=== PATIENT | male | born 1935 | race African-American/Black ===

== ENCOUNTER 2017-03-08 07:01 | Emergency (ER) | payer MEDICARE ==
[2017-03-08 07:33] LABS: #Eosinphils 0.3 thou/uL (0.0-0.7); #Monocytes 0.7 thou/uL (0.11-0.59); %Basophils 0.8 % (0.0-1.0); %Eosinophils 5.3 % (0.0-10.0); %Lymphocytes 32.4 % (21.0-51.0); Hematocrit 35.2 % (42.0-52.0); Mean Platelet Volume 7.6 fL (7.4-10.4); Red Blood Cell (RBC) Count 4.02 mill/uL (4.70-6.10); White Blood Cell (WBC) Count 6.1 thou/uL (4.8-10.8)
[2017-03-08 07:51] LABS: PTT 33.2 SEC (22.9-36.1); Prothrombin Time 15.3 SEC (12.0-14.7)
[2017-03-08 07:51] LABS: ALT (SGPT) 59 U/L (8-55); AST (SGOT) 38 U/L (5-34); Alkaline Phosphatase 61 U/L (40-150); Anion Gap 11 mmol/L (10-20); BUN (Urea Nitrogen) 24 mg/dL (8.4-25.7); Bilirubin, Total 0.8 mg/dL (0.2-1.2); Calc. Creatinine Clearance 0 mL/min (70-130); Calcium 9.5 mg/dL (7.8-10.44); Carbon Dioxide 24 mmol/L (23-31); Chloride 105 mmol/L (98-107); Estimated GFR-MDRD 53; Globulin 3.5 g/dL (2.4-3.5); Protein, Total 7.6 g/dL (5.8-8.1)
[2017-03-08 09:18] LABS: Bilirubin Unable to Interpret (Negative); Glucose, Urine (Dipstick) Unable to Interpret mg/dL (Negative); Ketone, Urine Unable to Interpret mg/dL (Negative); Nitrite Unable to Interpret (Negative); Urobilinogen UNABLE TO INTERPRET mg/dL (0.2-1.0)
[2017-03-08 09:19] LABS: Blood, Urine Unable to Interpret (Negative)
[2017-03-08 09:23] LABS: Protein, Urine (Dipstick) Unable to Interpret mg/dL (Neg-Trace)
[2017-03-08 09:25] LABS: Bacteria/HPF None Seen HPF (None Seen); Hyaline Casts/LPF 0-3 HYALINE CAST LPF (0-3 Hyaline); RBC/HPF GREATER THAN 50-TNTC HPF (0-3)
== END 2017-03-08 10:01 | disposition home or self-care (01) ==
LOC: ERS 07:01
DX: R31.9 Hematuria, unspecified (principal); R33.9 Retention of urine, unspecified; I25.10 Atherosclerotic heart disease of native coronary artery without angina pectoris; K21.9 Gastro-esophageal reflux disease without esophagitis; I10 Essential (primary) hypertension; M10.9 Gout, unspecified; Z79.899 Other long term (current) drug therapy; Z79.01 Long term (current) use of anticoagulants
CPT/HCPCS: 36415; 51702; 80053; 81003; 81015; 85025; 85610; 85730

== ENCOUNTER 2017-04-11 08:05 | Outpatient (CLI) | payer MEDICARE ==
--- NOTE | 2017-04-11 10:08 | ULT ---
RENAL ULTRASOUND: Indication: Gross hematuria. Comparison: None. FINDINGS: No hydronephrosis or focal renal lesion is evident. Right kidney measures 12.8 x 6.0 x 4.9 cm. Left kidney measures 11.2 x 5.9 x 4.8 cm. The pre void bladder volume is 351.2 cc. Post void bladder volume is 79.4 cc. IMPRESSION: No focal renal lesion or hydronephrosis. POS: [facility]
== END 2017-04-11 08:06 | disposition home or self-care (01) ==
LOC: ULT 08:05
PROVIDERS: ATTEND Urology
DX: R31.0 Gross hematuria (principal)
CPT/HCPCS: 76770

== ENCOUNTER 2017-07-04 10:37 | Emergency (ER) | payer MEDICARE ==
--- NOTE | 2017-07-04 11:08 | RAD ---
LEFT HIP 2 VIEWS: HISTORY: An 82-year-old male with a history of left hip pain walking with a cane. FINDINGS: There are some degenerative changes of the left hip joint. Greater trochanteric and lesser trochante chrissie enthesophytic change as well as some generalized enthesophytic changes of the pelvis. Extensive postsurgical changes in the soft tissue pelvis with prominent vascular calcifications. No acute frac ture or dislocation. IMPRESSION: No acute fracture or dislocation. Prominent degenerative changes. POS: [facility]
== END 2017-07-04 12:27 | disposition home or self-care (01) ==
LOC: ERS 10:37
DX: S70.02XA Contusion of left hip, initial encounter (principal); I69.351 Hemiplegia and hemiparesis following cerebral infarction affecting right dominant side; I25.10 Atherosclerotic heart disease of native coronary artery without angina pectoris; K21.9 Gastro-esophageal reflux disease without esophagitis; I10 Essential (primary) hypertension; M10.9 Gout, unspecified; Z79.01 Long term (current) use of anticoagulants; Z79.899 Other long term (current) drug therapy; X58.XXXA Exposure to other specified factors, initial encounter

== ENCOUNTER 2017-07-30 11:24 | Outpatient (CLI) | payer MEDICARE | END 2017-07-30 11:25 | disposition home or self-care (01) | LOC: BICRAD 11:24 | PROVIDERS: ATTEND Nurse Practitioner Family | DX: R03.1 Nonspecific low blood-pressure reading (principal); I10 Essential (primary) hypertension; I25.10 Atherosclerotic heart disease of native coronary artery without angina pectoris; I51.7 Cardiomegaly; R53.82 Chronic fatigue, unspecified | CPT/HCPCS: 71046 ==

== ENCOUNTER 2017-07-31 19:15 | Inpatient (IN) | payer MEDICARE ==
[2017-07-31 20:32] LABS: Hemoglobin 6.1 g/dL (14.0-18.0); Mean Corpuscular HGB CONC 33.6 g/dL (32.0-36.0); Mean Corpuscular Hemoglobin 26.7 pg (27.0-31.0); Mean Corpuscular Volume 79.5 fl (80.0-94.0); Mean Platelet Volume 7.5 fL (7.4-10.4); Platelet Count 224 thou/uL (130-400); RBC Distribution Width 15.4 % (11.5-14.5); Red Blood Cell (RBC) Count 2.28 mill/uL (4.70-6.10)
[2017-07-31 20:40] LABS: INR-International Normal Ratio 1.5; Prothrombin Time 18.9 SEC (12.0-14.7)
[2017-07-31 20:45] LABS: PTT 34.2 SEC (22.9-36.1)
[2017-07-31 20:48] LABS: ALT (SGPT) 15 U/L (8-55); AST (SGOT) 16 U/L (5-34); Albumin 3.5 g/dL (3.4-4.8); Alkaline Phosphatase 39 U/L (40-150); Anion Gap 11 mmol/L (10-20); BUN (Urea Nitrogen) 19 mg/dL (8.4-25.7); Bilirubin, Total 0.6 mg/dL (0.2-1.2); Calc. Creatinine Clearance 0 mL/min (70-130); Calcium 8.6 mg/dL (7.8-10.44); Carbon Dioxide 21 mmol/L (23-31); Chloride 111 mmol/L (98-107); Estimated GFR-MDRD 54; Globulin 2.7 g/dL (2.4-3.5); Glucose 113 mg/dL (83-110); Potassium 4.3 mmol/L (3.5-5.1); Protein, Total 6.2 g/dL (5.8-8.1); Sodium 139 mmol/L (136-145)
[2017-07-31 21:02] LABS: Anisocytosis SLIGHT = 6-15 cells (100X) (0-5/hpf); Band 1 % (5-11); Hypochromia SLIGHT = 6-15 cells (100X) (0-5/hpf); Lymphocytes 15 % (21-51); MDiff Complete? YES; Microcytosis SLIGHT = 6-15 cells (100X) (0-5/hpf); Monocytes 4 % (0-10); Neutrophil 80 % (42-75); PLT Morphology Comment Appears Adequate; Schistocytes SLIGHT = 2-5 cells (100X) (0-1/hpf)
[2017-07-31] MEDS ORDERED: Pantoprazole 40 MG VIAL ONE (22:19)
[2017-07-31] MEDS ORDERED: Pantoprazole 80 MG, Admixture Fee 1 EACH in Sodium Chloride 0.9% 100 ML IVP SCH (22:30)
[2017-08-01] MEDS ORDERED: Sodium Chloride 0.9% 1,000 ML IV SCH (02:00)
[2017-08-01 02:09] VITALS: BMI 28.0
[2017-08-01] MEDS ORDERED: Diabetic Tussin 200 MG/10 ML UDCUP PO PRN (06:44)
[2017-08-01] MEDS ORDERED: Milk Of Magnesia 30 ML UDCUP PO PRN (06:44)
[2017-08-01] MEDS ORDERED: Mag-Al 1200 mg/1200 mg/30 ML UDCUP PO PRN (06:44)
[2017-08-01] MEDS ORDERED: Senokot 8.6 MG TAB PO PRN (06:44)
[2017-08-01] MEDS ORDERED: Loperamide HCl 2 MG CAP PO PRN (06:44)
[2017-08-01] MEDS ORDERED: Ondansetron HCl/PF 4 MG/2 ML Vial IVP PRN (06:44)
[2017-08-01] MEDS ORDERED: Sodium Chloride 0.65% Nasal 44 ML BOT EA NARE PRN (06:44)
[2017-08-01] MEDS ORDERED: Zolpidem Tartrate 5 MG TAB PO PRN (06:44)
[2017-08-01] MEDS ORDERED: Acetaminophen 325 MG TAB PO PRN (06:44)
[2017-08-01] MEDS ORDERED: Eucerin (Mineral Oil/Petrolatum,White) 30 gm Jar TOP PRN (06:44)
[2017-08-01] MEDS ORDERED: Loratadine 10 MG TAB PO PRN (06:44)
[2017-08-01] MEDS ORDERED: hydrALAZINE 20 MG/ML VIAL SLOW IVP PRN (06:44)
[2017-08-01] MEDS ORDERED: Artificial Tears 18 DROP/0.9 ML EA EYE PRN (06:44)
[2017-08-01] MEDS ORDERED: Chloraseptic Spray 180 ml Bottle PO PRN (06:44)
[2017-08-01] MEDS: Sodium Chloride 0.9% 1,000 ML IV SCH ×2 (08:39→23:41)
[2017-08-01] MEDS: Finasteride 5 MG TAB PO SCH (08:43)
[2017-08-01] MEDS: Tamsulosin HCl 0.4 MG CAP PO SCH ×2 (08:44→20:13)
[2017-08-01] MEDS: Ferrous Sulfate 325 MG TAB PO SCH (08:44)
[2017-08-01] MEDS: Carvedilol 3.125 MG TAB PO SCH ×2 (08:44→20:12)
[2017-08-01] MEDS: Calcium Carbonate 600 MG TAB PO SCH ×2 (08:45→20:13)
[2017-08-01] MEDS ORDERED: Ferrous Sulfate 325 MG TAB PO SCH (09:00)
[2017-08-01] MEDS ORDERED: Tamsulosin HCl 0.4 MG CAP PO SCH (09:00)
[2017-08-01] MEDS ORDERED: Non-Formulary Item 1 EACH (Cholecalciferol (Vitamin D3) [Vitamin D3] 1 TAB) PO SCH (09:00)
[2017-08-01] MEDS ORDERED: Calcium Carbonate 600 MG TAB PO SCH (09:00)
[2017-08-01] MEDS ORDERED: Finasteride 5 MG TAB PO SCH (09:00)
[2017-08-01] MEDS: Pantoprazole 80 MG in Sodium Chloride 0.9% 100 ML IVP SCH ×2 (10:55→20:14)
[2017-08-01 11:38] LABS: #Eosinphils 0.1 thou/uL (0.0-0.7); #Lymphocytes 0.8 thou/uL (1.20-3.40); #Monocytes 0.6 thou/uL (0.11-0.59); #Neutrophils 7.7 thou/uL (1.40-6.50); %Eosinophils 0.8 % (0.0-10.0); %Lymphocytes 8.5 % (21.0-51.0); %Monocytes 6.5 % (0.0-10.0); %Neutrophils 84.2 % (42.0-75.0); Hemoglobin 8.9 g/dL (14.0-18.0); Mean Corpuscular HGB CONC 33.4 g/dL (32.0-36.0); Mean Corpuscular Hemoglobin 26.6 pg (27.0-31.0); Mean Corpuscular Volume 79.6 fl (80.0-94.0); Mean Platelet Volume 7.7 fL (7.4-10.4); Platelet Count 221 thou/uL (130-400); RBC Distribution Width 14.8 % (11.5-14.5); Red Blood Cell (RBC) Count 3.34 mill/uL (4.70-6.10); White Blood Cell (WBC) Count 9.2 thou/uL (4.8-10.8)
[2017-08-01 11:55] LABS: Bilirubin Negative (Negative); Blood, Urine Negative (Negative); Clarity CLEAR (Clear); Glucose, Urine (Dipstick) Negative (Negative); Leukocyte Negative (Negative); Nitrite Negative (Negative); Protein, Urine (Dipstick) Negative (Neg-Trace); Specific Gravity, Urine 1.009 (1.002-1.036)
[2017-08-01 12:00] LABS: Bacteria/HPF None Seen HPF (None Seen); Hyaline Casts/LPF 0-3 HYALINE CAST LPF (0-3 Hyaline); RBC/HPF 0-3 HPF (0-3); Squamous Epithelial 0-3 HPF (0-3); WBC/HPF None Seen HPF (0-3)
[2017-08-01] MEDS ORDERED: Acetaminophen 1,000 MG in Premix Bag 1 BAG IVPB SCH (12:00)
--- NOTE | 2017-08-01 12:31 | RAD ---
TWO VIEWS CHEST: Comparison: 05-11-16 History: Cough. FINDINGS: Two views of the chest shows a normal sized cardiomediastinal silhouette. There is a cardiac monitori ng device in the left chest wall. There is no evidence of consolidation, mass, or pleural effusions. Degenerative changes are seen in the spine. IMPRESSION: No evidence of acute cardiopulmonary disease. POS: [facility]
[2017-08-01] MEDS: cefTRIAXone\\ROCEPHIN 1 GM in Sodium Chloride 0.9% 100 ML IVPB SCH (13:31)
--- NOTE | 2017-08-01 13:31 | HP ---
PRIMARY CARE PHYSICIAN: Ok Brady. REASON FOR ADMISSION: Sent from primary care physician's office for low hemoglobin. HISTORY OF PRESENT ILLNESS: An 82-year-old -[place] male who has history of stroke as well a s he is on chronic anticoagulation therapy with Xarelto. For last few days he was experiencing cough productive of scant amount of sputum. This was going on for last 3-4 days. The patient did follow with primary care physician and patient had routine blood test done which showed low hemoglobin and h ematocrit. His hemoglobin on admission was 6.1 and that is why patient was instructed to go to the e mergency room for possible need of blood transfusion. Patient also reported that for last 3-4 days, he is having black tarry stools on and off. The patien t was feeling weak and dizziness. He did not have any chest pain, but he was having cough. He denie s any shortness of breath. He did not have any fever at home, but in the emergency room, he was havi ng low grade fever and subsequently when he was admitted to medical floor, he was having 101 fever. The patient was admitted to medical floor and he received 2 units of blood transfusion. When I saw, at that time, patient was complaining of cough. We did chest x-ray and subsequently patient also had spiked fever and at that time, patient became tachycardic and tachypneic. The patient is n.p.o. sin ce midnight because plan for upper endoscopy. Patient denies any UTI symptoms. He denies any NSAID. He denies any abdominal pain. He denies any flu-like illness. He denies any sore throat, headache, pleurisy. REVIEW OF SYSTEMS: The following complete review of systems was negative, unless otherwise mentioned in the HPI or below: Constitutional: Weight loss or gain, ability to conduct usual activities. Skin: Rash, itching. Eyes: Double vision, pain. ENT/Mouth: Nose bleeding, neck stiffness, pain, tenderness. Cardiovascular: Palpitations, dyspnea on exertion, orthopnea. Respiratory: Shortness of breath, wheezing, cough, hemoptysis, fever or night sweats. Gastrointestinal: Poor appetite, abdominal pain, heartburn, nausea, vomiting, constipation, or diarr hea. Genitourinary: Urgency, frequency, dysuria, nocturia. Musculoskeletal: Pain, swelling. Neurologic/Psychiatric: Anxiety, depression. Allergy/Immunologic: Skin rash, bleeding tendency. Please see my HPI for pertinent positive and negative. All other review of systems reviewed and nega tive except as mentioned in the HPI. ALLERGIES: IBUPROFEN and HYDROCODONE. CURRENT HOME MEDICATIONS: Aspirin 81 mg p.o. daily, Lipitor 20 mg p.o. at bedtime, calcium carbonate 600 mg p.o. b.i.d., Coreg 25 mg p.o. b.i.d., vitamin D3 1000 units p.o. daily, ferrous sulfate 325 m g p.o. daily, Proscar 5 mg p.o. daily, losartan 100 mg p.o. daily, Procardia-XL 60 mg p.o. daily, Pro tonix 40 mg p.o. daily, Xarelto 20 mg p.o. at bedtime, Flomax 0.4 mg p.o. b.i.d. PAST MEDICAL HISTORY: History of right pontine cerebrovascular accident, coronary artery disease, ch ronic anticoagulation, gastroesophageal reflux disease, hypertension, gout, chronic kidney disease st age 5, benign enlargement of prostate. PAST SURGICAL HISTORY: Lymph node removed, nearby prostate in 1998, LINQ conveyor monitor inserted by Dr. Campbell. PAST PSYCHIATRIC HISTORY: Reviewed and negative. SOCIAL HISTORY: The patient is . He drinks alcohol socially. He denies any other illicit dr ug abuse. He denies any smoking. FAMILY HISTORY: No strong family history of premature coronary artery disease, stroke or cancer. EMERGENCY ROOM COURSE: Patient has received 2 units of blood transfusion. After admission, patient is getting Protonix drip. PHYSICAL EXAMINATION: VITAL SIGNS: On arrival, blood pressure 136/65, pulse 77, respiratory rate 18, temperature 98.3, sat uration 97% on room air and weight 99.8 kilograms. GENERAL: Patient is currently alert, awake, no obvious acute distress. HEAD: Normocephalic, atraumatic. EYES: Pupils round, reactive to light. Extraocular muscle intact. ENT: Oropharynx within normal limit. Pale mucous membranes. Pale conjunctivae. NECK: Supple, no JVD, no thyromegaly, no carotid bruit. LUNGS: Few end expiratory wheezing heard, coarse breath sounds noted. No rales. No accessory muscl es of respiration in use. CARDIAC: S1 and S2 appears regular. No murmur elicited, no gallop, no rub. ABDOMEN: Soft, bowel sounds present, nontender, nondistended. No organomegaly, no mass, no suprapub ic tenderness. BACK: Examination unremarkable, no CVA tenderness. EXTREMITIES: Upper extremity passive movement of all joints are normal. Lower extremities, no edema . Good peripheral pulsation. SKIN: No skin rash. HEMATOLOGICAL SYSTEM: No lymphadenopathy. PSYCHIATRIC: Normal affect. NEUROLOGIC: Nonfocal examination at this point, SIGNIFICANT LABORATORY DATA AND IMAGING DATA: 1. CBC: WBC is 6.60, hemoglobin 6.1, platelet 224 after 2 unit blood transfusion, hemoglobin 8.9. INR 1.5. 2. BMP: Sodium 139, potassium 4.3, chloride 111, carbon dioxide 21, BUN 19, creatinine 1.50, glucos e 113, and calcium 8.6. 3. LFT: AST 16, ALT 15, alkaline phosphatase 39, albumin 3.5. Stool for guaiac positive. 4. Chest x-ray done after admission and reviewed by me. ASSESSMENT AND PLAN/IMPRESSION: 1. Acute gastrointestinal bleed. Most likely, patient has upper gastrointestinal bleed. The patien t is on chronic anticoagulation therapy with Xarelto. The patient gave history of black tarry stool intermittently for the last several days. Patient also has symptomatic anemia secondary to gastroint estinal bleed. Patient is already given 2 units of blood transfusion. Currently, patient is on Prot michael drip. Gastroenterology is consulted and plan for an upper endoscopic evaluation. Will monitor hemoglobin and hematocrit. 2. Anemia due to acute blood loss. This patient's baseline hemoglobin is running around 11, but tod ay it was 6.1. He responded to 2 units of blood transfusion. We will monitor hemoglobin and we will repeat labs tomorrow. To find out etiology of anemia, patient is planned for upper endoscopy today. 3. Sepsis. The patient does have cough as well as patient has high-grade fever, tachycardia, tachyp hunter. He meets sepsis criteria. Source of infection is most likely bronchitis. We will start Roceph in 1 gram 24 hours, Levaquin 500 mg IV daily, Mucinex 600 mg t.i.d., and DuoNeb q.6 hourly. We will also obtain blood and urine culture to rule out any other infection. 4. Coronary artery disease with history of stent. At this point, because of bleeding, we have to ho ld aspirin therapy. We will continue with Xarelto 20 mg p.o. at bedtime. We are going to reduce Cor eg to 3.125 mg p.o. b.i.d. for today. If blood pressure permits, then we will increase back to 25 b. i.d. We will hold losartan therapy at this point because of bleeding and risk of hypotension. 5. History of hypertension. Currently blood pressure is marginally normal and because of that, we w ill hold losartan and Procardia-XL today and we will reduce dose of Coreg to 3.125 mg p.o. b.i.d. 6. Benign enlargement of prostate. We will continue Proscar 5 mg p.o. daily and Flomax 0.4 mg p.o. b.i.d. 7. History of cerebrovascular accident. The patient will need PT evaluation after stabilization bef ore discharge. 8. Deep venous thrombosis prophylaxis. Sequential compression device boots only. No Xarelto becaus e of bleeding. 9. Gastrointestinal prophylaxis. Patient is already on Protonix drip. 10. Code status: The patient is FULL CODE. The patient's is surrogate decision maker. Disposition plan based on clinical course. We are expecting patient's stay in hospital more than 2 m idnights. Plan of care discussed with the patient in detail.
[2017-08-01] MEDS: guaiFENesin ER 600 MG TAB PO SCH ×2 (14:33→20:13)
[2017-08-01] MEDS ORDERED: Digoxin 0.5 MG/2 ML AMP SLOW IVP SCH ×2 (15:15→17:00)
[2017-08-01] MEDS ORDERED: Sodium Chloride 0.9% 500 ML IV SCH (15:15)
--- NOTE | 2017-08-01 15:34 | PRG ---
DATE OF SERVICE: 08/01/2017 The patient was seen and examined at bedside today. Again, after noon time, patient was tachycardic. The patient also had a fever of 102.7 and her pulse went up to 150s. EKG was done and EKG is consi stent with atrial flutter with variable block. At this point, patient's blood pressure is 105/70 and patient is feeling weak and tired. I spoke with Dr. Gamez and canceled upper endoscopy procedur e. We decided to transfer him to telemetry floor. Over there, we will give him digoxin 0.25 mg 1 ti me dose as well as Cardizem 10 mg IV one time dose. We will consult Cardiology and will give him angelica us fluid for low blood pressure as well. We will start clear liquid diet. We will cancel upper endo scopy at this point and will monitor on telemetry floor.
[2017-08-01 15:55] LABS: Hemoglobin 9.1 g/dL (14.0-18.0)
[2017-08-01 16:26] LABS: CKMB 0.6 ng/mL (0-6.6); Troponin I 0.021 ng/mL (< 0.028)
[2017-08-01] MEDS: Atorvastatin Calcium 20 MG TAB PO SCH (20:13)
--- NOTE | 2017-08-01 22:21 | CON ---
DATE OF CONSULT: 08/01/17 HISTORY OF PRESENT ILLNESS: The patient is an 82-year-old gentleman who presented with a GI hemorrhage and was noted to have a rapid heart rate. The patient has a previous history of a cerebrovascular accident. He was seen in 2001 with a CVA.. He was found to have a right pontine cerebrovascular accident. The patient was treated with aspirin. He represented in August 2016. He had placement of automatic implantable loop recorder. The patient was apparently found to have atrial arrhythmias. He was started on Eliquis. He took this for several months. He would note some GI hemorrhage and was switched to Xarelto. The patient presented with marked anemia and was noted to have recently dark stool. The patient denies having any chest pain. He denies any palpitations. The patient was scheduled to undergo an endoscopy today and was found to have a very elevated heart rate. PAST MEDICAL HISTORY: 1. Hypertension. 2. Diabetes mellitus. 3. Gout. 4. Chronic renal insufficiency. PAST SURGICAL HISTORY: He has had prostate surgery. He has also had a lymph node biopsy. SOCIAL HISTORY: Nonsmoker. No excessive use of alcohol. MEDICATIONS ON ADMISSION: Losartan 100 daily, Procardia 60 XL daily, Protonix 40 daily, Xarelto 20 at bedtime, Flomax 0.4 b.i.d., Coreg 25 b.i.d., calcium carbonate 600 b.i.d., Lipitor 20 at bedtime, aspirin 81 daily. FAMILY HISTORY: No strong family history of coronary artery disease. REVIEW OF SYSTEMS: Ten point system otherwise unremarkable other than dark stools. Ten point system otherwise unremarkable. PHYSICAL EXAMINATION: GENERAL: This is an elderly gentleman in no acute distress with a blood pressure of 119/68. NECK: Showed no jugular vein distention. LUNGS: Clear to auscultation. HEART: Regular rate and rhythm, normal S1, S2, no murmurs. ABDOMEN: Nondistended. EXTREMITIES: Showed no edema. SKIN: Dry. NEUROLOGIC: Nonfocal. VASCULAR: Radial pulses are 2+. LABORATORY: Sodium 139, potassium 4.3, chloride 111, bicarbonate 21, BUN 19, creatinine is 1.5. His glucose was 113. Troponin 0.021. His white blood cell count was 9.2, hemoglobin 8.9, hematocrit 26.6 and his platelets are 221. EKG revealed atrial flutter with variable AV conduction. IMPRESSION: 1. New onset atrial flutter. 2. Gastrointestinal hemorrhage. 3. Hypertension. 4. History of diabetes mellitus. 5. History of cerebrovascular accident. This gentleman presents with rapid atrial flutter. We will treat the patient with IV digoxin and Cardizem. We will follow this patient with you through his hospitalization. ARNEL
[2017-08-02 06:15] LABS: #Lymphocytes 1.5 thou/uL (1.20-3.40); #Monocytes 1.4 thou/uL (0.11-0.59); #Neutrophils 11.3 thou/uL (1.40-6.50); %Basophils 0.1 % (0.0-1.0); %Eosinophils 0.1 % (0.0-10.0); %Lymphocytes 10.5 % (21.0-51.0); %Monocytes 9.5 % (0.0-10.0); %Neutrophils 79.7 % (42.0-75.0); Hemoglobin 7.3 g/dL (14.0-18.0); Mean Corpuscular HGB CONC 32.7 g/dL (32.0-36.0); Mean Corpuscular Hemoglobin 26.1 pg (27.0-31.0); Mean Corpuscular Volume 79.8 fl (80.0-94.0); Mean Platelet Volume 7.5 fL (7.4-10.4); Platelet Count 191 thou/uL (130-400); RBC Distribution Width 14.6 % (11.5-14.5); Red Blood Cell (RBC) Count 2.81 mill/uL (4.70-6.10); White Blood Cell (WBC) Count 14.2 thou/uL (4.8-10.8)
[2017-08-02 06:17] LABS: ALT (SGPT) 11 U/L (8-55); AST (SGOT) 14 U/L (5-34); Alkaline Phosphatase 34 U/L (40-150); Anion Gap 10 mmol/L (10-20); BUN (Urea Nitrogen) 17 mg/dL (8.4-25.7); Bilirubin, Total 1.5 mg/dL (0.2-1.2); Calc. Creatinine Clearance 51 mL/min (70-130); Calcium 8.2 mg/dL (7.8-10.44); Carbon Dioxide 22 mmol/L (23-31); Chloride 111 mmol/L (98-107); Estimated GFR-MDRD 52; Globulin 2.6 g/dL (2.4-3.5); Glucose 100 mg/dL (83-110); Potassium 3.9 mmol/L (3.5-5.1); Protein, Total 5.6 g/dL (5.8-8.1); Sodium 139 mmol/L (136-145)
[2017-08-02] MEDS: Pantoprazole 80 MG in Sodium Chloride 0.9% 100 ML IVP SCH (06:18)
[2017-08-02] MEDS: guaiFENesin ER 600 MG TAB PO SCH ×3 (08:15→22:27)
[2017-08-02] MEDS: Tamsulosin HCl 0.4 MG CAP PO SCH ×2 (08:16→22:27)
[2017-08-02] MEDS: Carvedilol 3.125 MG TAB PO SCH ×2 (08:16→22:27)
[2017-08-02] MEDS: Calcium Carbonate 600 MG TAB PO SCH ×2 (08:16→22:28)
[2017-08-02] MEDS: Finasteride 5 MG TAB PO SCH (08:16)
[2017-08-02] MEDS: Ferrous Sulfate 325 MG TAB PO SCH (08:17)
--- NOTE | 2017-08-02 10:45 | PDOC.PN ---
- Subjective Encounter Start Date: 08/02/17 Encounter Start Time: 07:30 -: old records requested/rev Patient seen and examined for GI bleed. No new complaints. No overnight events he converted to NSR he feels better - Objective Resuscitation Status: Resuscitation Status FULL:Full Resuscitation MAR Reviewed: Yes Vital Signs & Weight: Vital Signs (12 hours) Temp Pulse Pulse Resp BP BP Pulse Ox 08/02/17 08:38 99.3 F 67 16 123/68 91 L 08/02/17 08:31 98.4 F 65 16 134/62 92 L 08/02/17 07:07 99.3 F 69 16 121/58 L 90 L 08/02/17 04:00 99.9 F H 69 18 124/60 94 L 08/02/17 00:00 99.5 F 65 24 H 129/60 92 L 08/01/17 23:43 98.1 F 97 16 118/56 L 96 Weight Weight 210 lb 1.6 oz I&O: 08/01/17 08/02/17 08/03/17 06:59 06:59 06:59 Intake Total 350 1738 240 Output Total 450 Balance 350 1288 240 Result Diagrams: 08/02/17 05:48 08/02/17 05:48 Additional Labs: Accuchecks 08/01/17 21:37 POC Glucose 169 H EKG Reviewed by me: Yes (nsr) Phys Exam - Physical Examination Constitutional: NAD HEENT: PERRLA, moist MMs, sclera anicteric Neck: no JVD, supple Respiratory: no wheezing, no rales, no rhonchi Cardiovascular: RRR, no significant murmur, no rub Gastrointestinal: soft, non-tender, no distention, positive bowel sounds Musculoskeletal: no edema, pulses present Neurological: non-focal, normal sensation, moves all 4 limbs Lymphatic: no nodes Psychiatric: normal affect, A&O x 3 Skin: no rash, normal turgor Dx/Plan (1) Acute bronchitis Code(s): J20.9 - ACUTE BRONCHITIS, UNSPECIFIED Status: Acute Qualifiers: Bronchitis organism: unspecified organism Qualified Code(s): J20.9 - Acute bronchitis, unspecified (2) Anemia due to acute blood loss Code(s): D62 - ACUTE POSTHEMORRHAGIC ANEMIA Status: Acute (3) Atrial flutter with rapid ventricular response Code(s): I48.92 - UNSPECIFIED ATRIAL FLUTTER Status: Acute (4) GI bleed Code(s): K92.2 - GASTROINTESTINAL HEMORRHAGE, UNSPECIFIED Status: Acute (5) Sepsis Code(s): A41.9 - SEPSIS, UNSPECIFIED ORGANISM Status: Acute (6) BPH (benign prostatic hyperplasia) Code(s): N40.0 - BENIGN PROSTATIC HYPERPLASIA WITHOUT LOWER URINRY TRACT SYMP Status: Chronic (7) CKD (chronic kidney disease) stage 3, GFR 30-59 ml/min Code(s): N18.3 - CHRONIC KIDNEY DISEASE, STAGE 3 (MODERATE) Status: Chronic (8) Chronic anticoagulation Code(s): Z79.01 - PATTERN GATER (CURRENT) USE OF ANTICOAGULANTS Status: Chronic (9) Dyslipidemia Code(s): E78.5 - HYPERLIPIDEMIA, UNSPECIFIED Status: Chronic (10) H/O: CVA (cerebrovascular accident) Code(s): Z86.73 - PRSNL HX OF TIA (TIA), AND CEREB INFRC W/O RESID DEFICITS Status: Chronic (11) HTN (hypertension) Code(s): I10 - ESSENTIAL (PRIMARY) HYPERTENSION Status: Chronic - Plan cont current plan of care, continue antibiotics * will transfuse 1 unit PRBC today * repeat labs tomorrow * today plan for EGD * cardiology recommendation noted * will monitor on tele * medication reviewed as below * symptomatic treatment. Review of Systems - Review of Systems Constitutional: negative: fever, chills, sweats, weakness, malaise, other Eyes: negative: Pain, Vision Change, Conjunctivae Inflammation, Eyelid Inflammation, Redness, Other ENT: negative: Ear Pain, Ear Discharge, Nose Pain, Nose Discharge, Nose Congestion, Mouth Pain, Mouth Swelling, Throat Pain, Throat Swelling, Other Respiratory: negative: Cough, Dry, Shortness of Breath, Hemoptysis, SOB with Excertion, Pleuritic Pain, Sputum, Wheezing Cardiovascular: negative: chest pain, palpitations, orthopnea, paroxysmal nocturnal dyspnea, edema, light headedness, other Gastrointestinal: negative: Nausea, Vomiting, Abdominal Pain, Diarrhea, Constipation, Melena, Hematochezia, Other Genitourinary: negative: Dysuria, Frequency, Incontinence, Hematuria, Retention , Other Musculoskeletal: negative: Neck Pain, Shoulder Pain, Arm Pain, Back Pain, Hand Pain, Leg Pain, Foot Pain, Other Skin: negative: Rash, Lesions, [place], Bruising, Other - Medications/Allergies Allergies/Adverse Reactions: Allergies Allergy/AdvReac Type Severity Reaction Status Date / Time hydrocodone Allergy Verified 08/01/17 01:53 ibuprofen Allergy Verified 08/01/17 01:53 Medications: Current Medications Acetaminophen (Tylenol) 650 mg PO Q4H PRN PRN Reason: Headache/Fever or Pain Al Hydroxide/Mg Hydroxide (Maalox) 30 ml PO Q6H PRN PRN Reason: Heartburn or Indigestion Albuterol/Ipratropium (Duoneb) 3 ml NEB Q6H PRN PRN Reason: SOB &/or Wheezing Artificial Tears (Tears Naturale) 0 drop EA EYE PRN PRN PRN Reason: Dry Eyes Atorvastatin Calcium (Lipitor) 20 mg PO HS [facility] Last Admin: 08/01/17 20:13 Dose: 20 mg Calcium Carbonate (Caltrate) 600 mg PO BID [facility] Last Admin: 08/02/17 08:16 Dose: Not Given Carvedilol (Coreg) 3.125 mg PO BID [facility] Last Admin: 08/02/17 08:16 Dose: 3.125 mg Cholecalciferol (Vitamin D3) 1,000 units PO DAILY [facility] Last Admin: 08/02/17 08:17 Dose: Not Given Ferrous Sulfate (Feosol) 325 mg PO DAILY [facility] Last Admin: 08/02/17 08:17 Dose: Not Given Finasteride (Proscar) 5 mg PO DAILY [facility] Last Admin: 08/02/17 08:16 Dose: 5 mg Guaifenesin (Robitussin Sf) 200 mg PO Q4H PRN PRN Reason: Cough Guaifenesin (Mucinex) 600 mg PO TID [facility] Last Admin: 08/02/17 08:15 Dose: 600 mg Hydralazine HCl (Apresoline) 10 mg SLOW IVP Q4H PRN PRN Reason: Systolic BP > 180 Sodium Chloride (Normal Saline 0.9%) 1,000 mls @ 70 mls/hr IV .[id number] [facility] Last Admin: 08/01/17 23:41 Dose: 1,000 mls Pantoprazole Sodium 80 mg/ (Sodium Chloride) 100 mls @ 10 mls/hr IVP INF [facility] Last Admin: 05/18/18 06:18 Dose: 100 mls Ceftriaxone Sodium 1 gm/ (Sodium Chloride) 100 mls @ 200 mls/hr IVPB 1200 [facility] Last Admin: 08/01/17 13:31 Dose: 100 mls Levofloxacin 500 mg/ Device 100 mls @ 100 mls/hr IVPB 1300 [facility] Last Admin: 08/01/17 14:36 Dose: 100 mls Diltiazem HCl 125 mg/ Sodium (Chloride) 125 mls @ 10 mls/hr IVPB INF [facility]; 10 MG /HR PRN Reason: Protocol Last Admin: 08/02/17 04:14 Dose: 125 mls Loperamide HCl (Imodium) 2 mg PO PRN PRN PRN Reason: Diarrhea/Loose Stools Loratadine (Claritin) 10 mg PO DAILYPRN PRN PRN Reason: Sinus Symptoms Magnesium Hydroxide (Milk Of Magnesium) 30 ml PO DAILYPRN PRN PRN Reason: Constipation Mineral Oil/White Petrolatum (Eucerin Cream) 0 gm TOP BIDPRN PRN PRN Reason: Dry Skin Ondansetron HCl (Zofran Odt) 4 mg PO Q6H PRN PRN Reason: Nausea/Vomiting Ondansetron HCl (Zofran) 4 mg IVP Q6H PRN PRN Reason: Nausea/Vomiting Phenol (Chloraseptic [place] 180 Ml Bot) 0 ml PO PRN PRN PRN Reason: Sore Throat Senna (Senokot) 2 tab PO HSPRN PRN PRN Reason: Constipation Sodium Chloride (Gillespie Nasal [place] 0.65%) 0 ml EA NARE QIDPRN PRN PRN Reason: Nasal Congestion Sodium Chloride (Flush - Normal Saline) 10 ml IVF Q12HR [facility] Last Admin: 08/02/17 08:16 Dose: 10 ml Sodium Chloride (Flush - Normal Saline) 10 ml IVF PRN PRN PRN Reason: Saline Flush Tamsulosin HCl (Flomax) 0.4 mg PO BID [facility] Last Admin: 08/02/17 08:16 Dose: 0.4 mg Zolpidem Tartrate (Ambien) 5 mg PO HSPRN PRN PRN Reason: Insomnia
--- NOTE | 2017-08-02 11:28 | CON ---
DATE OF CONSULTATION: 08/01/2017 REFERRING PHYSICIAN: Dr. Ana Lilia Cottrell. REASON FOR CONSULTATION: Anemia, history of dark stools. HISTORY OF PRESENT ILLNESS: Mr. Valdo Cooper is a pleasant 82-year-old -[place] male who h as been seen by Shu Euceda who is a primary care doctor. The patient was found to have anemia and w as told to come to the ER. The patient appears very comfortable. The patient hospitalized because o f above reasons, but in the meantime, he was found to have SVT with possible rate of 140-150. The pa trish was seen Dr. Campbell in the past. Apparently, he says he has had similar episodes in the past a nd Dr. Campbell took care of her. The patient denies any chest pain, any difficulty breathing, orthopn ea, or PND. The patient has history of CVA in the past and he is on chronic anticoagulant therapy wi Xarelto. The patient tells me he has been having some coughing off and on, scant sputum for sever al days. There is no prior history of fever. The patient was seen in Dr. Euceda's office because of the above reason and had a CBC done. He was having anemia with hemoglobin of 6.1. There is no prio r history of anemia. The patient tells me he has been having dark stools off and on. Although, the admitting history states he has been having bleeding with black stools for the last 3-4 days. He say s he has had it for a lot longer than that. His stools are light brown. It has been going for more t shah a month. The patient has been feeling weak and tired for the last several days. The patient has no prior history of any GI bleeding. No prior history of any ulcer disease. No prior history of di verticulitis. The patient denies any abdominal pain, nausea, vomiting. He has good appetite. There is no dysphagia or odynophagia. He has no relevant history. Denies taking any NSAID medication rec ently. ALLERGIES: IBUPROFEN and HYDROCODONE. MEDICAL ILLNESSES: 1. Positive CVA. 2. Coronary artery disease. 3. Chronic acid reflux. 4. Hypertension. 5. Gout. 6. Chronic kidney disease. 7. Benign enlargement of prostate and has seen Dr. Ivette Muñiz. He has had some procedure done but not sure exactly what. SURGERIES: 1. Prostate biopsy. 2. LINQ media monitor inserted by Dr. Campbell. 3. Lymph node biopsy in past. SOCIAL HISTORY: The patient is . He drinks alcohol socially. Denies any drug use. No histo ry of smoking in the past. FAMILY HISTORY: No family history of stroke, coronary artery disease, or cancer. MEDICATIONS: List reviewed included; aspirin, Lipitor, calcium carbonate, Coreg, vitamin D3, ferrous sulfate, Proscar, losartan, Procardia-XL, Protonix, Xarelto, Flomax. REVIEW OF SYSTEMS: Constitutional: History of low-grade fever, cough with sputum, dizziness, genera lized fatigue, weakness, etc. Respiratory: History of chronic cough with scanty sputum with low gra de fever. No hemoptysis, no dyspnea. Cardiovascular: No chest pain, no palpitation until this afte rnoon. No exertional dyspnea, orthopnea, or PND. Gastrointestinal: As in history of present illnes s. Genitourinary: No dysuria or hematuria. Musculoskeletal: No back pain, arthralgias. Neuropsyc hiatric: No depression or anxiety. Endocrine: Unremarkable. PHYSICAL EXAMINATION: GENERAL: Reveals a very pleasant, elderly, -Trist[place] male, appears very comfortable. He is i n no distress. He is not short of breath. He is awake, alert, and communicative. VITAL SIGNS: His temperature went up to 101 this afternoon, before it was 98. His pulse rate at pre sent time is almost 140-145, blood pressure 147/91. HEENT: Conjunctivae clear. NECK: Supple. No adenitis or thyromegaly noted. CARDIOVASCULAR: First and second heart sounds normal. LUNGS: Clear to auscultation. ABDOMEN: Soft to palpate. Abdomen is nontender. There is no organomegaly or masses. EXTREMITIES: Reveal no edema. LABORATORY DATA: On admission show acute anemia. WBC 56,000, hemoglobin 6.1, hematocrit 18.1, MCV 7 9.5, platelet count 224,000, polymorphs 18, bands 1, lymphocytes 15. Today after transfusion, hemogl obin up to 8.9, hematocrit 26.6, MCV 79.6, platelet count 221,000. Chemistry panel: Sodium 139, pot assium 4.3, chloride 111, bicarbonate 21, BUN 19, creatinine 1.50, glucose 113, calcium 8.6, bilirubi n is 0.6, AST 16, ALT 15, alkaline phosphatase 39, albumin 3.5. CLINICAL IMPRESSION: An 82-year-old -T[place] male with anemia, which has been going on proba sabrina for several days. Although, he gave history of black tarry stool for last 3 days, but he says he has had it for longer than that No abdominal pain. No nausea or vomiting. Anemia is symptomatic. Based on the MCV, I believe anemia most likely acute on chronic. The source of bleeding was unclear at the present time. 2. Hypertension. 3. Supraventricular tachycardia. 4. Positive cerebrovascular accident. 5. Chronic acid reflux. 6. Benign prostate hypertrophy. RECOMMENDATION: The patient will be transferred to telemetry today. I will hold off the EGD and ree valuate him tomorrow. Will plan for EGD tomorrow.
[2017-08-02] MEDS: cefTRIAXone\\ROCEPHIN 1 GM in Sodium Chloride 0.9% 100 ML IVPB SCH (12:00)
[2017-08-02] MEDS ORDERED: PROPOFOL 200 MG/20 ML VIAL ONE (15:09)
[2017-08-02] MEDS ORDERED: Lidocaine 1% PF 5 ML VIAL ONE (15:09)
[2017-08-02] MEDS: Sodium Chloride 0.9% 1,000 ML IV SCH ×2 (16:21→17:09)
[2017-08-02] MEDS: Dronedarone HCl 400 MG TAB PO SCH (17:09)
[2017-08-02] MEDS ORDERED: GoLYTELY 4,000 ml Bottle PO SCH (19:15)
[2017-08-02] MEDS: Atorvastatin Calcium 20 MG TAB PO SCH (22:28)
--- NOTE | 2017-08-03 00:43 | CON ---
ELECTROPHYSIOLOGY CONSULTATION DATE OF CONSULTATION: 08/02/2017 REFERRING PHYSICIAN: Nikita Mesa MD REASON FOR CONSULT: Multiple GI bleeds while on blood thinners and newly found atrial flutter. HISTORY OF PRESENT ILLNESS: Mr. Cooper is a pleasant 82-year-old gentleman who presented to the [facility] with a GI hemorrhage and also rapid heart rates. He was being evaluated at his primary ca re provider and had a routine blood test done that showed critically low hemoglobin at 6.1 and was in structed to go to the emergency room for blood transfusion. He does report that over the past 3-4 da ys, he noted that he has been having black tarry stools intermittently. He has had associated weakne ss and dizziness as well. He takes Xarelto 20 mg daily as long-term anticoagulation. He denies any additional symptoms leading up to his presentation to the ER. He denies any heart racing, palpitatio ns, chest pain, pressure, syncope, or near syncope. He denies any recent stroke or stroke-like sympt oms. He has a history of strokes initially in 2003 and reports having a stroke last year as well. Krysten hernandez received blood transfusion, now hospitalized and has had intermittent fevers. He was found to be i n atrial flutter with RVR and was placed on a diltiazem drip and has since converted on his own to no rmal sinus rhythm. Today, he is n.p.o. and has just undergone EGD to evaluate for upper GI bleed. Krysten hernandez does not feel he has ever had a history of abnormal heart rhythms in the past this May. REVIEW OF SYSTEMS: Twelve-point review of systems was conducted and is negative except that listed i n the HPI except for the following right lower extremity heaviness/weakness residual from his past st rokes. PAST MEDICAL HISTORY: 1. Hypertension. 2. Diabetes. 3. Gout. 4. Chronic renal insufficiency. 5. Stroke initially in 2003. 6. Chronic anticoagulation, on Xarelto. 7. GI bleed on Eliquis and now GI bleed on Xarelto. PAST SURGICAL HISTORY: Prostate surgery and lymph-node biopsy. SOCIAL HISTORY: Negative for tobacco and drug use. No excessive alcohol consumption. FAMILY HISTORY: Strongly positive for coronary artery disease. Negative for sudden cardiac an d arrhythmias. HOME MEDICATIONS: Losartan 100 mg daily, Procardia 60 XL daily, Protonix 40 mg daily, Xarelto 20 mg at bedtime, Flomax 0.4 mg b.i.d., Coreg 25 mg b.i.d., calcium carbonate 600 mg b.i.d., Lipitor 20 mg p.o. at bedtime, and aspirin 81 mg daily. ALLERGIES: HYDROCODONE and IBUPROFEN. PHYSICAL EXAMINATION: VITAL SIGNS: Temperature 99, blood pressure 137/63, respirations 16, oxygen saturation 92% and pulse 63. GENERAL: This is a well-appearing, well-nourished elderly male in no acute distress. He is alert an d oriented. HEENT: Speech is clear. His affect is appropriate. He is normocephalic, atraumatic. NECK: Supple without jugular venous distention. CARDIOVASCULAR: His heart rate is regularly regular, without murmur, rub, or gallop. LUNGS: Clear to auscultation bilaterally without wheezes, crackles, or rhonchi. EXTREMITIES: His extremities are warm and dry to touch without clubbing, cyanosis, or edema. ABDOMEN: Obese but nontender and without palpable masses. NEUROLOGIC: Grossly intact and nonfocal except for the residual weakness in the right lower extremit y. Gait was not assessed. DATABASE: Telemetry and EKGs were reviewed. The patient did experience CTI-dependent typical flutte r with elevated ventricular rates. Now currently maintaining sinus rhythm with controlled rates in t he 60 to 75 beats per minute range. LABORATORY DATA: Recent lab, hemoglobin 7.3, hematocrit 22.4, platelet count is 191,000. Chemistry: Sodium 139, potassium 3.9, BUN is 17, creatinine 1.55, calcium 8.2, magnesium 2.2. INR is 1.5. DEVICE INTERROGATION: The patient has a Reveal LINQ, date of implant is 09/11/2016. Battery status is good. Four tachy episodes, 124 episodes of atrial arrhythmias detected with an overall burden of 0.2%. Episodes began in 11/2016. ASSESSMENT: 1. Subacute GI bleed and anemia with a hemoglobin of 6.1. 2. Newly found atypical flutter with rapid ventricular response, now in sinus rhythm with controlled ventricular rate in the 60s-70s. 3. Remote history of stroke, cryptogenic prompting length placement in 2017. 4. Chronic kidney disease. 5. History of coronary artery disease. 6. History of gastrointestinal bleed on Eliquis, prompting initiation of Xarelto, but now the gastro intestinal bleed on Xarelto. PLAN: 1. Interrogate length which has already been done. 2. Plan for CTI ablation either as an inpatient on Saturday or Saturday as an outpatient. 3. Hold OAC for now. 4. Initiate Multaq 400 mg b.i.d. for antiarrhythmic therapy. Risks, benefits, and alternatives for management of atrial arrhythmias was discussed with Mr. Cooper at length. Risks of ablation include damage to the vein, hematoma, perforation of the heart, damage to the electrical conduction system in the heart and possible need for pacemaker. The patient verbal izes understanding and wished to proceed with the ablation either early next week as an inpatient or as an outpatient after discharge. Thank you for allowing us to participate in the care of the patient.
--- NOTE | 2017-08-03 01:40 | OP ---
DATE OF PROCEDURE: 08/02/2017 OPERATIVE PROCEDURE: Esophagogastroduodenoscopy. PREOPERATIVE DIAGNOSES: An 82-year-old -[place] male with anemia, history of black tarry sto ols over the last several days. The patient underwent EGD. POSTOPERATIVE DIAGNOSES: 1. Normal esophagus. 2. Multiple gastric polyps, nonbleeding. 3. Normal duodenum. The scope at the end of the examination basically unremarkable. PROCEDURE IN DETAIL: The patient was placed on his left lateral position and was given sedation by A nesthesia Department. A Pentax video gastroscope under direct vision was passed down the oropharynx, past the GE junction, into the stomach and subsequently into descending duodenum. The esophageal mu cosa appeared normal. The patient's distal ring is nonobstructing. The mucosa does not show patholo gy. Upon entering the stomach, the scope was retroflexed to visualize the fundus and cardia. No les ions in the fundus or cardia. The gastric body shows multiple small gastric polyps. They are not ble eding. The incisural angularis, gastric antrum, no pathology seen. The scope advanced into the duod enal bulb, descending duodenum, no pathology seen. The stomach was decompressed and the scope remove d. RECOMMENDATIONS: 1. The patient is on a clear liquid diet. 2. Colonoscopy in the next 24-48 hours after stopping Xarelto at least for 48 hours.
[2017-08-03] MEDS: Pantoprazole 80 MG in Sodium Chloride 0.9% 100 ML IVP SCH ×2 (05:20→16:14)
[2017-08-03] MEDS ORDERED: GoLYTELY 4,000 ml Bottle PO SCH (06:00)
[2017-08-03 06:04] LABS: #Lymphocytes 1.3 thou/uL (1.20-3.40); #Monocytes 0.9 thou/uL (0.11-0.59); #Neutrophils 7.1 thou/uL (1.40-6.50); %Eosinophils 0.5 % (0.0-10.0); %Lymphocytes 13.7 % (21.0-51.0); %Monocytes 9.3 % (0.0-10.0); %Neutrophils 76.5 % (42.0-75.0); Hemoglobin 7.8 g/dL (14.0-18.0); Mean Corpuscular HGB CONC 33.1 g/dL (32.0-36.0); Mean Corpuscular Hemoglobin 26.6 pg (27.0-31.0); Mean Corpuscular Volume 80.4 fl (80.0-94.0); Mean Platelet Volume 7.7 fL (7.4-10.4); Platelet Count 182 thou/uL (130-400); RBC Distribution Width 14.7 % (11.5-14.5); Red Blood Cell (RBC) Count 2.93 mill/uL (4.70-6.10); White Blood Cell (WBC) Count 9.3 thou/uL (4.8-10.8)
[2017-08-03] MEDS: Carvedilol 3.125 MG TAB PO SCH ×2 (06:25→21:07)
[2017-08-03 07:10] LABS: Anion Gap 11 mmol/L (10-20); BUN (Urea Nitrogen) 12 mg/dL (8.4-25.7); Calc. Creatinine Clearance 57 mL/min (70-130); Calcium 8.2 mg/dL (7.8-10.44); Carbon Dioxide 21 mmol/L (23-31); Chloride 111 mmol/L (98-107); Estimated GFR-MDRD 59; Glucose 88 mg/dL (83-110); Potassium 3.4 mmol/L (3.5-5.1); Sodium 140 mmol/L (136-145)
[2017-08-03] MEDS: Calcium Carbonate 600 MG TAB PO SCH ×2 (08:00→21:07)
[2017-08-03] MEDS: guaiFENesin ER 600 MG TAB PO SCH ×3 (08:00→21:08)
[2017-08-03] MEDS: Ferrous Sulfate 325 MG TAB PO SCH (08:00)
[2017-08-03] MEDS: Tamsulosin HCl 0.4 MG CAP PO SCH ×2 (08:12→21:07)
[2017-08-03] MEDS: Finasteride 5 MG TAB PO SCH (08:12)
[2017-08-03] MEDS: Dronedarone HCl 400 MG TAB PO SCH ×2 (08:12→16:14)
[2017-08-03] MEDS: Sodium Chloride 0.9% 1,000 ML IV SCH (08:12)
[2017-08-03] MEDS: cefTRIAXone\\ROCEPHIN 1 GM in Sodium Chloride 0.9% 100 ML IVPB SCH (10:56)
[2017-08-03] MEDS ORDERED: Ondansetron HCl/PF 4 MG/2 ML Vial IVP PRN (14:05)
[2017-08-03] MEDS ORDERED: Promethazine HCl 25 MG/ML VIAL SLOW IVP PRN (14:05)
[2017-08-03] MEDS ORDERED: Promethazine HCl 25 MG/ML VIAL IM PRN (14:05)
--- NOTE | 2017-08-03 14:22 | PDOC.PN ---
- Subjective Encounter Start Date: 08/03/17 Encounter Start Time: 09:00 Subjective: is npo for colonoscopy, finished golytely prep overnight -: no shad bleeding or chest pain - Objective Resuscitation Status: Resuscitation Status FULL:Full Resuscitation MAR Reviewed: Yes Vital Signs & Weight: Vital Signs (12 hours) Temp Pulse Resp BP Pulse Ox 08/03/17 07:05 99.1 F 72 17 136/64 98 08/03/17 04:00 99.5 F 72 12 131/81 95 Weight Weight 210 lb 1.6 oz I&O: 08/02/17 08/03/17 08/04/17 06:59 06:59 06:59 Intake Total 1738 5767 Output Total 450 375 Balance 1288 4462 Result Diagrams: 08/03/17 05:25 08/03/17 05:25 Phys Exam - Physical Examination HEENT: PERRLA, moist MMs Neck: no JVD, supple Respiratory: no wheezing, no rales Cardiovascular: RRR, no significant murmur Gastrointestinal: soft, non-tender, positive bowel sounds Musculoskeletal: no edema, pulses present Neurological: non-focal, moves all 4 limbs Psychiatric: normal affect, A&O x 3 Dx/Plan (1) Anemia due to acute blood loss Code(s): D62 - ACUTE POSTHEMORRHAGIC ANEMIA Status: Acute (2) Atrial flutter with rapid ventricular response Code(s): I48.92 - UNSPECIFIED ATRIAL FLUTTER Status: Acute (3) GI bleed Code(s): K92.2 - GASTROINTESTINAL HEMORRHAGE, UNSPECIFIED Status: Acute Qualifiers: GI bleed type/associated pathology: unspecified gastrointestinal hemorrhage type Qualified Code(s): K92.2 - Gastrointestinal hemorrhage, unspecified (4) BPH (benign prostatic hyperplasia) Code(s): N40.0 - BENIGN PROSTATIC HYPERPLASIA WITHOUT LOWER URINRY TRACT SYMP Status: Chronic (5) CKD (chronic kidney disease) stage 3, GFR 30-59 ml/min Code(s): N18.3 - CHRONIC KIDNEY DISEASE, STAGE 3 (MODERATE) Status: Chronic (6) Dyslipidemia Code(s): E78.5 - HYPERLIPIDEMIA, UNSPECIFIED Status: Chronic (7) HTN (hypertension) Code(s): I10 - ESSENTIAL (PRIMARY) HYPERTENSION Status: Chronic Qualifiers: Hypertension type: essential hypertension Qualified Code(s): I10 - Essential (primary) hypertension - Plan is going for colonoscopy today -: a.flutter ablation on saturday -: is on levaquin and ceftriaxone -: coreg, lipitor, multaq, oral iron, finasteride and flomax -: Hb around 7.8g, xarelto held * . Review of Systems - Medications/Allergies Allergies/Adverse Reactions: Allergies Allergy/AdvReac Type Severity Reaction Status Date / Time hydrocodone Allergy Verified 08/01/17 01:53 ibuprofen Allergy Verified 08/01/17 01:53 Medications: Current Medications Acetaminophen (Tylenol) 650 mg PO Q4H PRN PRN Reason: Headache/Fever or Pain Al Hydroxide/Mg Hydroxide (Maalox) 30 ml PO Q6H PRN PRN Reason: Heartburn or Indigestion Albuterol/Ipratropium (Duoneb) 3 ml NEB Q6H PRN PRN Reason: SOB &/or Wheezing Artificial Tears (Tears Naturale) 0 drop EA EYE PRN PRN PRN Reason: Dry Eyes Atorvastatin Calcium (Lipitor) 20 mg PO HS [facility] Last Admin: 08/02/17 22:28 Dose: 20 mg Calcium Carbonate (Caltrate) 600 mg PO BID [facility] Last Admin: 08/03/17 08:00 Dose: Not Given Carvedilol (Coreg) 3.125 mg PO BID [facility] Last Admin: 08/03/17 06:25 Dose: 3.125 mg Cholecalciferol (Vitamin D3) 1,000 units PO DAILY [facility] Last Admin: 08/03/17 08:00 Dose: Not Given Dronedarone (Multaq) 400 mg PO BID[facility] Last Admin: 08/03/17 08:12 Dose: 400 mg Ferrous Sulfate (Feosol) 325 mg PO DAILY [facility] Last Admin: 08/03/17 08:00 Dose: Not Given Finasteride (Proscar) 5 mg PO DAILY [facility] Last Admin: 08/03/17 08:12 Dose: 5 mg Guaifenesin (Robitussin Sf) 200 mg PO Q4H PRN PRN Reason: Cough Guaifenesin (Mucinex) 600 mg PO TID [facility] Last Admin: 08/03/17 08:00 Dose: Not Given Hydralazine HCl (Apresoline) 10 mg SLOW IVP Q4H PRN PRN Reason: Systolic BP > 180 Sodium Chloride (Normal Saline 0.9%) 1,000 mls @ 70 mls/hr IV .[id number] [facility] Last Admin: 08/03/17 08:12 Dose: 1,000 mls Pantoprazole Sodium 80 mg/ (Sodium Chloride) 100 mls @ 10 mls/hr IVP INF [facility] Last Admin: 08/03/17 05:20 Dose: 100 mls Ceftriaxone Sodium 1 gm/ (Sodium Chloride) 100 mls @ 200 mls/hr IVPB 1200 [facility] Last Admin: 08/03/17 10:56 Dose: 100 mls Levofloxacin 500 mg/ Device 100 mls @ 100 mls/hr IVPB 1300 [facility] Last Admin: 08/02/17 13:23 Dose: 100 mls Diltiazem HCl 125 mg/ Sodium (Chloride) 125 mls @ 10 mls/hr IVPB INF [facility]; 10 MG /HR PRN Reason: Protocol Last Admin: 08/03/17 05:20 Dose: 125 mls Loperamide HCl (Imodium) 2 mg PO PRN PRN PRN Reason: Diarrhea/Loose Stools Loratadine (Claritin) 10 mg PO DAILYPRN PRN PRN Reason: Sinus Symptoms Magnesium Hydroxide (Milk Of Magnesium) 30 ml PO DAILYPRN PRN PRN Reason: Constipation Mineral Oil/White Petrolatum (Eucerin Cream) 0 gm TOP BIDPRN PRN PRN Reason: Dry Skin Ondansetron HCl (Zofran Odt) 4 mg PO Q6H PRN PRN Reason: Nausea/Vomiting Ondansetron HCl (Zofran) 4 mg IVP Q6H PRN PRN Reason: Nausea/Vomiting Ondansetron HCl (Pacu-Zofran) 4 mg IVP ONE PRN PRN Reason: Nausea/Vomiting Stop: 08/03/17 17:07 Phenol (Chloraseptic [place] 180 Ml Bot) 0 ml PO PRN PRN PRN Reason: Sore Throat Promethazine HCl (Pacu-Phenergan) 6.25 mg SLOW IVP ONE PRN PRN Reason: Nausea/Vomiting Stop: 08/03/17 17:06 Promethazine HCl (Pacu-Phenergan) 6.25 mg IM ONE PRN PRN Reason: Nausea/Vomiting Stop: 08/03/17 17:06 Senna (Senokot) 2 tab PO HSPRN PRN PRN Reason: Constipation Sodium Chloride ([place] Nasal [place] 0.65%) 0 ml EA NARE QIDPRN PRN PRN Reason: Nasal Congestion Sodium Chloride (Flush - Normal Saline) 10 ml IVF Q12HR [facility] Last Admin: 08/03/17 08:00 Dose: Not Given Sodium Chloride (Flush - Normal Saline) 10 ml IVF PRN PRN PRN Reason: Saline Flush Tamsulosin HCl (Flomax) 0.4 mg PO BID [facility] Last Admin: 08/03/17 08:12 Dose: 0.4 mg Zolpidem Tartrate (Ambien) 5 mg PO HSPRN PRN PRN Reason: Insomnia
[2017-08-03] MEDS ORDERED: Lidocaine 1% PF 5 ML VIAL ONE (15:21)
[2017-08-03] MEDS ORDERED: PROPOFOL 200 MG/20 ML VIAL ONE (15:21)
--- NOTE | 2017-08-03 15:44 | PDOC.CTH ---
<Linda Acevedo - Last Filed: 08/03/17 15:41> Cardiology Progress Note - Subjective The pt seen and examined. No overnight events. No cardiac complaints. - Objective Vital Signs Temp Pulse Resp BP Pulse Ox 08/03/17 14:30 68 18 122/60 98 08/03/17 07:05 99.1 F 72 17 136/64 98 08/03/17 04:00 99.5 F 72 12 131/81 95 Weight 210 lb 1.6 oz 08/02/17 08/03/17 08/04/17 06:59 06:59 06:59 Intake Total 1738 4837 Output Total 450 375 Balance 1288 4462 - Physical Examination General/Neuro: alert & oriented x3 Neck: no JVD present Lungs: CTA Heart: RRR Abdomen: soft Extremities: other: (No edema) - Telemetry Telemetry Rhythm: SR 90s - Labs Result Diagrams: 08/03/17 05:25 08/03/17 05:25 Troponin/CKMB CK-MB (CK-2) 0.6 ng/mL (0-6.6) 08/01/17 15:46 Troponin I 0.021 ng/mL (< 0.028) 08/01/17 15:46 - Assessment/Plan 1. Aflutter with RVR - Remains in SR since 08/01/17 around 2300; on Multaq and diltiazem drip; Stop Diltiazem drip now. Holding OAC due to GI bleeding. cont. to monitor on tele and LINQ 2. Anemia due to GI bleed - Hgb is stable at this time; Clonoscopy was done today and result is pending 3. CAD - stable on BBlocker and Statin; not on ASA due to GI bleed 4. HTN - stable 5. CKD stage 3 - stable 6. Hyperlipidemia - on Statin MAR reviewed * Plan for CTI ablation by EP for recurrent Afib/aflutter Review of Systems - Review of Systems Constitutional: reports: no symptoms reported EENTM: reports: no symptoms reported Respiratory: reports: no symptoms reported Cardiac (ROS): reports: no symptoms reported ABD/GI: reports: no symptoms reported : reports: no symptoms reported Musculoskeletal: reports: no symptoms reported <[place] - Last Filed: 08/03/17 22:58> Cardiology Progress Note - Objective Vital Signs Temp Pulse Resp BP Pulse Ox 08/03/17 16:15 98.4 F 64 17 145/68 H 95 08/03/17 14:30 68 18 122/60 98 Weight 210 lb 1.6 oz 08/02/17 08/03/17 08/04/17 06:59 06:59 06:59 Intake Total 1738 4837 1260 Output Total 450 375 720 Balance 1288 4462 540 - Labs Result Diagrams: 08/03/17 05:25 08/03/17 05:25 Troponin/CKMB CK-MB (CK-2) 0.6 ng/mL (0-6.6) 08/01/17 15:46 Troponin I 0.021 ng/mL (< 0.028) 08/01/17 15:46 - Assessment/Plan Pt. was seen and eval. by me. I agree with the A/P by the [employer] C[employer]ER SERVICE ASSOCIATE. We have discussed the pt. and the plan
--- NOTE | 2017-08-03 16:13 | OP ---
DATE OF PROCEDURE: 08/03/2017 SURGEON: Jakub Beavers M.D. [employer]OR [employer] SURGEON: None. PROCEDURE: Colonoscopy with biopsies. INDICATIONS: 1. Anemia, gastrointestinal blood loss. 2. Melena. 3. Heme positive stool. 4. Negative EGD yesterday. MEDICATIONS: See anesthesia record. FINDINGS: After discussion of the risks, benefits and alternatives of the procedure, informed consen t was obtained and witnessed. Pre-endoscopic cardiopulmonary examination was satisfactory. Timeout was performed before sedation was achieved. Sedation was achieved with anesthesia assistance in the endoscopy unit. The patient was placed in the left lateral decubitus position. Digital rectal exam was performed which was unremarkable. A Pentax adult colonoscope was inserted into the anus and pass ed forward to the cecum in the usual fashion. The cecal base was identified by the appendiceal orifi ce as well as the ileocecal valve. The terminal ileum was not intubated. The colonoscope was then s lowly withdrawn in a gradual and circumferential manner with careful examination of the entire coloni c mucosa. The quality of the prep was good. In the very proximal ascending colon directly across fr om the ileocecal valve, there is a mass measuring approximately 4 cm in diameter, but with a broad ba se. The mass was quite friable with several areas of slow oozing of blood. There is a mucous cap on the mass. It has an appearance consistent with an advanced polyp or early malignancy. Because of i ts quite broad base in a relatively thin walled area of the colon, I elected not to try to remove thi s endoscopically. It is not endoscopically resectable. I did obtain biopsies from the mass for hist ology. I did not henry the area with tattoo ink due to its position directly across from the ileoceca l valve. The remainder of the colonic mucosa appeared normal. There is some diverticulosis in the s igmoid colon. The patient has very large internal hemorrhoids seen on retroflexion and forward views . The colonoscope was completely withdrawn and the patient allowed to recover. The patient tolerate d the procedure well. There were no immediate post-procedure complications. IMPRESSION: 1. 4 cm mass with broad base, mucous cap, and slow oozing of blood. This is located in the ascendin g colon directly across from the ileocecal valve. Not endoscopically resectable. Biopsied. 2. Sigmoid diverticulosis. 3. Large internal hemorrhoids. RECOMMENDATIONS: 1. Continue to hold anticoagulation. 2. Follow up pathology. 3. Clear liquid diet. 4. Surgical consultation.
[2017-08-03] MEDS: Atorvastatin Calcium 20 MG TAB PO SCH (21:07)
[2017-08-04] MEDS: Sodium Chloride 0.9% 1,000 ML IV SCH (02:15)
[2017-08-04 08:00] LABS: #Eosinphils 0.1 thou/uL (0.0-0.7); #Lymphocytes 1.1 thou/uL (1.20-3.40); #Monocytes 0.7 thou/uL (0.11-0.59); #Neutrophils 5.3 thou/uL (1.40-6.50); %Basophils 0.3 % (0.0-1.0); %Lymphocytes 14.5 % (21.0-51.0); %Monocytes 9.8 % (0.0-10.0); %Neutrophils 73.3 % (42.0-75.0); Mean Corpuscular HGB CONC 33.2 g/dL (32.0-36.0); Mean Corpuscular Volume 81.4 fl (80.0-94.0); Mean Platelet Volume 7.8 fL (7.4-10.4); Platelet Count 187 thou/uL (130-400); RBC Distribution Width 14.8 % (11.5-14.5); Red Blood Cell (RBC) Count 2.95 mill/uL (4.70-6.10); White Blood Cell (WBC) Count 7.3 thou/uL (4.8-10.8)
[2017-08-04 08:20] LABS: Anion Gap 8 mmol/L (10-20); BUN (Urea Nitrogen) 6 mg/dL (8.4-25.7); Calc. Creatinine Clearance 74 mL/min (70-130); Carbon Dioxide 22 mmol/L (23-31); Chloride 112 mmol/L (98-107); Estimated GFR-MDRD 80; Glucose 92 mg/dL (83-110); Potassium 3.3 mmol/L (3.5-5.1); Sodium 139 mmol/L (136-145)
[2017-08-04] MEDS: Calcium Carbonate 600 MG TAB PO SCH ×2 (08:42→20:36)
[2017-08-04] MEDS: Finasteride 5 MG TAB PO SCH (08:42)
[2017-08-04] MEDS: Dronedarone HCl 400 MG TAB PO SCH ×2 (08:43→18:11)
[2017-08-04] MEDS: guaiFENesin ER 600 MG TAB PO SCH ×3 (08:43→20:36)
[2017-08-04] MEDS: Carvedilol 3.125 MG TAB PO SCH ×2 (08:43→20:36)
[2017-08-04] MEDS: Ferrous Sulfate 325 MG TAB PO SCH (08:43)
[2017-08-04] MEDS: Tamsulosin HCl 0.4 MG CAP PO SCH ×2 (08:43→20:36)
--- NOTE | 2017-08-04 11:11 | PDOC.PN ---
- Subjective Encounter Start Date: 08/04/17 Encounter Start Time: 09:50 Subjective: no sob, feels better -: no shad bleeding now -: tolerating oral diet - Objective Resuscitation Status: Resuscitation Status FULL:Full Resuscitation MAR Reviewed: Yes Vital Signs & Weight: Vital Signs (12 hours) Temp Pulse Resp BP Pulse Ox 08/04/17 08:37 99.3 F 85 19 142/67 H 98 08/04/17 05:50 97 08/04/17 04:00 98.6 F 84 14 158/72 H Weight Weight 212 lb 3.2 oz I&O: 08/03/17 08/04/17 08/05/17 06:59 06:59 06:59 Intake Total 4837 2813 Output Total 375 1320 Balance 4462 1493 Result Diagrams: 08/04/17 07:43 08/04/17 07:43 Phys Exam - Physical Examination HEENT: PERRLA, moist MMs Neck: no JVD, supple Respiratory: no rales, no rhonchi Cardiovascular: no significant murmur, irregular Gastrointestinal: soft, non-tender, no distention, positive bowel sounds Musculoskeletal: pulses present, edema present Neurological: non-focal, moves all 4 limbs Psychiatric: normal affect, A&O x 3 Dx/Plan (1) Anemia due to acute blood loss Code(s): D62 - ACUTE POSTHEMORRHAGIC ANEMIA Status: Acute (2) Atrial flutter with rapid ventricular response Code(s): I48.92 - UNSPECIFIED ATRIAL FLUTTER Status: Acute (3) GI bleed Code(s): K92.2 - GASTROINTESTINAL HEMORRHAGE, UNSPECIFIED Status: Acute Qualifiers: GI bleed type/associated pathology: unspecified gastrointestinal hemorrhage type Qualified Code(s): K92.2 - Gastrointestinal hemorrhage, unspecified (4) BPH (benign prostatic hyperplasia) Code(s): N40.0 - BENIGN PROSTATIC HYPERPLASIA WITHOUT LOWER URINRY TRACT SYMP Status: Chronic Qualifiers: Lower urinary tract symptom presence: symptoms absent Qualified Code(s): N40.0 - Benign prostatic hyperplasia without lower urinary tract symptoms (5) CKD (chronic kidney disease) stage 3, GFR 30-59 ml/min Code(s): N18.3 - CHRONIC KIDNEY DISEASE, STAGE 3 (MODERATE) Status: Chronic (6) Dyslipidemia Code(s): E78.5 - HYPERLIPIDEMIA, UNSPECIFIED Status: Chronic (7) HTN (hypertension) Code(s): I10 - ESSENTIAL (PRIMARY) HYPERTENSION Status: Chronic Qualifiers: Hypertension type: essential hypertension Qualified Code(s): I10 - Essential (primary) hypertension (8) Colonic mass Code(s): K63.9 - DISEASE OF INTESTINE, UNSPECIFIED Status: Acute Comment: 4cm mass in asc colon - Plan h/h is stable -: dc iv fluids, is tolerating oral diet -: await biopsy results/surgical consultation -: needs ablation for a.flutter ?saturday or wait until his GI issue is resolved -: is off anticoagulation, on multaq, coreg, protonix, iron, flomax, finasteri * . is on levaquin, off ceftiaxone, mcconnell cultures are -ve, had fever on arrival with suspected sepsis. Review of Systems - Medications/Allergies Allergies/Adverse Reactions: Allergies Allergy/AdvReac Type Severity Reaction Status Date / Time hydrocodone Allergy Verified 08/01/17 01:53 ibuprofen Allergy Verified 08/01/17 01:53 Medications: Current Medications Acetaminophen (Tylenol) 650 mg PO Q4H PRN PRN Reason: Headache/Fever or Pain Al Hydroxide/Mg Hydroxide (Maalox) 30 ml PO Q6H PRN PRN Reason: Heartburn or Indigestion Albuterol/Ipratropium (Duoneb) 3 ml NEB Q6H PRN PRN Reason: SOB &/or Wheezing Artificial Tears (Tears Naturale) 0 drop EA EYE PRN PRN PRN Reason: Dry Eyes Atorvastatin Calcium (Lipitor) 20 mg PO [facility] Last Admin: 08/03/17 21:07 Dose: 20 mg Calcium Carbonate (Caltrate) 600 mg PO BID [facility] Last Admin: 08/04/17 08:42 Dose: 600 mg Carvedilol (Coreg) 3.125 mg PO BID [facility] Last Admin: 08/04/17 08:43 Dose: 3.125 mg Cholecalciferol (Vitamin D3) 1,000 units PO DAILY [facility] Last Admin: 08/04/17 08:43 Dose: 1,000 units Dronedarone (Multaq) 400 mg PO BID[facility] Last Admin: 08/04/17 08:43 Dose: 400 mg Ferrous Sulfate (Feosol) 325 mg PO DAILY [facility] Last Admin: 08/04/17 08:43 Dose: 325 mg Finasteride (Proscar) 5 mg PO DAILY [facility] Last Admin: 08/04/17 08:42 Dose: 5 mg Guaifenesin (Robitussin Sf) 200 mg PO Q4H PRN PRN Reason: Cough Guaifenesin (Mucinex) 600 mg PO TID [facility] Last Admin: 08/04/17 08:43 Dose: 600 mg Hydralazine HCl (Apresoline) 10 mg SLOW IVP Q4H PRN PRN Reason: Systolic BP > 180 Levofloxacin (Levaquin) 500 mg PO 1400 ULISES Loperamide HCl (Imodium) 2 mg PO PRN PRN PRN Reason: Diarrhea/Loose Stools Loratadine (Claritin) 10 mg PO DAILYPRN PRN PRN Reason: Sinus Symptoms Magnesium Hydroxide (Milk Of Magnesium) 30 ml PO DAILYPRN PRN PRN Reason: Constipation Mineral Oil/White Petrolatum (Eucerin Cream) 0 gm TOP BIDPRN PRN PRN Reason: Dry Skin Ondansetron HCl (Zofran Odt) 4 mg PO Q6H PRN PRN Reason: Nausea/Vomiting Ondansetron HCl (Zofran) 4 mg IVP Q6H PRN PRN Reason: Nausea/Vomiting Pantoprazole Sodium (Protonix) 40 mg PO DAILY [facility] Last Admin: 08/04/17 08:43 Dose: 40 mg Phenol (Chloraseptic [place] 180 Ml Bot) 0 ml PO PRN PRN PRN Reason: Sore Throat Potassium Chloride (K-Dur) 40 meq PO ONE [facility] Senna (Senokot) 2 tab PO HSPRN PRN PRN Reason: Constipation Sodium Chloride ([place] Nasal [place] 0.65%) 0 ml EA NARE QIDPRN PRN PRN Reason: Nasal Congestion Sodium Chloride (Flush - Normal Saline) 10 ml IVF Q12HR [facility] Last Admin: 08/04/17 08:43 Dose: Not Given Sodium Chloride (Flush - Normal Saline) 10 ml IVF PRN PRN PRN Reason: Saline Flush Tamsulosin HCl (Flomax) 0.4 mg PO BID [facility] Last Admin: 08/04/17 08:43 Dose: 0.4 mg Zolpidem Tartrate (Ambien) 5 mg PO HSPRN PRN PRN Reason: Insomnia
[2017-08-04] MEDS ORDERED: Potassium Chloride 20 MEQ TAB PO SCH (11:15)
--- NOTE | 2017-08-04 12:41 | PDOC.CTH ---
Cardiology Progress Note - Objective Vital Signs Temp Pulse Resp BP Pulse Ox 08/04/17 12:24 97.9 F 88 18 155/69 H 98 08/04/17 08:37 99.3 F 85 19 142/67 H 98 08/04/17 05:50 97 08/04/17 04:00 98.6 F 84 14 158/72 H Weight 212 lb 3.2 oz 08/03/17 08/04/17 08/05/17 06:59 06:59 06:59 Intake Total 4837 2813 Output Total 375 1320 Balance 4462 1493 - Physical Examination General/Neuro: alert & oriented x3 Neck: no JVD present Lungs: CTA Heart: RRR - Labs Result Diagrams: 08/04/17 07:43 08/04/17 07:43 Troponin/CKMB CK-MB (CK-2) 0.6 ng/mL (0-6.6) 08/01/17 15:46 Troponin I 0.021 ng/mL (< 0.028) 08/01/17 15:46 - Assessment/Plan 1. Aflutter with RVR - Remains in SR since 08/01/17 around 2300; on Multaq and diltiazem drip; Stop Diltiazem drip now. Holding OAC due to GI bleeding. cont. to monitor on tele and LINQ 2. Anemia due to GI bleed - Hgb is stable at this time; Colonoscopy was done yesterday. Colon mass found and is felt to be the source of bleeding. Plan for surgery tomorrow with Dr. Espinoza. Plan for EP ablation a few days to 1-2 weeks later. 3. CAD - stable on BBlocker and Statin; not on ASA due to GI bleed 4. HTN - stable 5. CKD stage 3 - stable 6. Hyperlipidemia - on Statin MAR reviewed * Plan for CTI ablation by EP for recurrent Afib/aflutter after colon mass resection.
--- NOTE | 2017-08-04 13:08 | CON ---
DATE OF CONSULTATION: 08/04/2017 CHIEF COMPLAINT: Cecal mass. HISTORY OF PRESENT ILLNESS: This is an 82-year-old male, who presents in atrial flutter with a lower GI bleed. He was on Xarelto at home for chronic atrial fibrillation/atrial flutter. Colonoscopy ye sterday by Dr. Jakub Beavers reveals a large polyp versus mass in the cecum just across from the ileocec al valve with stigmata of recent bleeding. His bleeding has pretty much stopped and he is not unstab le in terms of a GI bleed. I have been consulted for resection of this area. He is going to need lo ng-term anticoagulation after he has ablation of his atrial flutter. His flutter seems to be rate co ntrolled now. PAST MEDICAL HISTORY: Includes previous CVA, prostate cancer, coronary artery disease, chronic antic oagulation, GERD, hypertension, and gout. PAST SURGICAL HISTORY: Prostatectomy. SOCIAL HISTORY: , drinks occasionally. No smoking, alcohol or drugs. ALLERGIES: IBUPROFEN and HYDROCODONE. REVIEW OF SYSTEMS: Ten-system review of systems is otherwise negative unless described above. FAMILY HISTORY: Noncontributory to GI malignancy or anesthetic-related complication. PHYSICAL EXAMINATION: VITAL SIGNS: Blood pressure 155/69, pulse 88, respirations 18, temperature 97.9. HEENT: Sclerae are anicteric. Oropharynx is clear. NECK: No lymphadenopathy. CHEST: Clear. HEART: Regular rate. ABDOMEN: Soft, nontender, and nondistended. A well-healed low midline incision without hernia. EXTREMITIES: No ischemia or edema to extremities. LABORATORY AND X-RAY FINDINGS: Hemoglobin is 8, white cell count is 7.3, platelet count is 187. Sod ium 139, potassium 3.3, creatinine 1.08. ASSESSMENT: 1. Cecal mass. 2. Coronary artery disease. 3. Atrial flutter, needs ablation and chronic anticoagulation. PLAN: My plan would be laparoscopic right colectomy tomorrow. He has already had the prep. He can stay on clear liquids. We will add a couple of antibiotics by mouth today, that way within the first few postoperative days, he could be ablated and have anticoagulation started.
[2017-08-04] MEDS: Erythromycin Base 250 MG TAB PO SCH ×3 (14:14→18:11)
[2017-08-04] MEDS: metroNIDAZOLE 500 MG TAB PO SCH ×3 (14:15→20:36)
--- NOTE | 2017-08-04 14:32 | PRG ---
DATE OF SERVICE: 08/04/2017. SUBJECTIVE: Mr. Cooper is feeling well, no abdominal pain, no overt bleeding. Hemoglobin is stable today. He saw Dr. Espinoza who is planning right hemicolectomy tomorrow. PHYSICAL EXAMINATION: VITAL SIGNS: Temperature 97.9, pulse 88, blood pressure 155/69, 98% oxygen saturation on room air. GENERAL: No acute distress. HEART: Regular rate and rhythm. LUNGS: Clear to auscultation bilaterally. ABDOMEN: Soft, nontender to palpation. EXTREMITIES: No peripheral edema. LABORATORY STUDIES: Hemoglobin stable at 8.0, WBC 7.3, platelets 187. Sodium 139, potassium 3.3, BU N 6, creatinine down to 1.08. ASSESSMENT AND PLAN: Small mass in the ascending colon across from the ileocecal valve. Biopsies ar e still pending. This likely represents advanced polyp versus early malignancy. It was not endoscop ically resectable. I appreciate Dr. Gurrola's assistance. Right hemicolectomy is planned for tomorro w. No evidence of overt bleeding since colonoscopy yesterday. Please call back anytime with questions or concerns.
[2017-08-04] MEDS ORDERED: metroNIDAZOLE 500 MG TAB PO SCH (18:00)
[2017-08-04] MEDS: Atorvastatin Calcium 20 MG TAB PO SCH (20:36)
[2017-08-05 05:39] LABS: #Eosinphils 0.2 thou/uL (0.0-0.7); #Lymphocytes 0.9 thou/uL (1.20-3.40); #Monocytes 0.7 thou/uL (0.11-0.59); %Basophils 0.3 % (0.0-1.0); %Monocytes 12.6 % (0.0-10.0); Hemoglobin 8.2 g/dL (14.0-18.0); Mean Corpuscular HGB CONC 33.4 g/dL (32.0-36.0); Mean Platelet Volume 7.8 fL (7.4-10.4); Platelet Count 203 thou/uL (130-400); RBC Distribution Width 14.9 % (11.5-14.5); Red Blood Cell (RBC) Count 3.05 mill/uL (4.70-6.10); White Blood Cell (WBC) Count 5.9 thou/uL (4.8-10.8)
[2017-08-05 06:00] LABS: Anion Gap 8 mmol/L (10-20); BUN (Urea Nitrogen) 5 mg/dL (8.4-25.7); Calc. Creatinine Clearance 74 mL/min (70-130); Calcium 8.2 mg/dL (7.8-10.44); Carbon Dioxide 23 mmol/L (23-31); Chloride 111 mmol/L (98-107); Estimated GFR-MDRD 79; Glucose 94 mg/dL (83-110); Potassium 3.6 mmol/L (3.5-5.1); Sodium 138 mmol/L (136-145)
[2017-08-05] MEDS: Dronedarone HCl 400 MG TAB PO SCH (08:03)
[2017-08-05] MEDS: Carvedilol 3.125 MG TAB PO SCH ×2 (08:04→21:11)
[2017-08-05] MEDS: Calcium Carbonate 600 MG TAB PO SCH (08:05)
[2017-08-05] MEDS: Ferrous Sulfate 325 MG TAB PO SCH (08:05)
[2017-08-05] MEDS: guaiFENesin ER 600 MG TAB PO SCH (08:05)
[2017-08-05] MEDS: Tamsulosin HCl 0.4 MG CAP PO SCH ×2 (08:06→21:11)
[2017-08-05] MEDS: Finasteride 5 MG TAB PO SCH (08:06)
[2017-08-05] MEDS ORDERED: Dexamethasone 4 mg/ml Vial ONE (10:26)
[2017-08-05] MEDS ORDERED: Midazolam HCl 2 mg/2 ml Vial ONE (10:26)
[2017-08-05] MEDS ORDERED: Fentanyl 100 MCG/2 ML VIAL ONE ×2 (10:26→13:44)
[2017-08-05] MEDS ORDERED: Fentanyl 250 MCG/5 ML VIAL ONE (10:55)
[2017-08-05] MEDS ORDERED: PROPOFOL 200 MG/20 ML VIAL ONE (11:04)
[2017-08-05] MEDS ORDERED: Lidocaine 1% PF 5 ML VIAL ONE (11:04)
[2017-08-05] MEDS ORDERED: Glycopyrrolate 0.2 MG/ML 5 ML SYRINGE ONE (11:04)
[2017-08-05] MEDS ORDERED: PHENYLEPHRINE-NS 100 MCG/ML 10 ML SYRINGE ONE (11:04)
[2017-08-05] MEDS ORDERED: Bupivacaine HCl 0.5%/Epinephrine 1:200,000/PF 30 ml Vial ONE (12:32)
[2017-08-05] MEDS ORDERED: Promethazine HCl 25 MG/ML VIAL IM PRN ×2 (13:25→13:46)
[2017-08-05] MEDS ORDERED: Promethazine HCl 25 MG/ML VIAL SLOW IVP PRN (13:25)
[2017-08-05] MEDS ORDERED: Ondansetron HCl/PF 4 MG/2 ML Vial IVP PRN ×2 (13:25→13:46)
[2017-08-05] MEDS ORDERED: Fentanyl 100 MCG/2 ML VIAL SLOW IVP PRN ×2 (13:46)
--- NOTE | 2017-08-05 14:12 | PDOC.PN ---
- Subjective Encounter Start Date: 08/05/17 Encounter Start Time: 08:15 -: old records requested/rev Patient seen and examined for anemia. No new complaints. No overnight events - Objective Resuscitation Status: Resuscitation Status FULL:Full Resuscitation MAR Reviewed: Yes Vital Signs & Weight: Vital Signs (12 hours) Temp Pulse Resp BP Pulse Ox 08/05/17 07:22 98.5 F 68 18 163/78 H 99 08/05/17 04:00 98.8 F 68 18 154/70 H 95 Weight Weight 212 lb 3.2 oz I&O: 08/04/17 08/05/17 08/06/17 06:59 06:59 06:59 Intake Total 2813 1360 Output Total 1320 300 Balance 1493 1060 Result Diagrams: 08/05/17 05:10 08/05/17 05:10 Additional Labs: Accuchecks 08/05/17 08/05/17 13:41 06:14 POC Glucose 121 H 92 EKG Reviewed by me: Yes Phys Exam - Physical Examination Constitutional: NAD HEENT: PERRLA, moist MMs, sclera anicteric Neck: no JVD, supple Respiratory: no wheezing, no rales, no rhonchi Cardiovascular: RRR, no significant murmur, no rub Gastrointestinal: soft, non-tender, no distention, positive bowel sounds Musculoskeletal: no edema, pulses present Neurological: non-focal, normal sensation, moves all 4 limbs Psychiatric: normal affect, A&O x 3 Skin: no rash, normal turgor Dx/Plan (1) Acute bronchitis Code(s): J20.9 - ACUTE BRONCHITIS, UNSPECIFIED Status: Resolved Qualifiers: Bronchitis organism: unspecified organism Qualified Code(s): J20.9 - Acute bronchitis, unspecified (2) Anemia due to acute blood loss Code(s): D62 - ACUTE POSTHEMORRHAGIC ANEMIA Status: Acute (3) Atrial flutter with rapid ventricular response Code(s): I48.92 - UNSPECIFIED ATRIAL FLUTTER Status: Acute (4) GI bleed Code(s): K92.2 - GASTROINTESTINAL HEMORRHAGE, UNSPECIFIED Status: Acute Qualifiers: GI bleed type/associated pathology: unspecified gastrointestinal hemorrhage type Qualified Code(s): K92.2 - Gastrointestinal hemorrhage, unspecified (5) Sepsis Code(s): A41.9 - SEPSIS, UNSPECIFIED ORGANISM Status: Resolved (6) BPH (benign prostatic hyperplasia) Code(s): N40.0 - BENIGN PROSTATIC HYPERPLASIA WITHOUT LOWER URINRY TRACT SYMP Status: Chronic Qualifiers: Lower urinary tract symptom presence: symptoms absent Qualified Code(s): N40.0 - Benign prostatic hyperplasia without lower urinary tract symptoms (7) CKD (chronic kidney disease) stage 3, GFR 30-59 ml/min Code(s): N18.3 - CHRONIC KIDNEY DISEASE, STAGE 3 (MODERATE) Status: Chronic (8) Chronic anticoagulation Code(s): Z79.01 - FIXED INCOME ANALYST (CURRENT) USE OF ANTICOAGULANTS Status: Chronic (9) Dyslipidemia Code(s): E78.5 - HYPERLIPIDEMIA, UNSPECIFIED Status: Chronic (10) H/O: CVA (cerebrovascular accident) Code(s): Z86.73 - PRSNL HX OF TIA (TIA), AND CEREB INFRC W/O RESID DEFICITS Status: Chronic (11) HTN (hypertension) Code(s): I10 - ESSENTIAL (PRIMARY) HYPERTENSION Status: Chronic Qualifiers: Hypertension type: essential hypertension Qualified Code(s): I10 - Essential (primary) hypertension (12) Acute kidney failure Status: Resolved (13) Colonic mass Code(s): K63.9 - DISEASE OF INTESTINE, UNSPECIFIED Status: Acute Comment: 4cm mass in asc colon - Plan cont current plan of care, continue antibiotics, respiratory therapy * pt is planned for laparoscopic right hemicolectomy for cecal mass * after recovery from surgery, he will need ablation for atrial flutter * medication reviewed as below * symptomatic treatment. Review of Systems - Review of Systems Eyes: negative: Pain, Vision Change, Conjunctivae Inflammation, Eyelid Inflammation, Redness, Other ENT: negative: Ear Pain, Ear Discharge, Nose Pain, Nose Discharge, Nose Congestion, Mouth Pain, Mouth Swelling, Throat Pain, Throat Swelling, Other Respiratory: negative: Cough, Dry, Shortness of Breath, Hemoptysis, SOB with Excertion, Pleuritic Pain, Sputum, Wheezing Cardiovascular: negative: chest pain, palpitations, orthopnea, paroxysmal nocturnal dyspnea, edema, light headedness, other Gastrointestinal: negative: Nausea, Vomiting, Abdominal Pain, Diarrhea, Constipation, Melena, Hematochezia, Other Genitourinary: negative: Dysuria, Frequency, Incontinence, Hematuria, Retention , Other Musculoskeletal: negative: Neck Pain, Shoulder Pain, Arm Pain, Back Pain, Hand Pain, Leg Pain, Foot Pain, Other Skin: negative: Rash, Lesions, [place], Bruising, Other - Medications/Allergies Allergies/Adverse Reactions: Allergies Allergy/AdvReac Type Severity Reaction Status Date / Time hydrocodone Allergy Verified 08/01/17 01:53 ibuprofen Allergy Verified 08/01/17 01:53 Medications: Current Medications Albuterol/Ipratropium (Duoneb) 3 ml NEB Q4H PRN PRN Reason: Wheezing Artificial Tears (Tears Naturale) 0 drop EA EYE PRN PRN PRN Reason: Dry Eyes Atorvastatin Calcium (Lipitor) 20 mg PO HS [facility] Last Admin: 08/04/17 20:36 Dose: 20 mg Carvedilol (Coreg) 3.125 mg PO BID [facility] Last Admin: 08/05/17 08:04 Dose: 3.125 mg Enoxaparin Sodium (Lovenox) 40 mg SC 2100 [facility] Fentanyl (Sublimaze) 25 mcg SLOW IVP Q2H PRN PRN Reason: Moderate Pain (4-6) Fentanyl (Sublimaze) 50 mcg SLOW IVP Q2H PRN PRN Reason: Severe Pain (7-10) Finasteride (Proscar) 5 mg PO DAILY [facility] Last Admin: 08/05/17 08:06 Dose: 5 mg Hydralazine HCl (Apresoline) 10 mg SLOW IVP Q4H PRN PRN Reason: SBP > 170 or DBP > 100 Acetaminophen 1,000 mg/ Device 100 mls @ 400 mls/hr IVPB Q6HR [facility] Stop: 08/06/17 12:14 Cefoxitin Sodium 2 gm/ Sodium (Chloride) 100 mls @ 100 mls/hr IVPB Q8HR [facility] Stop: 08/05/17 22:59 Sodium Chloride (Normal Saline 0.9%) 1,000 mls @ 70 mls/hr IV .[id number] [facility] Ondansetron HCl (Zofran Odt) 4 mg PO Q6H PRN PRN Reason: Nausea/Vomiting Ondansetron HCl (Pacu-Zofran) 4 mg IVP ONE PRN PRN Reason: Nausea/Vomiting Stop: 08/05/17 16:25 Ondansetron HCl (Zofran) 4 mg IVP Q6H PRN PRN Reason: Nausea/Vomiting Pantoprazole Sodium (Protonix) 40 mg PO DAILY [facility] Last Admin: 08/05/17 08:05 Dose: 40 mg Promethazine HCl (Pacu-Phenergan) 6.25 mg SLOW IVP ONE PRN PRN Reason: Nausea/Vomiting Stop: 08/05/17 16:25 Promethazine HCl (Pacu-Phenergan) 6.25 mg IM ONE PRN PRN Reason: Nausea/Vomiting Stop: 08/05/17 16:25 Promethazine HCl (Phenergan) 12.5 mg IM Q4H PRN PRN Reason: Nausea/Vomiting Sodium Chloride ([place] Nasal [place] 0.65%) 0 ml EA NARE QIDPRN PRN PRN Reason: Nasal Congestion Sodium Chloride (Flush - Normal Saline) 10 ml IVF Q12HR [facility] Last Admin: 08/05/17 08:06 Dose: 10 ml Sodium Chloride (Flush - Normal Saline) 10 ml IVF PRN PRN PRN Reason: Saline Flush Tamsulosin HCl (Flomax) 0.4 mg PO BID [facility] Last Admin: 08/05/17 08:06 Dose: 0.4 mg Zolpidem Tartrate (Ambien) 5 mg PO HSPRN PRN PRN Reason: Insomnia
[2017-08-05] MEDS: cefOXitin 2 GM in Sodium Chloride 0.9% 100 ML IVPB SCH ×2 (14:44→21:14)
[2017-08-05] MEDS: Sodium Chloride 0.9% 1,000 ML IV SCH (14:44)
[2017-08-05] MEDS: Acetaminophen 1,000 MG in Premix Bag 1 BAG IVPB SCH (17:08)
--- NOTE | 2017-08-05 18:36 | EKG ---
Test Reason : STAT Blood Pressure : / mmHG Vent. Rate : 127 BPM Atrial Rate : 286 BPM P-R Int : 000 ms QRS Dur : 104 ms QT Int : 296 ms P-R-T Axes : 000 038 268 degrees QTc Int : 430 ms Poor data quality, interpretation may be adversely affected Atrial flutter with variable A-V block Minimal voltage criteria for LVH, may be normal variant Nonspecific ST and T wave abnormality Abnormal ECG When compared with ECG of 11-MAY-2016 12:38, Atrial flutter has replaced Sinus rhythm Vent. rate has increased BY [address] now depressed in Lateral leads Nonspecific T wave abnormality now evident in Lateral leads Confirmed by DONALD MCCORMACK (2) on 08/05/2017 6:36:31 PM Referred By: Ronit Confirmed By:DONALD MCCORMACK
--- NOTE | 2017-08-05 19:14 | PRG ---
DATE OF SERVICE: 08/05/2017 SUBJECTIVE: Mr. Cooper seems to be doing well. He is awaiting a colon surgery. OBJECTIVE DATA: VITAL SIGNS: Blood pressure is 163/78, heart rate 68, respirations 18, temperature 98.5 degrees Fahr enheit. GENERAL: Alert and oriented man, in no apparent distress. NECK: Supple. Jugular veins not distended. CHEST: Coarse without crackles. CARDIOVASCULAR: Heart sounds are regular to rate and rhythm. No murmur or gallop. ABDOMEN: Benign. Bowel sounds positive. EXTREMITIES: Lower extremities without edema, clubbing or cyanosis. DATABASE: White count 5.9, hemoglobin 8.2, platelet count is 203. Sodium is 138, potassium is 3.6, BUN is 5, and creatinine is 1.09. ASSESSMENT AND PLAN: Mr. Cooper is a pleasant 82-year-old man with history of newly found atrial flu tter who spontaneously well cardioverted. He was also found to be anemic with gastrointestinal bleed even with a history of stroke is noted. Anticoagulation on hold. He was started on dronedarone lam t was eventually discontinued. Currently maintaining sinus rhythm, nevertheless. Colonoscopy found a colon mass and resection is planned today. At this point, I agree with the current management. Co ntinue conservative treatment of atrial flutter if recurs. Consideration for resuming Multaq versus amiodarone could be made. He will be on anticoagulation once okay from Surgery/GI standpoint. Likel y outpatient ablation procedure in the future.
[2017-08-05] MEDS: Enoxaparin Sodium 40 MG/0.4 ML SYRINGE SC SCH (21:11)
[2017-08-05] MEDS: Atorvastatin Calcium 20 MG TAB PO SCH (21:11)
[2017-08-06] MEDS: Acetaminophen 1,000 MG in Premix Bag 1 BAG IVPB SCH ×3 (00:14→11:35)
[2017-08-06] MEDS: hydrALAZINE 20 MG/ML VIAL SLOW IVP PRN ×2 (00:14→18:26)
[2017-08-06 05:21] LABS: #Lymphocytes 0.6 thou/uL (1.20-3.40); #Monocytes 0.4 thou/uL (0.11-0.59); #Neutrophils 7.9 thou/uL (1.40-6.50); %Eosinophils 0.1 % (0.0-10.0); %Lymphocytes 6.3 % (21.0-51.0); %Monocytes 4.5 % (0.0-10.0); Hemoglobin 8.4 g/dL (14.0-18.0); Mean Corpuscular HGB CONC 32.6 g/dL (32.0-36.0); Mean Corpuscular Hemoglobin 26.2 pg (27.0-31.0); Mean Corpuscular Volume 80.2 fl (80.0-94.0); Mean Platelet Volume 7.9 fL (7.4-10.4); Platelet Count 209 thou/uL (130-400); White Blood Cell (WBC) Count 8.9 thou/uL (4.8-10.8)
[2017-08-06] MEDS: Sodium Chloride 0.9% 1,000 ML IV SCH (05:26)
[2017-08-06 05:33] LABS: Anion Gap 8 mmol/L (10-20); BUN (Urea Nitrogen) 9 mg/dL (8.4-25.7); Calc. Creatinine Clearance 85 mL/min (70-130); Calcium 7.6 mg/dL (7.8-10.44); Carbon Dioxide 22 mmol/L (23-31); Chloride 111 mmol/L (98-107); Estimated GFR-MDRD Greater than 90; Glucose 126 mg/dL (83-110); Potassium 3.4 mmol/L (3.5-5.1); Sodium 138 mmol/L (136-145)
[2017-08-06] MEDS: Carvedilol 3.125 MG TAB PO SCH ×2 (09:14→21:11)
[2017-08-06] MEDS: Finasteride 5 MG TAB PO SCH (09:14)
[2017-08-06] MEDS: Tamsulosin HCl 0.4 MG CAP PO SCH ×2 (09:15→21:11)
--- NOTE | 2017-08-06 10:35 | PDOC.PN ---
- Subjective Encounter Start Date: 08/06/17 Encounter Start Time: 07:30 Patient seen and examined for colon mass. No new complaints. No overnight events - Objective Resuscitation Status: Resuscitation Status FULL:Full Resuscitation MAR Reviewed: Yes Vital Signs & Weight: Vital Signs (12 hours) Temp Pulse Resp BP Pulse Ox 08/06/17 04:00 98.7 F 79 18 166/75 H 96 08/06/17 01:20 169/79 H 08/06/17 00:14 70 08/06/17 00:09 96 08/05/17 23:22 70 16 172/90 H 96 Weight Weight 212 lb 3.2 oz I&O: 08/05/17 08/06/17 08/07/17 06:59 06:59 06:59 Intake Total 1360 1580 Output Total 300 3150 Balance 1060 -1570 Result Diagrams: 08/06/17 04:41 08/06/17 04:41 Additional Labs: Accuchecks 08/05/17 13:41 POC Glucose 121 H EKG Reviewed by me: Yes (nsr) Phys Exam - Physical Examination Constitutional: NAD HEENT: PERRLA, moist MMs, sclera anicteric Neck: no JVD, supple Respiratory: no wheezing, no rales, no rhonchi Cardiovascular: RRR, no significant murmur, no rub Gastrointestinal: soft, non-tender, no distention, positive bowel sounds surgical site clean Musculoskeletal: no edema, pulses present Neurological: non-focal, normal sensation, moves all 4 limbs Lymphatic: no nodes Psychiatric: normal affect, A&O x 3 Skin: no rash, normal turgor Dx/Plan (1) Acute bronchitis Code(s): J20.9 - ACUTE BRONCHITIS, UNSPECIFIED Status: Resolved Qualifiers: Bronchitis organism: unspecified organism Qualified Code(s): J20.9 - Acute bronchitis, unspecified (2) Anemia due to acute blood loss Code(s): D62 - ACUTE POSTHEMORRHAGIC ANEMIA Status: Acute (3) Atrial flutter with rapid ventricular response Code(s): I48.92 - UNSPECIFIED ATRIAL FLUTTER Status: Resolved Comment: now NSR (4) GI bleed Code(s): K92.2 - GASTROINTESTINAL HEMORRHAGE, UNSPECIFIED Status: Resolved Qualifiers: GI bleed type/associated pathology: unspecified gastrointestinal hemorrhage type Qualified Code(s): K92.2 - Gastrointestinal hemorrhage, unspecified (5) Sepsis Code(s): A41.9 - SEPSIS, UNSPECIFIED ORGANISM Status: Resolved (6) BPH (benign prostatic hyperplasia) Code(s): N40.0 - BENIGN PROSTATIC HYPERPLASIA WITHOUT LOWER URINRY TRACT SYMP Status: Chronic Qualifiers: Lower urinary tract symptom presence: symptoms absent Qualified Code(s): N40.0 - Benign prostatic hyperplasia without lower urinary tract symptoms (7) CKD (chronic kidney disease) stage 3, GFR 30-59 ml/min Code(s): N18.3 - CHRONIC KIDNEY DISEASE, STAGE 3 (MODERATE) Status: Chronic (8) Chronic anticoagulation Code(s): Z79.01 - INTERMEDIATE (CURRENT) USE OF ANTICOAGULANTS Status: Chronic (9) Dyslipidemia Code(s): E78.5 - HYPERLIPIDEMIA, UNSPECIFIED Status: Chronic (10) H/O: CVA (cerebrovascular accident) Code(s): Z86.73 - PRSNL HX OF TIA (TIA), AND CEREB INFRC W/O RESID DEFICITS Status: Chronic (11) HTN (hypertension) Code(s): I10 - ESSENTIAL (PRIMARY) HYPERTENSION Status: Chronic Qualifiers: Hypertension type: essential hypertension Qualified Code(s): I10 - Essential (primary) hypertension - Plan cont current plan of care, plan discussed w/ family * now on clear liquid diet * advancing diet will defer to surgeon * I called his and updated plan and test results * as per EP, outpt ablation for atrial flutter. * medication reviewed as below * symptomatic treatment * ambulate as tolerated Review of Systems - Review of Systems Eyes: negative: Pain, Vision Change, Conjunctivae Inflammation, Eyelid Inflammation, Redness, Other ENT: negative: Ear Pain, Ear Discharge, Nose Pain, Nose Discharge, Nose Congestion, Mouth Pain, Mouth Swelling, Throat Pain, Throat Swelling, Other Respiratory: negative: Cough, Dry, Shortness of Breath, Hemoptysis, SOB with Excertion, Pleuritic Pain, Sputum, Wheezing Cardiovascular: negative: chest pain, palpitations, orthopnea, paroxysmal nocturnal dyspnea, edema, light headedness, other Gastrointestinal: negative: Nausea, Vomiting, Abdominal Pain, Diarrhea, Constipation, Melena, Hematochezia, Other Genitourinary: negative: Dysuria, Frequency, Incontinence, Hematuria, Retention , Other Musculoskeletal: negative: Neck Pain, Shoulder Pain, Arm Pain, Back Pain, Hand Pain, Leg Pain, Foot Pain, Other Skin: negative: Rash, Lesions, [place], Bruising, Other - Medications/Allergies Allergies/Adverse Reactions: Allergies Allergy/AdvReac Type Severity Reaction Status Date / Time hydrocodone Allergy Verified 08/01/17 01:53 ibuprofen Allergy Verified 08/01/17 01:53 Medications: Current Medications Albuterol/Ipratropium (Duoneb) 3 ml NEB Q4H PRN PRN Reason: Wheezing Artificial Tears (Tears Naturale) 0 drop EA EYE PRN PRN PRN Reason: Dry Eyes Atorvastatin Calcium (Lipitor) 20 mg PO HS [facility] Last Admin: 08/05/17 21:11 Dose: 20 mg Carvedilol (Coreg) 3.125 mg PO BID [facility] Last Admin: 08/06/17 09:14 Dose: 3.125 mg Enoxaparin Sodium (Lovenox) 40 mg SC 2100 [facility] Last Admin: 08/05/17 21:11 Dose: 40 mg Fentanyl (Sublimaze) 25 mcg SLOW IVP Q2H PRN PRN Reason: Moderate Pain (4-6) Last Admin: 08/05/17 18:13 Dose: 25 mcg Fentanyl (Sublimaze) 50 mcg SLOW IVP Q2H PRN PRN Reason: Severe Pain (7-10) Last Admin: 08/06/17 09:16 Dose: 50 mcg Finasteride (Proscar) 5 mg PO DAILY [facility] Last Admin: 08/06/17 09:14 Dose: 5 mg Hydralazine HCl (Apresoline) 10 mg SLOW IVP Q4H PRN PRN Reason: SBP > 170 or DBP > 100 Last Admin: 08/06/17 00:14 Dose: 10 mg Acetaminophen 1,000 mg/ Device 100 mls @ 400 mls/hr IVPB Q6HR [facility] Stop: 08/06/17 12:14 Last Admin: 08/06/17 05:23 Dose: 100 mls Sodium Chloride (Normal Saline 0.9%) 1,000 mls @ 70 mls/hr IV .[id number] [facility] Last Admin: 08/06/17 05:26 Dose: 1,000 mls Ondansetron HCl (Zofran Odt) 4 mg PO Q6H PRN PRN Reason: Nausea/Vomiting Ondansetron HCl (Zofran) 4 mg IVP Q6H PRN PRN Reason: Nausea/Vomiting Pantoprazole Sodium (Protonix) 40 mg PO DAILY [facility] Last Admin: 08/06/17 09:14 Dose: 40 mg Promethazine HCl (Phenergan) 12.5 mg IM Q4H PRN PRN Reason: Nausea/Vomiting Sodium Chloride ([place] Nasal [place] 0.65%) 0 ml EA NARE QIDPRN PRN PRN Reason: Nasal Congestion Sodium Chloride (Flush - Normal Saline) 10 ml IVF Q12HR [facility] Last Admin: 08/06/17 09:16 Dose: Not Given Sodium Chloride (Flush - Normal Saline) 10 ml IVF PRN PRN PRN Reason: Saline Flush Tamsulosin HCl (Flomax) 0.4 mg PO BID [facility] Last Admin: 08/06/17 09:15 Dose: 0.4 mg Zolpidem Tartrate (Ambien) 5 mg PO HSPRN PRN PRN Reason: Insomnia
--- NOTE | 2017-08-06 11:04 | PDOC.GSPN ---
Surgery Progress Note: Subj - Subjective Patient reports: tolerating liquids well Surgery Progress Note: Obj - Vital signs Vital signs: Vital Signs - Most Recent Temp Pulse Resp BP Pulse Ox 98.9 F 63 17 160/66 H 96 08/06/17 08:00 08/06/17 08:00 08/06/17 08:00 08/06/17 08:00 08/06/17 08:00 - Physical Exam General: no distress Respiratory: clear to auscultation Abdomen: soft, non tender, nondistended Wound: healing well Surgery Progress Note: Results - Labs Result Diagrams: 08/06/17 04:41 08/06/17 04:41 Lab results: Laboratory Results - last 24 hr 08/06/17 08/06/17 04:41 04:41 WBC 8.9 RBC 3.20 L Hgb 8.4 L Hct 25.7 L MCV 80.2 MCH 26.2 L MCHC 32.6 RDW 15.0 H Plt Count 209 MPV 7.9 Neutrophils % 89.0 H Lymphocytes % 6.3 L Monocytes % 4.5 Eosinophils % 0.1 Basophils % 0.0 Neutrophils # 7.9 H Lymphocytes # 0.6 L Monocytes # 0.4 Eosinophils # 0.0 Basophils # 0.0 Sodium 138 Potassium 3.4 L Chloride 111 H Carbon Dioxide 22 L Anion Gap 8 L BUN 9 Creatinine 0.94 Estimated GFR (MDRD) Greater than 90 Glucose 126 H Calcium 7.6 L Surgery Progress Note: A/P - Problem (1) Colonic mass Current Visit: Yes Code(s): K63.9 - DISEASE OF INTESTINE, UNSPECIFIED Status : Acute Assessment and Plan: POD 1 right colectomy. full liquids for dinner if doing well. Encouraged ambulation
--- NOTE | 2017-08-06 14:26 | OP ---
DATE OF PROCEDURE: 08/05/2017 PREOPERATIVE DIAGNOSIS: Right colon mass. POSTOPERATIVE DIAGNOSIS: Right colon mass. PROCEDURE: Laparoscopic hand-assist right colectomy. SURGEON: Dannie Espinoza M.D. ANESTHESIA: General. ESTIMATED BLOOD LOSS: Minimal. COMPLICATIONS: None. SPECIMEN: Right colon. TECHNIQUE: The patient was taken to the operating room and placed supine on the table. After genera l anesthetic was obtained, Cross was placed, and the abdomen was prepped and draped in a sterile fash ion. Left subcostal 5-mm Optiview trocar was placed in the usual fashion. High-flow pneumoperitoneu m was obtained. Left lateral 5-mm port and a left lower quadrant 5-mm port were placed under direct visualization. Hand-assist port was placed just above the umbilicus. The right colon was mobilized along the white line of T[place]t. The ureter was found and excluded from the dissection. The peritoneu m was incised medially. The hepatic flexure of colon was taken down using cautery and LigaSure. Car e was taken to avoid damage to the duodenum. The hand-assist port top was removed and the right colo n and distal small intestine was able to be brought up through this wound. DMITRY-75 stapler was fired across the terminal ileum. The ileocolic vessels were taken low using Scarlett clamp and silk ties. Th e vessels at the hepatic flexure taken using Scarlett clamps and silk ties. The greater omentum was dis sected off of the antimesenteric surface of the colon of the proximal transverse. Here, a DMITRY-75 sta pler was fired across the proximal transverse colon. The specimen is sent to path for final diagnosi s. The small bowel was able to be brought up against the transverse colon in an isoperistaltic antim esenteric fashion. Enterotomies made on the end of the small bowel and on the more distal transverse colon and a DMITRY-75 stapler was used to form the anastomosis. The common enterotomy was closed in 2 layers using 2-0 Vicryl suture. A crotch stitch was placed, and the mesenteric defect was closed. T he specimen was placed back into the abdominal cavity. The fascia at the hand-assist ports using PDS from the top and the bottom and tied in the middle. Subcutaneous tissues were irrigated copiously u sing sterile solution. All incisions are closed using 3-0 Vicryl, 4-0 Monocryl, and Dermabond. The patient was en route to recovery in stable condition. All instrument counts, needle counts, lap coun ts were correct.
--- NOTE | 2017-08-06 17:54 | PDOC.CTH ---
Cardiology Progress Note - Subjective He is doing well. Tolerating PO intake. - Objective Vital Signs Temp Pulse Resp BP Pulse Ox 08/06/17 15:10 73 174/77 H 08/06/17 13:55 97.3 F L 63 18 185/85 H 08/06/17 12:00 98.2 F 65 16 159/68 H 97 08/06/17 08:00 98.9 F 63 17 160/66 H 96 Weight 212 lb 3.2 oz 08/05/17 08/06/17 08/07/17 06:59 06:59 06:59 Intake Total 1360 1580 240 Output Total 300 3150 300 Balance 1060 -1570 -60 - Physical Examination General/Neuro: alert & oriented x3, NAD Neck: no JVD present Lungs: unlabored respirations Heart: other: (Irregular) Abdomen: NT/ND Extremities: other: (no edema) - Labs Result Diagrams: 08/06/17 04:41 08/06/17 04:41 Troponin/CKMB CK-MB (CK-2) 0.6 ng/mL (0-6.6) 08/01/17 15:46 Troponin I 0.021 ng/mL (< 0.028) 08/01/17 15:46 - Assessment/Plan 1. Aflutter with RVR, sinus on last evaluation,. 2. Anemia due to GI bleed. 3. CAD 4. HTN 5. CKD stage 3 6. Hyperlipidemia PLAN: - Continue current meds for now. - Continue to hold Aspirin and Eliquis until safe from surgical standpoint. - Replace Veronica
[2017-08-06] MEDS ORDERED: Potassium Chloride 20 MEQ TAB PO SCH (18:00)
[2017-08-06] MEDS: Enoxaparin Sodium 40 MG/0.4 ML SYRINGE SC SCH (21:10)
[2017-08-06] MEDS: Atorvastatin Calcium 20 MG TAB PO SCH (21:11)
[2017-08-06] MEDS: Ondansetron ODT 4 MG TAB PO PRN (23:22)
[2017-08-07] MEDS: traMADol HCl 50 MG TAB PO PRN (01:55)
[2017-08-07 08:13] LABS: #Lymphocytes 1.3 thou/uL (1.20-3.40); #Monocytes 1.1 thou/uL (0.11-0.59); #Neutrophils 10.8 thou/uL (1.40-6.50); %Basophils 0.1 % (0.0-1.0); %Eosinophils 0.1 % (0.0-10.0); %Lymphocytes 9.7 % (21.0-51.0); %Monocytes 8.5 % (0.0-10.0); %Neutrophils 81.6 % (42.0-75.0); Hemoglobin 11.2 g/dL (14.0-18.0); Mean Corpuscular HGB CONC 34.1 g/dL (32.0-36.0); Mean Corpuscular Hemoglobin 27.6 pg (27.0-31.0); Mean Platelet Volume 8.5 fL (7.4-10.4); Platelet Count 293 thou/uL (130-400); RBC Distribution Width 15.4 % (11.5-14.5); Red Blood Cell (RBC) Count 4.08 mill/uL (4.70-6.10); White Blood Cell (WBC) Count 13.2 thou/uL (4.8-10.8)
[2017-08-07 08:52] LABS: Anion Gap 14 mmol/L (10-20); BUN (Urea Nitrogen) 18 mg/dL (8.4-25.7); Calc. Creatinine Clearance 51 mL/min (70-130); Calcium 8.7 mg/dL (7.8-10.44); Carbon Dioxide 22 mmol/L (23-31); Chloride 104 mmol/L (98-107); Estimated GFR-MDRD 51; Glucose 139 mg/dL (83-110); Magnesium 2.3 mg/dL (1.6-2.6); Phosphorus 3.7 mg/dL (2.3-4.7); Potassium 4.1 mmol/L (3.5-5.1); Sodium 136 mmol/L (136-145)
--- NOTE | 2017-08-07 10:05 | PDOC.PN ---
- Subjective Encounter Start Date: 08/07/17 Encounter Start Time: 08:20 pt is having nausea and vomiting, he was having dizziness this morning, Patient seen and examined for colon mass. No new complaints. No overnight events - Objective Resuscitation Status: Resuscitation Status FULL:Full Resuscitation MAR Reviewed: Yes Vital Signs & Weight: Vital Signs (12 hours) Temp Pulse Resp BP Pulse Ox 08/07/17 07:20 97.4 F L 82 16 147/76 H 98 08/07/17 03:55 97.9 F 78 18 157/78 H 97 08/07/17 00:00 98.7 F 78 16 148/76 H 97 Weight Weight 212 lb 3.2 oz I&O: 08/06/17 08/07/17 08/08/17 06:59 06:59 06:59 Intake Total 1580 600 Output Total 3150 1800 Balance -1570 -1200 Result Diagrams: 08/07/17 07:45 08/07/17 07:45 Phys Exam - Physical Examination Constitutional: NAD HEENT: PERRLA, moist MMs, sclera anicteric Neck: no JVD, supple Respiratory: no wheezing, no rales, no rhonchi Cardiovascular: RRR, no significant murmur, no rub Gastrointestinal: soft, non-tender, no distention, positive bowel sounds surgical site clean Musculoskeletal: no edema, pulses present Neurological: non-focal, normal sensation, moves all 4 limbs Lymphatic: no nodes Psychiatric: normal affect, A&O x 3 Skin: no rash, normal turgor Dx/Plan (1) GI bleed Code(s): K92.2 - GASTROINTESTINAL HEMORRHAGE, UNSPECIFIED Status: Resolved Qualifiers: GI bleed type/associated pathology: unspecified gastrointestinal hemorrhage type Qualified Code(s): K92.2 - Gastrointestinal hemorrhage, unspecified (2) Anemia due to acute blood loss Code(s): D62 - ACUTE POSTHEMORRHAGIC ANEMIA Status: Acute (3) Colonic mass Code(s): K63.9 - DISEASE OF INTESTINE, UNSPECIFIED Status: Acute (4) S/P right colectomy Code(s): Z90.49 - ACQUIRED ABSENCE OF OTHER SPECIFIED PARTS OF DIGESTIVE TRACT Status: Acute (5) Acute kidney failure Status: Resolved (6) Atrial flutter with rapid ventricular response Code(s): I48.92 - UNSPECIFIED ATRIAL FLUTTER Status: Resolved Comment: now NSR (7) Sepsis Code(s): A41.9 - SEPSIS, UNSPECIFIED ORGANISM Status: Resolved (8) BPH (benign prostatic hyperplasia) Code(s): N40.0 - BENIGN PROSTATIC HYPERPLASIA WITHOUT LOWER URINRY TRACT SYMP Status: Chronic Qualifiers: Lower urinary tract symptom presence: symptoms absent Qualified Code(s): N40.0 - Benign prostatic hyperplasia without lower urinary tract symptoms (9) CKD (chronic kidney disease) stage 3, GFR 30-59 ml/min Code(s): N18.3 - CHRONIC KIDNEY DISEASE, STAGE 3 (MODERATE) Status: Chronic (10) Chronic anticoagulation Code(s): Z79.01 - [facility] (CURRENT) USE OF ANTICOAGULANTS Status: Chronic (11) Dyslipidemia Code(s): E78.5 - HYPERLIPIDEMIA, UNSPECIFIED Status: Chronic (12) H/O: CVA (cerebrovascular accident) Code(s): Z86.73 - PRSNL HX OF TIA (TIA), AND CEREB INFRC W/O RESID DEFICITS Status: Chronic (13) HTN (hypertension) Code(s): I10 - ESSENTIAL (PRIMARY) HYPERTENSION Status: Chronic Qualifiers: Hypertension type: essential hypertension Qualified Code(s): I10 - Essential (primary) hypertension (14) Hypokalemia Code(s): E87.6 - HYPOKALEMIA Status: Acute (15) Acute bronchitis Code(s): J20.9 - ACUTE BRONCHITIS, UNSPECIFIED Status: Resolved Qualifiers: Bronchitis organism: unspecified organism Qualified Code(s): J20.9 - Acute bronchitis, unspecified - Plan cont current plan of care * will keep NPO * start IVF * medication reviewed as below * symptomatic treatment * will monitor on surgical floor * will start anticoagulant when surgeon OK. Review of Systems - Review of Systems Constitutional: negative: fever, chills, sweats, weakness, malaise, other ENT: negative: Ear Pain, Ear Discharge, Nose Pain, Nose Discharge, Nose Congestion, Mouth Pain, Mouth Swelling, Throat Pain, Throat Swelling, Other Respiratory: negative: Cough, Dry, Shortness of Breath, Hemoptysis, SOB with Excertion, Pleuritic Pain, Sputum, Wheezing Cardiovascular: light headedness. negative: chest pain, palpitations, orthopnea , paroxysmal nocturnal dyspnea, edema, other Gastrointestinal: Nausea, Vomiting. negative: Abdominal Pain, Diarrhea, Constipation, Melena, Hematochezia, Other Genitourinary: negative: Dysuria, Frequency, Incontinence, Hematuria, Retention , Other Musculoskeletal: negative: Neck Pain, Shoulder Pain, Arm Pain, Back Pain, Hand Pain, Leg Pain, Foot Pain, Other Skin: negative: Rash, Lesions, [place], Bruising, Other - Medications/Allergies Allergies/Adverse Reactions: Allergies Allergy/AdvReac Type Severity Reaction Status Date / Time hydrocodone Allergy Verified 08/01/17 01:53 ibuprofen Allergy Verified 08/01/17 01:53 Medications: Current Medications Albuterol/Ipratropium (Duoneb) 3 ml NEB Q4H PRN PRN Reason: Wheezing Artificial Tears (Tears Naturale) 0 drop EA EYE PRN PRN PRN Reason: Dry Eyes Atorvastatin Calcium (Lipitor) 20 mg PO HS [facility] Last Admin: 08/06/17 21:11 Dose: 20 mg Carvedilol (Coreg) 3.125 mg PO BID [facility] Last Admin: 08/06/17 21:11 Dose: 3.125 mg Enoxaparin Sodium (Lovenox) 40 mg SC 2100 [facility] Last Admin: 08/06/17 21:10 Dose: 40 mg Fentanyl (Sublimaze) 25 mcg SLOW IVP Q2H PRN PRN Reason: Moderate Pain (4-6) Last Admin: 08/05/17 18:13 Dose: 25 mcg Fentanyl (Sublimaze) 50 mcg SLOW IVP Q2H PRN PRN Reason: Severe Pain (7-10) Last Admin: 08/06/17 09:16 Dose: 50 mcg Finasteride (Proscar) 5 mg PO DAILY [facility] Last Admin: 08/06/17 09:14 Dose: 5 mg Hydralazine HCl (Apresoline) 10 mg SLOW IVP Q4H PRN PRN Reason: SBP > 170 or DBP > 100 Last Admin: 08/06/17 18:26 Dose: 10 mg Sodium Chloride (Normal Saline 0.9%) 1,000 mls @ 100 mls/hr IV .Q10H [facility] Ondansetron HCl (Zofran Odt) 4 mg PO Q6H PRN PRN Reason: Nausea/Vomiting Last Admin: 08/06/17 23:22 Dose: 4 mg Ondansetron HCl (Zofran) 4 mg IVP Q6H PRN PRN Reason: Nausea/Vomiting Pantoprazole Sodium (Protonix) 40 mg PO DAILY [facility] Last Admin: 08/06/17 09:14 Dose: 40 mg Promethazine HCl (Phenergan) 12.5 mg IM Q4H PRN PRN Reason: Nausea/Vomiting Last Admin: 08/07/17 03:38 Dose: 12.5 mg Sodium Chloride ([place] Nasal [place] 0.65%) 0 ml EA NARE QIDPRN PRN PRN Reason: Nasal Congestion Sodium Chloride (Flush - Normal Saline) 10 ml IVF Q12HR [facility] Last Admin: 08/06/17 21:11 Dose: 10 ml Sodium Chloride (Flush - Normal Saline) 10 ml IVF PRN PRN PRN Reason: Saline Flush Tamsulosin HCl (Flomax) 0.4 mg PO BID [facility] Last Admin: 08/06/17 21:11 Dose: 0.4 mg Tramadol HCl (Ultram) 100 mg PO Q6H PRN PRN Reason: Moderate Pain (4-6) Last Admin: 08/07/17 01:55 Dose: 100 mg Zolpidem Tartrate (Ambien) 5 mg PO HSPRN PRN PRN Reason: Insomnia
[2017-08-07] MEDS: Sodium Chloride 0.9% 1,000 ML IV SCH ×2 (10:53→20:44)
[2017-08-07] MEDS: Finasteride 5 MG TAB PO SCH (11:25)
[2017-08-07] MEDS: Carvedilol 3.125 MG TAB PO SCH ×2 (11:25→20:37)
[2017-08-07] MEDS: Tamsulosin HCl 0.4 MG CAP PO SCH ×2 (11:25→20:37)
[2017-08-07] MEDS ORDERED: Pantoprazole 40 MG VIAL IVP SCH (11:30)
--- NOTE | 2017-08-07 13:52 | PDOC.GSPN ---
Surgery Progress Note: Subj - Subjective Patient reports: nausea (and vomited this am. Feels better now) Surgery Progress Note: Obj - Vital signs Vital signs: Vital Signs - Most Recent Temp Pulse Resp BP Pulse Ox 98 F 91 18 154/72 H 97 08/07/17 11:10 08/07/17 11:10 08/07/17 11:10 08/07/17 11:10 08/07/17 11:10 - Physical Exam General: no distress Respiratory: clear to auscultation Abdomen: soft, positive bowel sounds, distended Surgery Progress Note: Results - Labs Result Diagrams: 08/07/17 07:45 08/07/17 07:45 Lab results: Laboratory Results - last 24 hr 08/07/17 08/07/17 07:45 07:45 WBC 13.2 H RBC 4.08 L Hgb 11.2 L Hct 33.0 L MCV 81.0 MCH 27.6 MCHC 34.1 RDW 15.4 H Plt Count 293 MPV 8.5 Neutrophils % 81.6 H Lymphocytes % 9.7 L Monocytes % 8.5 Eosinophils % 0.1 Basophils % 0.1 Neutrophils # 10.8 H Lymphocytes # 1.3 Monocytes # 1.1 H Eosinophils # 0.0 Basophils # 0.0 Sodium 136 Potassium 4.1 Chloride 104 Carbon Dioxide 22 L Anion Gap 14 BUN 18 Creatinine 1.58 H Estimated GFR (MDRD) 51 Glucose 139 H Calcium 8.7 Phosphorus 3.7 Magnesium 2.3 Surgery Progress Note: A/P - Problem (1) Colonic mass Current Visit: Yes Code(s): K63.9 - DISEASE OF INTESTINE, UNSPECIFIED Status : Acute - Plan Plan: POD 2 with mild nausea and vomitting this am. Now feels better. Back on clears.
--- NOTE | 2017-08-07 17:27 | PDOC.CTH ---
Cardiology Progress Note - Subjective He has had some nausea and vomiting and he has been switched back to a liquid diet. - Objective Vital Signs Temp Pulse Resp BP Pulse Ox 08/07/17 15:28 97.9 F 72 16 174/80 H 97 08/07/17 11:10 98 F 91 18 154/72 H 97 08/07/17 07:20 97.4 F L 82 16 147/76 H 98 Weight 212 lb 3.2 oz 08/06/17 08/07/17 08/08/17 06:59 06:59 06:59 Intake Total 1580 600 Output Total 3150 1800 Balance -1570 -1200 - Physical Examination General/Neuro: alert & oriented x3, NAD Neck: no JVD present Lungs: unlabored respirations Heart: other: (Irregular) Abdomen: NT/ND Extremities: + edema B (trace) - Labs Result Diagrams: 08/07/17 07:45 08/07/17 07:45 Troponin/CKMB CK-MB (CK-2) 0.6 ng/mL (0-6.6) 08/01/17 15:46 Troponin I 0.021 ng/mL (< 0.028) 08/01/17 15:46 - Assessment/Plan 1. Aflutter with RVR, sinus now. May be having a small paroxysm but HR in the 80 's. 2. Anemia due to GI bleed. 3. CAD 4. HTN 5. CKD stage 3 6. Hyperlipidemia. 7. Colon mass s/p resection. 8. S/P Hemicolectomy. PLAN: - Continue current meds for now. - Continue to hold Aspirin and Eliquis until abdominal status improves.
[2017-08-07] MEDS: Enoxaparin Sodium 40 MG/0.4 ML SYRINGE SC SCH (20:36)
[2017-08-07] MEDS: Atorvastatin Calcium 20 MG TAB PO SCH (20:37)
[2017-08-08] MEDS: Sodium Chloride 0.9% 1,000 ML IV SCH ×3 (06:35→18:00)
[2017-08-08 07:31] LABS: #Lymphocytes 1.1 thou/uL (1.20-3.40); #Monocytes 1.2 thou/uL (0.11-0.59); #Neutrophils 6.6 thou/uL (1.40-6.50); %Basophils 0.1 % (0.0-1.0); %Eosinophils 0.4 % (0.0-10.0); %Lymphocytes 11.9 % (21.0-51.0); %Monocytes 13.4 % (0.0-10.0); %Neutrophils 74.2 % (42.0-75.0); Hemoglobin 9.9 g/dL (14.0-18.0); Mean Corpuscular HGB CONC 32.5 g/dL (32.0-36.0); Mean Corpuscular Hemoglobin 25.8 pg (27.0-31.0); Mean Corpuscular Volume 79.4 fl (80.0-94.0); Mean Platelet Volume 7.8 fL (7.4-10.4); Platelet Count 265 thou/uL (130-400); RBC Distribution Width 15.6 % (11.5-14.5); Red Blood Cell (RBC) Count 3.83 mill/uL (4.70-6.10); White Blood Cell (WBC) Count 8.9 thou/uL (4.8-10.8)
[2017-08-08 07:53] LABS: Anion Gap 11 mmol/L (10-20); BUN (Urea Nitrogen) 23 mg/dL (8.4-25.7); Calc. Creatinine Clearance 42 mL/min (70-130); Calcium 7.7 mg/dL (7.8-10.44); Carbon Dioxide 23 mmol/L (23-31); Chloride 104 mmol/L (98-107); Estimated GFR-MDRD 42; Glucose 110 mg/dL (83-110); Sodium 134 mmol/L (136-145)
[2017-08-08] MEDS: Tamsulosin HCl 0.4 MG CAP PO SCH ×2 (09:46→20:38)
[2017-08-08] MEDS: Carvedilol 3.125 MG TAB PO SCH ×2 (09:46→20:38)
[2017-08-08] MEDS: Pantoprazole 40 MG VIAL IVP SCH (09:46)
[2017-08-08] MEDS: Finasteride 5 MG TAB PO SCH (09:46)
--- NOTE | 2017-08-08 10:15 | PDOC.PN ---
- Subjective Encounter Start Date: 08/08/17 Encounter Start Time: 08:30 Patient seen and examined for colon mass, today he has mild nausea, he is on liquid diet, creatinine is elevated. No new complaints. No overnight events - Objective Resuscitation Status: Resuscitation Status FULL:Full Resuscitation MAR Reviewed: Yes Vital Signs & Weight: Vital Signs (12 hours) Temp Pulse Resp BP Pulse Ox 08/08/17 08:00 98.0 F 91 15 158/70 H 94 L 08/08/17 04:00 98.2 F 92 17 132/69 95 08/07/17 23:54 97.7 F 84 18 163/70 H 95 Weight Weight 212 lb 3.2 oz I&O: 08/07/17 08/08/17 08/09/17 06:59 06:59 06:59 Intake Total 600 3800 Output Total 1800 1450 Balance -1200 2350 Result Diagrams: 08/08/17 07:21 08/08/17 07:21 Phys Exam - Physical Examination Constitutional: NAD HEENT: PERRLA, moist MMs, sclera anicteric Neck: no JVD, supple Respiratory: no wheezing, no rales, no rhonchi Cardiovascular: RRR, no significant murmur, no rub Gastrointestinal: soft, non-tender, no distention, positive bowel sounds surgical site clean Musculoskeletal: no edema, pulses present Neurological: non-focal, normal sensation, moves all 4 limbs Lymphatic: no nodes Psychiatric: normal affect, A&O x 3 Skin: no rash, normal turgor Dx/Plan (1) GI bleed Code(s): K92.2 - GASTROINTESTINAL HEMORRHAGE, UNSPECIFIED Status: Resolved Qualifiers: GI bleed type/associated pathology: unspecified gastrointestinal hemorrhage type Qualified Code(s): K92.2 - Gastrointestinal hemorrhage, unspecified (2) Anemia due to acute blood loss Code(s): D62 - ACUTE POSTHEMORRHAGIC ANEMIA Status: Acute (3) Colonic mass Code(s): K63.9 - DISEASE OF INTESTINE, UNSPECIFIED Status: Acute (4) S/P right colectomy Code(s): Z90.49 - ACQUIRED ABSENCE OF OTHER SPECIFIED PARTS OF DIGESTIVE TRACT Status: Acute (5) Acute kidney failure Status: Acute (6) Atrial flutter with rapid ventricular response Code(s): I48.92 - UNSPECIFIED ATRIAL FLUTTER Status: Resolved Comment: now NSR (7) Sepsis Code(s): A41.9 - SEPSIS, UNSPECIFIED ORGANISM Status: Resolved (8) BPH (benign prostatic hyperplasia) Code(s): N40.0 - BENIGN PROSTATIC HYPERPLASIA WITHOUT LOWER URINRY TRACT SYMP Status: Chronic Qualifiers: Lower urinary tract symptom presence: symptoms absent Qualified Code(s): N40.0 - Benign prostatic hyperplasia without lower urinary tract symptoms (9) CKD (chronic kidney disease) stage 3, GFR 30-59 ml/min Code(s): N18.3 - CHRONIC KIDNEY DISEASE, STAGE 3 (MODERATE) Status: Chronic (10) Chronic anticoagulation Code(s): 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 Status: Chronic (11) Dyslipidemia Code(s): E78.5 - HYPERLIPIDEMIA, UNSPECIFIED Status: Chronic (12) H/O: CVA (cerebrovascular accident) Code(s): Z86.73 - PRSNL HX OF TIA (TIA), AND CEREB INFRC W/O RESID DEFICITS Status: Chronic (13) HTN (hypertension) Code(s): I10 - ESSENTIAL (PRIMARY) HYPERTENSION Status: Chronic Qualifiers: Hypertension type: essential hypertension Qualified Code(s): I10 - Essential (primary) hypertension (14) Hypokalemia Code(s): E87.6 - HYPOKALEMIA Status: Resolved (15) Acute bronchitis Code(s): J20.9 - ACUTE BRONCHITIS, UNSPECIFIED Status: Resolved Qualifiers: Bronchitis organism: unspecified organism Qualified Code(s): J20.9 - Acute bronchitis, unspecified - Plan cont current plan of care * on clear liquid diet * will defer diet advancement to surgeon * will need ablation for atrial flutter after discharge * resume elliquis once stable post op * increase IVF NS at 125 ml per hour * repeat labs tomorrow * medication reviewed as below * symptomatic treatment. * discussed with surgeon Review of Systems - Review of Systems Eyes: negative: Pain, Vision Change, Conjunctivae Inflammation, Eyelid Inflammation, Redness, Other ENT: negative: Ear Pain, Ear Discharge, Nose Pain, Nose Discharge, Nose Congestion, Mouth Pain, Mouth Swelling, Throat Pain, Throat Swelling, Other Respiratory: negative: Cough, Dry, Shortness of Breath, Hemoptysis, SOB with Excertion, Pleuritic Pain, Sputum, Wheezing Cardiovascular: negative: chest pain, palpitations, orthopnea, paroxysmal nocturnal dyspnea, edema, light headedness, other Gastrointestinal: Nausea, Vomiting. negative: Abdominal Pain, Diarrhea, Constipation, Melena, Hematochezia, Other Genitourinary: negative: Dysuria, Frequency, Incontinence, Hematuria, Retention , Other Musculoskeletal: negative: Neck Pain, Shoulder Pain, Arm Pain, Back Pain, Hand Pain, Leg Pain, Foot Pain, Other Skin: negative: Rash, Lesions, [place], Bruising, Other - Medications/Allergies Allergies/Adverse Reactions: Allergies Allergy/AdvReac Type Severity Reaction Status Date / Time hydrocodone Allergy Verified 08/01/17 01:53 ibuprofen Allergy Verified 08/01/17 01:53 Medications: Current Medications Albuterol/Ipratropium (Duoneb) 3 ml NEB Q4H PRN PRN Reason: Wheezing Artificial Tears (Tears Naturale) 0 drop EA EYE PRN PRN PRN Reason: Dry Eyes Atorvastatin Calcium (Lipitor) 20 mg PO HS [facility] Last Admin: 08/07/17 20:37 Dose: 20 mg Carvedilol (Coreg) 3.125 mg PO BID [facility] Last Admin: 08/08/17 09:46 Dose: 3.125 mg Enoxaparin Sodium (Lovenox) 40 mg SC 2100 [facility] Last Admin: 08/07/17 20:36 Dose: 40 mg Fentanyl (Sublimaze) 25 mcg SLOW IVP Q2H PRN PRN Reason: Moderate Pain (4-6) Last Admin: 08/05/17 18:13 Dose: 25 mcg Fentanyl (Sublimaze) 50 mcg SLOW IVP Q2H PRN PRN Reason: Severe Pain (7-10) Last Admin: 08/06/17 09:16 Dose: 50 mcg Finasteride (Proscar) 5 mg PO DAILY [facility] Last Admin: 08/08/17 09:46 Dose: 5 mg Hydralazine HCl (Apresoline) 10 mg SLOW IVP Q4H PRN PRN Reason: SBP > 170 or DBP > 100 Last Admin: 08/06/17 18:26 Dose: 10 mg Sodium Chloride (Normal Saline 0.9%) 1,000 mls @ 100 mls/hr IV .Q10H [facility] Last Admin: 08/08/17 06:35 Dose: 1,000 mls Ondansetron HCl (Zofran Odt) 4 mg PO Q6H PRN PRN Reason: Nausea/Vomiting Last Admin: 08/06/17 23:22 Dose: 4 mg Ondansetron HCl (Zofran) 4 mg IVP Q6H PRN PRN Reason: Nausea/Vomiting Pantoprazole Sodium (Protonix) 40 mg IVP DAILY [facility] Last Admin: 08/08/17 09:46 Dose: 40 mg Promethazine HCl (Phenergan) 12.5 mg IM Q4H PRN PRN Reason: Nausea/Vomiting Last Admin: 08/07/17 03:38 Dose: 12.5 mg Sodium Chloride ([place] Nasal [place] 0.65%) 0 ml EA NARE QIDPRN PRN PRN Reason: Nasal Congestion Sodium Chloride (Flush - Normal Saline) 10 ml IVF Q12HR [facility] Last Admin: 08/07/17 23:55 Dose: Not Given Sodium Chloride (Flush - Normal Saline) 10 ml IVF PRN PRN PRN Reason: Saline Flush Tamsulosin HCl (Flomax) 0.4 mg PO BID [facility] Last Admin: 08/08/17 09:46 Dose: 0.4 mg Tramadol HCl (Ultram) 100 mg PO Q6H PRN PRN Reason: Moderate Pain (4-6) Last Admin: 08/07/17 01:55 Dose: 100 mg Zolpidem Tartrate (Ambien) 5 mg PO HSPRN PRN PRN Reason: Insomnia
[2017-08-08] MEDS: hydrALAZINE 20 MG/ML VIAL SLOW IVP PRN (12:05)
--- NOTE | 2017-08-08 12:41 | PDOC.GSPN ---
Surgery Progress Note: Subj - Subjective Narrative: Patient feeling bloated with occasional nausea. Vomitted a small amount earlier today. Having bowel movements Surgery Progress Note: Obj - Vital signs Vital signs: Vital Signs - Most Recent Temp Pulse Resp BP Pulse Ox 98.2 F 66 18 172/75 H 98 08/08/17 11:50 08/08/17 11:50 08/08/17 11:50 08/08/17 11:50 08/08/17 11:50 - Physical Exam General: no distress Cardiovascular: regular rate and rhythm Respiratory: clear to auscultation Abdomen: soft, distended (Decreased bowel sounds) Surgery Progress Note: Results - Labs Result Diagrams: 08/08/17 07:21 08/08/17 07:21 Lab results: Laboratory Results - last 24 hr 08/08/17 08/08/17 07:21 07:21 WBC 8.9 RBC 3.83 L Hgb 9.9 L Hct 30.4 L MCV 79.4 L MCH 25.8 L MCHC 32.5 RDW 15.6 H Plt Count 265 MPV 7.8 Neutrophils % 74.2 Lymphocytes % 11.9 L Monocytes % 13.4 H Eosinophils % 0.4 Basophils % 0.1 Neutrophils # 6.6 H Lymphocytes # 1.1 L Monocytes # 1.2 H Eosinophils # 0.0 Basophils # 0.0 Sodium 134 L Potassium 4.0 Chloride 104 Carbon Dioxide 23 Anion Gap 11 BUN 23 Creatinine 1.89 H Estimated GFR (MDRD) 42 Glucose 110 Calcium 7.7 L Surgery Progress Note: A/P - Problem (1) Colonic mass Current Visit: Yes Code(s): K63.9 - DISEASE OF INTESTINE, UNSPECIFIED Status : Acute Assessment and Plan: POD 3 right colectomy, resolving expected ileus. Clears until less distended
--- NOTE | 2017-08-08 15:11 | PDOC.CTH ---
Cardiology Progress Note - Subjective No chest pain. He continues to not tolerate PO route but is having BM's. - Objective Vital Signs Temp Pulse Resp BP Pulse Ox 08/08/17 11:50 98.2 F 66 18 172/75 H 98 08/08/17 08:00 98.2 F 66 18 158/70 H 94 L 08/08/17 04:00 98.2 F 92 17 132/69 95 Weight 212 lb 3.2 oz 08/07/17 08/08/17 08/09/17 06:59 06:59 06:59 Intake Total 600 3800 Output Total 1800 1450 Balance -1200 2350 - Physical Examination General/Neuro: alert & oriented x3, NAD Neck: no JVD present Lungs: CTA, unlabored respirations Heart: RRR Abdomen: NT/ND Extremities: other: (no edema) - Telemetry Telemetry Rhythm: - Labs Result Diagrams: 08/08/17 07:21 08/08/17 07:21 Troponin/CKMB CK-MB (CK-2) 0.6 ng/mL (0-6.6) 08/01/17 15:46 Troponin I 0.021 ng/mL (< 0.028) 08/01/17 15:46 - Assessment/Plan 1. Aflutter with RVR, sinus now. May be having a small paroxysm but HR in the 80 's. 2. Anemia due to GI bleed. 3. CAD 4. HTN 5. CKD stage 3 6. Hyperlipidemia. 7. Colon mass s/p resection. 8. S/P Right Hemicolectomy. PLAN: - Continue current meds for now. - Continue to hold Aspirin and Eliquis until abdominal status improves.
[2017-08-08] MEDS: Atorvastatin Calcium 20 MG TAB PO SCH (20:38)
[2017-08-08] MEDS: Enoxaparin Sodium 40 MG/0.4 ML SYRINGE SC SCH (20:38)
[2017-08-09] MEDS: Sodium Chloride 0.9% 1,000 ML IV SCH ×3 (00:43→16:46)
[2017-08-09 05:35] LABS: Anion Gap 7 mmol/L (10-20); BUN (Urea Nitrogen) 16 mg/dL (8.4-25.7); Calc. Creatinine Clearance 58 mL/min (70-130); Calcium 7.8 mg/dL (7.8-10.44); Carbon Dioxide 23 mmol/L (23-31); Chloride 107 mmol/L (98-107); Estimated GFR-MDRD 60; Glucose 92 mg/dL (83-110); Potassium 3.7 mmol/L (3.5-5.1); Sodium 133 mmol/L (136-145)
[2017-08-09 06:16] LABS: Band 1 % (5-11); Hemoglobin 8.8 g/dL (14.0-18.0); Lymphocytes 26 % (21-51); MDiff Complete? YES; Mean Corpuscular HGB CONC 33.2 g/dL (32.0-36.0); Mean Corpuscular Hemoglobin 26.2 pg (27.0-31.0); Mean Platelet Volume 7.8 fL (7.4-10.4); Monocytes 6 % (0-10); Neutrophil 67 % (42-75); Platelet Count 256 thou/uL (130-400); RBC Distribution Width 15.7 % (11.5-14.5); Red Blood Cell (RBC) Count 3.35 mill/uL (4.70-6.10); White Blood Cell (WBC) Count 6.9 thou/uL (4.8-10.8)
[2017-08-09] MEDS: Ondansetron ODT 4 MG TAB PO PRN (07:52)
[2017-08-09] MEDS: Pantoprazole 40 MG VIAL IVP SCH (07:53)
[2017-08-09] MEDS: Carvedilol 3.125 MG TAB PO SCH (07:53)
[2017-08-09] MEDS: Tamsulosin HCl 0.4 MG CAP PO SCH ×2 (07:53→21:20)
[2017-08-09] MEDS: Finasteride 5 MG TAB PO SCH (07:57)
--- NOTE | 2017-08-09 09:45 | PDOC.GSPN ---
Surgery Progress Note: Subj - Subjective Narrative: Still having occasional nausea. No more vomitting and he has had a few bowel movements Surgery Progress Note: Obj - Vital signs Vital signs: Vital Signs - Most Recent Temp Pulse Resp BP Pulse Ox 98.2 F 78 18 175/69 H 96 08/09/17 08:00 08/09/17 08:00 08/09/17 08:00 08/09/17 08:00 08/09/17 08:00 - Physical Exam General: no distress Cardiovascular: regular rate and rhythm Respiratory: clear to auscultation Abdomen: soft, non tender, positive bowel sounds, distended Surgery Progress Note: Results - Labs Result Diagrams: 08/09/17 04:38 08/09/17 04:38 Lab results: Laboratory Results - last 24 hr 08/09/17 08/09/17 04:38 04:38 WBC 6.9 RBC 3.35 L Hgb 8.8 L Hct 26.5 L MCV 79.0 L MCH 26.2 L MCHC 33.2 RDW 15.7 H Plt Count 256 MPV 7.8 Neutrophils % (Manual) 67 Band Neuts % (Manual) 1 L Lymphocytes % (Manual) 26 Monocytes % (Manual) 6 Sodium 133 L Potassium 3.7 Chloride 107 Carbon Dioxide 23 Anion Gap 7 L BUN 16 Creatinine 1.38 H Estimated GFR (MDRD) 60 Glucose 92 Calcium 7.8 Surgery Progress Note: A/P - Problem (1) Colonic mass Current Visit: Yes Code(s): K63.9 - DISEASE OF INTESTINE, UNSPECIFIED Status : Acute Assessment and Plan: Expected postop ileus slow to resolve. Continue clears until bloating improves
--- NOTE | 2017-08-09 12:23 | PDOC.PN ---
- Subjective Encounter Start Date: 08/09/17 Encounter Start Time: 08:40 Pt seen for followup re: colon cancer. Denies chest pain, shortness of breath, fevers or chills. - Objective Resuscitation Status: Resuscitation Status FULL:Full Resuscitation Vital Signs & Weight: Vital Signs (12 hours) Temp Pulse Resp BP Pulse Ox 08/09/17 12:00 97.2 F L 89 18 180/79 H 97 08/09/17 08:01 98.2 F 78 18 96 08/09/17 08:00 98.2 F 78 18 175/69 H 96 08/09/17 05:20 166/82 H 08/09/17 04:07 98.2 F 75 16 171/77 H 97 08/09/17 03:55 98.2 F 75 16 166/82 H 97 08/09/17 00:42 98.4 F 80 16 168/72 H 97 Weight Weight 212 lb 3.2 oz I&O: 08/08/17 08/09/17 08/10/17 06:59 06:59 06:59 Intake Total 3800 4420 Output Total 1450 1505 Balance 2350 2915 Result Diagrams: 08/09/17 04:38 08/09/17 04:38 Additional Labs: Labs reviewed by me Phys Exam - Physical Examination Constitutional: NAD HEENT: moist MMs Neck: supple Respiratory: clear to auscultation bilateral Cardiovascular: RRR Gastrointestinal: soft Neurological: moves all 4 limbs Psychiatric: normal affect Dx/Plan (1) Colon cancer Code(s): C18.9 - MALIGNANT NEOPLASM OF COLON, UNSPECIFIED Status: Acute Comment: s/p hemicolectomy (2) Atrial flutter Code(s): I48.92 - UNSPECIFIED ATRIAL FLUTTER Status: Acute Comment: appears to be in sinus rhythm now (3) BPH (benign prostatic hyperplasia) Code(s): N40.0 - BENIGN PROSTATIC HYPERPLASIA WITHOUT LOWER URINRY TRACT SYMP Status: Chronic Qualifiers: Lower urinary tract symptom presence: symptoms absent Qualified Code(s): N40.0 - Benign prostatic hyperplasia without lower urinary tract symptoms Comment: stable (4) CKD (chronic kidney disease) stage 3, GFR 30-59 ml/min Code(s): N18.3 - CHRONIC KIDNEY DISEASE, STAGE 3 (MODERATE) Status: Chronic Comment: stable (5) Dyslipidemia Code(s): E78.5 - HYPERLIPIDEMIA, UNSPECIFIED Status: Chronic (6) HTN (hypertension) Code(s): I10 - ESSENTIAL (PRIMARY) HYPERTENSION Status: Chronic Qualifiers: Hypertension type: essential hypertension Qualified Code(s): I10 - Essential (primary) hypertension Comment: BP high. Increase Coreg dose, monitor vital signs, titrate antihypertensives as needed - Plan * . Review of Systems - Review of Systems Constitutional: negative: fever, chills, sweats, weakness, malaise Cardiovascular: negative: chest pain, palpitations, orthopnea, paroxysmal nocturnal dyspnea, edema, light headedness - Medications/Allergies Allergies/Adverse Reactions: Allergies Allergy/AdvReac Type Severity Reaction Status Date / Time hydrocodone Allergy Verified 08/01/17 01:53 ibuprofen Allergy Verified 08/01/17 01:53 Medications: Current Medications Albuterol/Ipratropium (Duoneb) 3 ml NEB Q4H PRN PRN Reason: Wheezing Artificial Tears (Tears Naturale) 0 drop EA EYE PRN PRN PRN Reason: Dry Eyes Atorvastatin Calcium (Lipitor) 20 mg PO HS [facility] Last Admin: 08/08/17 20:38 Dose: 20 mg Carvedilol (Coreg) 3.125 mg PO BID [facility] Last Admin: 08/09/17 07:53 Dose: 3.125 mg Enoxaparin Sodium (Lovenox) 40 mg SC 2100 [facility] Last Admin: 08/08/17 20:38 Dose: 40 mg Fentanyl (Sublimaze) 25 mcg SLOW IVP Q2H PRN PRN Reason: Moderate Pain (4-6) Last Admin: 08/05/17 18:13 Dose: 25 mcg Fentanyl (Sublimaze) 50 mcg SLOW IVP Q2H PRN PRN Reason: Severe Pain (7-10) Last Admin: 08/06/17 09:16 Dose: 50 mcg Finasteride (Proscar) 5 mg PO DAILY [facility] Last Admin: 08/09/17 07:57 Dose: 5 mg Hydralazine HCl (Apresoline) 10 mg SLOW IVP Q4H PRN PRN Reason: SBP > 170 or DBP > 100 Last Admin: 08/08/17 12:05 Dose: 10 mg Sodium Chloride (Normal Saline 0.9%) 1,000 mls @ 125 mls/hr IV .Q8H [facility] Last Admin: 08/09/17 08:01 Dose: 1,000 mls Ondansetron HCl (Zofran Odt) 4 mg PO Q6H PRN PRN Reason: Nausea/Vomiting Last Admin: 08/09/17 07:52 Dose: 4 mg Ondansetron HCl (Zofran) 4 mg IVP Q6H PRN PRN Reason: Nausea/Vomiting Pantoprazole Sodium (Protonix) 40 mg IVP DAILY [facility] Last Admin: 08/09/17 07:53 Dose: 40 mg Promethazine HCl (Phenergan) 12.5 mg IM Q4H PRN PRN Reason: Nausea/Vomiting Last Admin: 08/07/17 03:38 Dose: 12.5 mg Sodium Chloride ([place] Nasal [place] 0.65%) 0 ml EA NARE QIDPRN PRN PRN Reason: Nasal Congestion Sodium Chloride (Flush - Normal Saline) 10 ml IVF Q12HR [facility] Last Admin: 08/09/17 07:54 Dose: 10 ml Sodium Chloride (Flush - Normal Saline) 10 ml IVF PRN PRN PRN Reason: Saline Flush Tamsulosin HCl (Flomax) 0.4 mg PO BID [facility] Last Admin: 08/09/17 07:53 Dose: 0.4 mg Tramadol HCl (Ultram) 100 mg PO Q6H PRN PRN Reason: Moderate Pain (4-6) Last Admin: 08/07/17 01:55 Dose: 100 mg Zolpidem Tartrate (Ambien) 5 mg PO HSPRN PRN PRN Reason: Insomnia
[2017-08-09] MEDS: hydrALAZINE 20 MG/ML VIAL SLOW IVP PRN (12:28)
--- NOTE | 2017-08-09 14:08 | PDOC.CTH ---
Cardiology Progress Note - Subjective No new issues. - Objective Vital Signs Temp Pulse Resp BP BP Pulse Ox 08/09/17 12:28 89 180/79 H 08/09/17 12:00 97.2 F L 89 18 180/79 H 97 08/09/17 08:01 98.2 F 78 18 96 08/09/17 08:00 98.2 F 78 18 175/69 H 96 08/09/17 05:20 166/82 H 08/09/17 04:07 98.2 F 75 16 171/77 H 97 08/09/17 03:55 98.2 F 75 16 166/82 H 97 Weight 212 lb 3.2 oz 08/08/17 08/09/17 08/10/17 06:59 06:59 06:59 Intake Total 3800 4420 Output Total 1450 1505 Balance 2350 2915 - Physical Examination General/Neuro: alert & oriented x3, NAD Neck: no JVD present Lungs: CTA, unlabored respirations Heart: other: (Irreg) Abdomen: other: (+BS) Extremities: other: (no edema) - Labs Result Diagrams: 08/09/17 04:38 08/09/17 04:38 Troponin/CKMB CK-MB (CK-2) 0.6 ng/mL (0-6.6) 08/01/17 15:46 Troponin I 0.021 ng/mL (< 0.028) 08/01/17 15:46 - Assessment/Plan 1. Aflutter with RVR, sinus now. May be having a small paroxysm but HR in the 80 's. 2. Anemia due to GI bleed. 3. CAD 4. HTN 5. CKD stage 3 6. Hyperlipidemia. 7. Colon mass s/p resection. 8. S/P Right Hemicolectomy. 3 9. Post op Ileus, slow to resolve. PLAN: - Continue current meds for now. - Continue to hold Aspirin and Eliquis until abdominal status improves. 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
[2017-08-09] MEDS: Carvedilol 6.25 MG TAB PO SCH (16:45)
[2017-08-09] MEDS ORDERED: Carvedilol 25 MG TAB PO SCH (17:00)
[2017-08-09] MEDS: Enoxaparin Sodium 40 MG/0.4 ML SYRINGE SC SCH (21:20)
[2017-08-09] MEDS: Atorvastatin Calcium 20 MG TAB PO SCH (21:20)
[2017-08-09] MEDS: traMADol HCl 50 MG TAB PO PRN (21:25)
[2017-08-10] MEDS: Sodium Chloride 0.9% 1,000 ML IV SCH ×3 (02:02→18:38)
[2017-08-10] MEDS: Carvedilol 6.25 MG TAB PO SCH ×2 (09:24→18:03)
[2017-08-10] MEDS: Pantoprazole 40 MG VIAL IVP SCH (09:24)
[2017-08-10] MEDS: Finasteride 5 MG TAB PO SCH (09:25)
[2017-08-10] MEDS: Tamsulosin HCl 0.4 MG CAP PO SCH ×2 (09:25→20:48)
--- NOTE | 2017-08-10 13:38 | RAD ---
ABDOMEN 2 VIEWS: HISTORY: Distention. COMPARISON: None. FINDINGS: Two views of the abdomen demonstrate multiple differential air fluid levels. Air-filled loops of sma ll bowel are identified. Paucity of gas in the colon. Obstructive process is suspected. No pneumop eritoneum. IMPRESSION: Small bowel obstruction. POS: [facility]
--- NOTE | 2017-08-10 19:05 | PDOC.GSPN ---
Surgery Progress Note: Subj - Subjective Narrative: Still very bloated. No nausea but cramps. 2 small BMs yesterday, not passing gas today. Abd very distended and tympanitic. Hyperactive bowel sounds. A/P) Distended, but good bowel sounds. KUB ordered which showed possible SBO. Pt NPO and CT ordered. Await CT results. Surgery Progress Note: Obj - Vital signs Vital signs: Vital Signs - Most Recent Temp Pulse Resp BP Pulse Ox 97.4 F L 70 16 123/70 100 08/10/17 15:54 08/10/17 15:54 08/10/17 15:54 08/10/17 18:03 08/10/17 15:54 Surgery Progress Note: Results - Labs Result Diagrams: 08/09/17 04:38 08/09/17 04:38
[2017-08-10] MEDS: Atorvastatin Calcium 20 MG TAB PO SCH (20:48)
[2017-08-10] MEDS: Enoxaparin Sodium 40 MG/0.4 ML SYRINGE SC SCH (20:48)
--- NOTE | 2017-08-10 21:13 | CT ---
ABDOMEN AND PELVIS CT WITHOUT CONTRAST: CLINICAL HISTORY: Abdominal pain. Clinical concern for bowel obstruction/ileus. FINDINGS: There is bibasilar pleural-based density, indicating a small volume of pleural fluid partially visual ized with adjacent consolidation. There are distended loops of air and fluid filled small bowel, whi ch lead to a site of enterocolonic anastomosis at the right mid abdomen. 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 This could relate to a recent procedure, in the correct clinical context. Correlate clinic ally in this regard. There is no hydronephrosis of the kidneys. No focal hepatic or splenic lesion. No peripancreatic in flammation or evidence of discrete adrenal lesion. There is abdominal suture material at the midline of the ventral abdominal wall. There is scattered colonic diverticulosis. Diffuse osseous degenerative change present. IMPRESSION: The bowel is incompletely assessed by noncontrast technique. Abnormal distention of fluid and air-los led bowel. This does approximate a site of intracolonic anastomosis at the right mid abdomen. There fore, this may relate to mechanical obstruction from anastomotic edema, or stricture (depending on ballard rgical timeframe). Correlate clinically. Additional details are as described above. POS: [facility]
--- NOTE | 2017-08-11 02:01 | PDOC.PN ---
- Subjective Encounter Start Date: 08/10/17 Encounter Start Time: 16:00 Subjective: f/u for abdominal distention and post-operative ileus managed -: conservatively with dietary modifications, ambulation and stool softeners -: Feels ok overall but abd feels full. No N/V. Clear liquids currently - Objective Resuscitation Status: Resuscitation Status FULL:Full Resuscitation MAR Reviewed: Yes Vital Signs & Weight: Vital Signs (12 hours) Temp Pulse Resp BP BP Pulse Ox 08/11/17 00:00 98.4 F 81 16 150/69 H 100 08/10/17 20:00 98.3 F 71 16 08/10/17 19:57 98.3 F 71 16 162/75 H 98 08/10/17 18:03 123/70 08/10/17 15:54 97.4 F L 70 16 163/76 H 100 Weight Weight 212 lb 3.2 oz I&O: 08/09/17 08/10/17 08/11/17 06:59 06:59 06:59 Intake Total 4420 4600 Output Total 1505 2150 1100 Balance 2915 2450 -1100 Result Diagrams: 08/09/17 04:38 08/09/17 04:38 Additional Labs: Laboratory Tests 08/07/17 08/08/17 07:45 07:21 Creatinine 1.58 H 1.89 H Radiology Reviewed by me: Yes (KUB - +SBO) Phys Exam - Physical Examination Constitutional: NAD HEENT: PERRLA, moist MMs, sclera anicteric, oral pharynx no lesions Neck: no nodes, no JVD, supple Respiratory: no wheezing, no rales, no rhonchi, clear to auscultation bilateral S1, S2 Cardiovascular: RRR, no significant murmur, no rub, gallop distended, mild TTP diffusely, midline incision intact Gastrointestinal: positive bowel sounds Musculoskeletal: no edema, pulses present Neurological: non-focal, normal sensation, moves all 4 limbs Psychiatric: normal affect, A&O x 3 Skin: no rash, normal turgor, cap refill <2 seconds Dx/Plan (1) Postoperative ileus Code(s): K91.89 - OTH POSTPROCEDURAL COMPLICATIONS AND DISORDERS OF DGSTV SYS; K56.7 - ILEUS, UNSPECIFIED Status: Acute Comment: slow to clinically improve and KUB showing evidence for SBO, clear liquids, ambulate in hallways, encourage BM's (2) Adenocarcinoma, colon Code(s): C18.9 - MALIGNANT NEOPLASM OF COLON, UNSPECIFIED Status: Chronic Comment: s/p hemicolectomy, monitor clinical status, ? anastomotic edema with mech obstruction (3) Atrial flutter Code(s): I48.92 - UNSPECIFIED ATRIAL FLUTTER Status: Acute Comment: SR currently (4) CKD (chronic kidney disease) stage 3, GFR 30-59 ml/min Code(s): N18.3 - CHRONIC KIDNEY DISEASE, STAGE 3 (MODERATE) Status: Chronic Comment: Stable currently, avoid nephrotoxic meds and contrast media - Plan plan discussed w/ family, PT/OT, social research assistant, out of bed/ambulate, DVT proph w/SCDs Overall stable -: Continue serial abd exams -: General surgery monitoring -: Continue IV NS 125ml/h -: Continue Protonix 40mg daily * .
[2017-08-11] MEDS: traMADol HCl 50 MG TAB PO PRN ×2 (03:02→22:22)
[2017-08-11] MEDS: Sodium Chloride 0.9% 1,000 ML IV SCH ×3 (05:15→19:29)
[2017-08-11 06:04] LABS: #Eosinphils 0.1 thou/uL (0.0-0.7); #Lymphocytes 1.1 thou/uL (1.20-3.40); #Monocytes 0.9 thou/uL (0.11-0.59); #Neutrophils 4.6 thou/uL (1.40-6.50); %Basophils 0.1 % (0.0-1.0); %Eosinophils 2.1 % (0.0-10.0); %Lymphocytes 16.6 % (21.0-51.0); %Monocytes 13.7 % (0.0-10.0); %Neutrophils 67.4 % (42.0-75.0); Hemoglobin 8.2 g/dL (14.0-18.0); Mean Corpuscular HGB CONC 33.7 g/dL (32.0-36.0); Mean Corpuscular Hemoglobin 26.6 pg (27.0-31.0); Mean Corpuscular Volume 78.8 fl (80.0-94.0); Mean Platelet Volume 7.8 fL (7.4-10.4); Platelet Count 274 thou/uL (130-400); RBC Distribution Width 15.6 % (11.5-14.5); Red Blood Cell (RBC) Count 3.07 mill/uL (4.70-6.10); White Blood Cell (WBC) Count 6.9 thou/uL (4.8-10.8)
[2017-08-11 06:30] LABS: ALT (SGPT) 20 U/L (8-55); AST (SGOT) 26 U/L (5-34); Albumin 2.7 g/dL (3.4-4.8); Alkaline Phosphatase 29 U/L (40-150); Anion Gap 8 mmol/L (10-20); BUN (Urea Nitrogen) 7 mg/dL (8.4-25.7); Bilirubin, Total 0.8 mg/dL (0.2-1.2); Calc. Creatinine Clearance 75 mL/min (70-130); Calcium 7.9 mg/dL (7.8-10.44); Carbon Dioxide 21 mmol/L (23-31); Chloride 110 mmol/L (98-107); Estimated GFR-MDRD 80; Globulin 2.3 g/dL (2.4-3.5); Glucose 82 mg/dL (83-110); Magnesium 1.8 mg/dL (1.6-2.6); Phosphorus 3.5 mg/dL (2.3-4.7); Potassium 3.5 mmol/L (3.5-5.1); Sodium 135 mmol/L (136-145)
[2017-08-11] MEDS: Carvedilol 6.25 MG TAB PO SCH ×2 (07:52→17:56)
[2017-08-11] MEDS: Finasteride 5 MG TAB PO SCH (07:52)
[2017-08-11] MEDS: Pantoprazole 40 MG VIAL IVP SCH (07:52)
[2017-08-11] MEDS: Tamsulosin HCl 0.4 MG CAP PO SCH ×2 (07:52→20:13)
--- NOTE | 2017-08-11 12:25 | RAD ---
TWO VIEWS OF ABDOMEN: DATE: 08/11/17. COMPARISON: 08/10/17. HISTORY: Small bowel obstruction. FINDINGS/IMPRESSION: There is gaseous distention of small bowel throughout the abdomen/pelvis with numerous air fluid leve ls since 08/10/17 CT exam. This could be related to ileus and/or a small bowel obstruction. POS: [facility]
[2017-08-11] MEDS ORDERED: Potassium Chloride 20 MEQ/100 ML PREMIX BAG IVPB SCH ×2 (12:45→15:00)
--- NOTE | 2017-08-11 19:27 | PDOC.PN ---
- Subjective Encounter Start Date: 08/11/17 Encounter Start Time: 19:10 Subjective: f/u for SBO with KUB confirming. Conservative mgmt, NPO and -: ambulating. Pt states he had 3 BM's today. - Objective Resuscitation Status: Resuscitation Status FULL:Full Resuscitation MAR Reviewed: Yes Vital Signs & Weight: Vital Signs (12 hours) Temp Pulse Resp BP BP Pulse Ox 08/11/17 17:56 123/70 08/11/17 15:23 98.3 F 69 16 173/56 H 97 08/11/17 11:14 97.8 F 70 18 147/69 H 98 08/11/17 08:00 98.2 F 69 16 08/11/17 07:52 123/70 08/11/17 07:38 98.2 F 69 16 165/74 H 97 Weight Weight 212 lb 3.2 oz I&O: 08/10/17 08/11/17 08/12/17 06:59 06:59 06:59 Intake Total 4600 1980 Output Total 2150 2400 950 Balance 2450 -420 -950 Result Diagrams: 08/11/17 05:26 08/11/17 05:26 Radiology Reviewed by me: Yes (ABD x-ray - + SBO) Phys Exam - Physical Examination Constitutional: NAD HEENT: PERRLA, moist MMs, sclera anicteric, oral pharynx no lesions Neck: no nodes, no JVD, supple, full ROM Respiratory: no wheezing, no rales, no rhonchi, clear to auscultation bilateral S1, S2 Cardiovascular: RRR, no significant murmur, no rub, gallop distended, mild TTP, BS +, midline incision intact Musculoskeletal: no edema, pulses present Neurological: non-focal, normal sensation, moves all 4 limbs Psychiatric: normal affect, A&O x 3 Skin: no rash, normal turgor, cap refill <2 seconds Dx/Plan (1) Postoperative ileus Code(s): K91.89 - OTH POSTPROCEDURAL COMPLICATIONS AND DISORDERS OF DGSTV SYS; K56.7 - ILEUS, UNSPECIFIED Status: Acute Comment: slow to clinically improve and KUB showing evidence for SBO, clear liquids, ambulate in hallways, encourage BM's (2) Adenocarcinoma, colon Code(s): C18.9 - MALIGNANT NEOPLASM OF COLON, UNSPECIFIED Status: Chronic Comment: s/p hemicolectomy, monitor clinical status, ? 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
[2017-08-11] MEDS: Enoxaparin Sodium 40 MG/0.4 ML SYRINGE SC SCH (20:13)
[2017-08-11] MEDS: Atorvastatin Calcium 20 MG TAB PO SCH (20:13)
--- NOTE | 2017-08-11 21:33 | PDOC.GSPN ---
Surgery Progress Note: Subj - Subjective Narrative: Mr. Cooper feels better today after being nothing by mouth since yesterday afternoon. He had a couple of good bowel movements this morning and passed a little gas while he was having his bowel movements. His abdominal films still show fairly notable distention of his small bowel however. Abdomen is still quite distended although not as tense as it was yesterday. Bowel sounds are quite active. Assessment/plan: CT yesterday showed distention of the small bowel compared to the colon with suggestion of a transition point at the anastomosis. This is likely due to edema as there was liquid stool and gas be on the anastomosis. Since he was not nauseated I made him nothing by mouth but not place an NG tube. Symptomatically he has improved since yesterday but his small intestine is still quite dilated so I am going to give him another day of bowel rest before resuming his diet. His potassium is slightly low so I replaced this. His H&H has drifted down somewhat but he is asymptomatic. We will follow this for now. Surgery Progress Note: Obj - Vital signs Vital signs: Vital Signs - Most Recent Temp Pulse Resp BP Pulse Ox 98.3 F 67 18 162/73 H 97 08/11/17 20:00 08/11/17 20:00 08/11/17 20:00 08/11/17 20:00 08/11/17 20:00 Surgery Progress Note: Results - Labs Result Diagrams: 08/11/17 05:26 08/11/17 05:26
[2017-08-12] MEDS: Sodium Chloride 0.9% 1,000 ML IV SCH ×2 (06:05→17:47)
[2017-08-12] MEDS: Carvedilol 6.25 MG TAB PO SCH ×2 (09:28→17:45)
[2017-08-12] MEDS: Tamsulosin HCl 0.4 MG CAP PO SCH ×2 (09:28→20:28)
[2017-08-12] MEDS: Finasteride 5 MG TAB PO SCH (09:28)
[2017-08-12] MEDS: Pantoprazole 40 MG VIAL IVP SCH (09:28)
--- NOTE | 2017-08-12 10:41 | PDOC.GSPN ---
Surgery Progress Note: Subj - Subjective Narrative: Patient is feeling good today. No nausea. He does not feel bloated and has not had any effect crampy abdominal pain. He had another bowel movement this morning and passed little gas. Afebrile vital signs okay. KUB looks better although he still has some mild dilation of the small bowel loops. Abdomen is still distended but soft and nontender. Bowel sounds are normal. Assessment/plan: Ileus versus partial small bowel obstruction due to edema at the anastomosis. Clinically resolving. I'm putting him back on a clear liquid diet, with regular ensure supplements as tolerated. We tried him on the ensure clear that he can't tolerate the taste. Surgery Progress Note: Obj - Vital signs Vital signs: Vital Signs - Most Recent Temp Pulse Resp BP Pulse Ox 98.1 F 65 15 162/75 H 98 08/12/17 08:22 08/12/17 08:22 08/12/17 08:22 08/12/17 09:28 08/12/17 04:05 Surgery Progress Note: Results - Labs Result Diagrams: 08/11/17 05:26 08/11/17 05:26
--- NOTE | 2017-08-12 10:49 | RAD ---
ABDOMEN TWO VIEWS: History: Distention. Comparison: 08-11-17 FINDINGS\IMPRESSION: Re-demonstration of multiple air filled small bowel loops which have associated distention and differ ential air fluid levels. Paucity of gas in the presumed left hemicolon. Concern for a partial obstruc tive process versus ileus. POS: [facility]
--- NOTE | 2017-08-12 17:28 | PDOC.PN ---
- Subjective Encounter Start Date: 08/12/17 Encounter Start Time: 17:20 Subjective: f/u for SBO, ileus post-operatively slow to improve. + BM's and no -: N/V. Ambulating without difficulty. Started on clear liquids again. - Objective Resuscitation Status: Resuscitation Status FULL:Full Resuscitation MAR Reviewed: Yes Vital Signs & Weight: Vital Signs (12 hours) Temp Pulse Resp BP BP Pulse Ox 08/12/17 15:37 98.1 F 70 14 166/79 H 96 08/12/17 12:44 98.1 F 73 18 159/69 H 98 08/12/17 09:28 162/75 H 08/12/17 08:22 98.1 F 65 15 Weight Admit Weight 212 lb 6 oz Weight 212 lb 3.2 oz I&O: 08/11/17 08/12/17 08/13/17 06:59 06:59 06:59 Intake Total 1980 1540 400 Output Total 2400 1725 Balance -420 -185 400 Result Diagrams: 08/11/17 05:26 08/11/17 05:26 Radiology Reviewed by me: Yes (KUB - partial SBO/ileus) Phys Exam - Physical Examination Constitutional: NAD HEENT: PERRLA, moist MMs, sclera anicteric, oral pharynx no lesions Neck: no nodes, no JVD, supple, full ROM Respiratory: no wheezing, no rales, no rhonchi, clear to auscultation bilateral S1, S2 Cardiovascular: RRR, no significant murmur, no rub, gallop distention Gastrointestinal: soft, non-tender, positive bowel sounds Musculoskeletal: no edema, pulses present Neurological: non-focal, normal sensation, moves all 4 limbs Psychiatric: normal affect, A&O x 3 Skin: no rash, normal turgor, cap refill <2 seconds Dx/Plan (1) Postoperative ileus Code(s): K91.89 - OTH POSTPROCEDURAL COMPLICATIONS AND DISORDERS OF DGSTV SYS; K56.7 - ILEUS, UNSPECIFIED Status: Acute Comment: slow to clinically improve and KUB showing evidence for partial SBO/ileus, clear liquids, ambulate in hallways, encourage BM's (2) Adenocarcinoma, colon Code(s): C18.9 - MALIGNANT NEOPLASM OF COLON, UNSPECIFIED Status: Chronic Comment: s/p hemicolectomy, monitor clinical status, ? 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
[2017-08-12] MEDS: Atorvastatin Calcium 20 MG TAB PO SCH (20:28)
[2017-08-12] MEDS: Enoxaparin Sodium 40 MG/0.4 ML SYRINGE SC SCH (20:28)
[2017-08-13] MEDS: Sodium Chloride 0.9% 1,000 ML IV SCH ×2 (01:40→12:50)
[2017-08-13] MEDS: Carvedilol 6.25 MG TAB PO SCH ×2 (08:09→16:13)
[2017-08-13] MEDS: Tamsulosin HCl 0.4 MG CAP PO SCH ×2 (08:10→20:22)
[2017-08-13] MEDS: Finasteride 5 MG TAB PO SCH (08:10)
[2017-08-13] MEDS: Pantoprazole 40 MG VIAL IVP SCH (08:10)
--- NOTE | 2017-08-13 08:30 | PDOC.GSPN ---
Surgery Progress Note: Subj - Subjective Patient reports: tolerating liquids well Narrative: Has had multiple bowel movements. Passing flatus Surgery Progress Note: Obj - Vital signs Vital signs: Vital Signs - Most Recent Temp Pulse Resp BP Pulse Ox 98.9 F 75 16 168/79 H 99 08/13/17 08:00 08/13/17 08:00 08/13/17 08:00 08/13/17 08:09 08/13/17 08:00 - Physical Exam General: no distress Respiratory: clear to auscultation Abdomen: soft, distended (but positive bowel sounds) Surgery Progress Note: Results - Labs Result Diagrams: 08/11/17 05:26 08/11/17 05:26 Surgery Progress Note: A/P - Problem (1) Colonic mass Current Visit: Yes Code(s): K63.9 - DISEASE OF INTESTINE, UNSPECIFIED Status : Acute Assessment and Plan: T3, N0, Mx right colon cancer. Ileus resolving. Advance to GI soft diet.
--- NOTE | 2017-08-13 18:13 | PDOC.CTH ---
Cardiology Progress Note - Subjective Doing better. Tolerating diet better, advancing today to solids. - Objective Vital Signs Temp Pulse Resp BP BP Pulse Ox 08/13/17 16:13 159/66 H 08/13/17 15:29 98.5 F 70 18 159/66 H 98 08/13/17 11:49 98.1 F 96 18 168/74 H 94 L 08/13/17 08:15 98.9 F 75 16 99 08/13/17 08:09 168/79 H 08/13/17 08:00 98.9 F 75 16 168/79 H 99 Admit Weight 212 lb 6 oz Weight 212 lb 3.2 oz 08/12/17 08/13/17 08/14/17 06:59 06:59 06:59 Intake Total 1540 4150 2300 Output Total 1725 1250 1650 Balance -185 2900 650 - Physical Examination General/Neuro: alert & oriented x3, NAD Lungs: CTA, unlabored respirations Heart: other: (Irregular) Abdomen: NT/ND Extremities: other: (no edema) - Labs Result Diagrams: 08/11/17 05:26 08/11/17 05:26 Troponin/CKMB CK-MB (CK-2) 0.6 ng/mL (0-6.6) 08/01/17 15:46 Troponin I 0.021 ng/mL (< 0.028) 08/01/17 15:46 - Assessment/Plan 1. Paroxysmal afib. 2. Anemia due to GI bleed. 3. CAD 4. HTN 5. CKD stage 3 6. Hyperlipidemia. 7. Adenocarcinoma of the colon. 8. S/P Right Hemicolectomy. PLAN: - Continue current meds for now. - I spoke with Dr Espinoza and from surgical perspective it should be safe to re start Eliquis at any time now that he is tolerating PO. Will plan on doing this closer to discharge. .
--- NOTE | 2017-08-13 19:07 | PDOC.PN ---
- Subjective Encounter Start Date: 08/13/17 Encounter Start Time: 18:45 Subjective: f/u for post-op ileus/SBO resolving. + multiple BM's. Tolerating soft -: mech diet. States some fullness to abd but no pain or emesis. -: Ambulating in halls. - Objective Resuscitation Status: Resuscitation Status FULL:Full Resuscitation MAR Reviewed: Yes Vital Signs & Weight: Vital Signs (12 hours) Temp Pulse Resp BP BP Pulse Ox 08/13/17 16:13 159/66 H 08/13/17 15:29 98.5 F 70 18 159/66 H 98 08/13/17 11:49 98.1 F 96 18 168/74 H 94 L 08/13/17 08:15 98.9 F 75 16 99 08/13/17 08:09 168/79 H 08/13/17 08:00 98.9 F 75 16 168/79 H 99 Weight Admit Weight 212 lb 6 oz Weight 212 lb 3.2 oz I&O: 08/12/17 08/13/17 08/14/17 06:59 06:59 06:59 Intake Total 1540 4150 2300 Output Total 1725 1250 1650 Balance -185 2900 650 Result Diagrams: 08/11/17 05:26 08/11/17 05:26 Phys Exam - Physical Examination Constitutional: NAD HEENT: PERRLA, moist MMs, sclera anicteric, oral pharynx no lesions Neck: no nodes, no JVD, supple, full ROM Respiratory: no wheezing, no rales, no rhonchi, clear to auscultation bilateral S1, S2 Cardiovascular: no significant murmur, no rub, gallop, irregular distended midline scar intact Gastrointestinal: non-tender, positive bowel sounds Musculoskeletal: no edema, pulses present Neurological: non-focal, normal sensation, moves all 4 limbs Psychiatric: normal affect, A&O x 3 Skin: no rash, normal turgor, cap refill <2 seconds Dx/Plan (1) Postoperative ileus Code(s): K91.89 - OTH POSTPROCEDURAL COMPLICATIONS AND DISORDERS OF DGSTV SYS; K56.7 - ILEUS, UNSPECIFIED Status: Acute Comment: Resolving, soft mech diet , encourage continued ambulation (2) Adenocarcinoma, colon Code(s): C18.9 - MALIGNANT NEOPLASM OF COLON, UNSPECIFIED Status: Chronic Comment: s/p hemicolectomy, monitor clinical status, ? 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
[2017-08-13] MEDS: Atorvastatin Calcium 20 MG TAB PO SCH (20:22)
[2017-08-13] MEDS: Enoxaparin Sodium 40 MG/0.4 ML SYRINGE SC SCH (20:22)
[2017-08-13] MEDS: hydrALAZINE 20 MG/ML VIAL SLOW IVP PRN (23:51)
--- NOTE | 2017-08-14 07:20 | PDOC.GSPN ---
Surgery Progress Note: Subj - Subjective Patient reports: tolerating a regular diet Surgery Progress Note: Obj - Vital signs Vital signs: Vital Signs - Most Recent Temp Pulse Resp BP Pulse Ox 97.9 F 85 20 150/61 H 98 08/14/17 03:35 08/14/17 03:35 08/14/17 03:35 08/14/17 03:35 08/14/17 03:35 - Physical Exam General: no distress Respiratory: clear to auscultation Abdomen: soft, non tender, nondistended, positive bowel sounds Wound: healing well Surgery Progress Note: Results - Labs Result Diagrams: 08/11/17 05:26 08/11/17 05:26 Lab results: Laboratory Results - last 24 hr 08/13/17 20:53 POC Glucose 123 H Surgery Progress Note: A/P - Problem (1) Colonic mass Current Visit: Yes Code(s): K63.9 - DISEASE OF INTESTINE, UNSPECIFIED Status : Acute - Plan Plan: Tolerated GI soft diet. I think he is ready for discharge. Ok to discharge from my standpoint. I will see him in clinic next week and arrange oncology referral as outpatient.
[2017-08-14] MEDS: Finasteride 5 MG TAB PO SCH (09:28)
[2017-08-14] MEDS: Carvedilol 6.25 MG TAB PO SCH (09:28)
[2017-08-14] MEDS: Tamsulosin HCl 0.4 MG CAP PO SCH (09:29)
[2017-08-14 11:57] VITALS: BP 162/76; TEMP 98.8
[2017-08-14] MEDS ORDERED: Rivaroxaban 10 MG TAB PO SCH (12:00)
--- NOTE | 2017-08-14 12:27 | PDOC.CTH ---
Cardiology Progress Note - Subjective He is doing much better. No new issues. - Objective Vital Signs Temp Pulse Resp BP BP Pulse Ox 08/14/17 11:56 98.8 F 70 18 162/76 H 99 08/14/17 09:28 174/80 H 08/14/17 08:00 99.0 F 79 18 93 L 08/14/17 07:57 99.0 F 79 18 160/66 H 93 L 08/14/17 03:35 97.9 F 85 20 150/61 H 98 08/14/17 01:27 162/68 H Admit Weight 212 lb 6 oz Weight 212 lb 3.2 oz 08/13/17 08/14/17 08/15/17 06:59 06:59 06:59 Intake Total 4150 3230 Output Total 1250 2875 Balance 2900 355 - Physical Examination General/Neuro: alert & oriented x3, NAD Neck: no JVD present Lungs: CTA, unlabored respirations Heart: RRR Abdomen: NT/ND Extremities: + edema B (trace) - Labs Result Diagrams: 08/11/17 05:26 08/11/17 05:26 Troponin/CKMB CK-MB (CK-2) 0.6 ng/mL (0-6.6) 08/01/17 15:46 Troponin I 0.021 ng/mL (< 0.028) 08/01/17 15:46 - Assessment/Plan 1. Paroxysmal afib. 2. Anemia due to GI bleed. 3. CAD 4. HTN 5. CKD stage 3 6. Hyperlipidemia. 7. Adenocarcinoma of the colon. 8. S/P Right Hemicolectomy. PLAN: - Restart all home meds including anti hypertensives. - Restart Xarelto at 20 mg Qhs, first dose this evening at home. - May discharge any time from cardiac perspective. - Follow up in 1 month in office.
--- NOTE | 2017-08-15 14:30 | DIS ---
DATE OF ADMISSION: 08/01/2017 DATE OF DISCHARGE: 08/14/2017 PRIMARY CARE PHYSICIAN: IVAN Heard ADMITTING AND DISCHARGE DIAGNOSES: 1. Symptomatic anemia secondary to invasive adenocarcinoma of the colon, status post right hemicolec dale. 2. Postoperative ileus. 3. Atrial fibrillation on anticoagulation with Xarelto and history of stroke. 4. Coronary artery disease. 5. Gastroesophageal reflux disease. 6. Hypertension. 7. Chronic kidney disease stage 3. HOSPITAL COURSE: The patient is an 82-year-old gentleman with a history of CVA, with a history of at rial fibrillation on Xarelto, hypertension, hyperlipidemia, GERD, BPH who presents from PCP's office with hemoglobin of 4.8. The patient had actually been having dark tarry stools and was feeling weak and dizzy. An EGD was done which was negative. A colonoscopy was then pursued which found a large c entimeter of mass with a broad base, mucus cap and slow oozing of blood which is located in the ascen ding colon and directly across from the ileocecal valve. This was biopsied. In the meantime, antico agulation was held. Biopsies did come back with the diagnosis of invasive adenocarcinoma, moderately differentiated with tumor invading through the muscularis propria into the subserosal adipose tissue , but not present at the serosal surface. There was no lymphovascular invasion. All 14 pericolonic nodes were negative for metastatic carcinoma. General Surgery was consulted along with Cardiology gi gasper we are holding anticoagulation. On 08/06/2017, the patient underwent a laparoscopic hand-assiste d right colectomy. Afterwards, he did develop a postop ileus. He was treated conservatively. He di d have bowel movements and was eventually able to get off of IV fluids and advance his diet. Before discharge, his hemoglobin had been fairly stable and he was restarted on his Xarelto right before dis charge. He was cleared to discharge with Cardiology. Of note, his aspirin was discontinued. His do se of beta blockers was lowered, but all his other cardiac medications were restarted per Dr. Campbell. The patient will have a follow up with Dr. Dannie Espinoza from Surgery as well as Dr. Campbell. At that time of followup, Dr. Espinoza will refer the patient to Oncology. DISCHARGE PHYSICAL EXAMINATION: VITAL SIGNS: Temperature 99, pulse 79, respirations 18, blood pressure 160/66. GENERAL: Awake, alert, oriented in no acute distress. HEENT: Mucous membranes are moist. HEART: Regular rate and rhythm, no murmurs, rubs or gallops. LUNGS: Clear to auscultation bilaterally. ABDOMEN: Nontender, nondistended. Bowel sounds present. EXTREMITIES: No cyanosis, clubbing or edema. DISCHARGE MEDICATIONS: 1. Lipitor 20 mg p.o. at bedtime. 2. Calcium carbonate 1 tab p.o. b.i.d. 3. Coreg 6.25 mg p.o. b.i.d. 4. Cholecalciferol 1 tab p.o. daily. 5. Ferrous sulfate 1 tab p.o. daily. 6. Finasteride 5 mg p.o. q. day. 7. Losartan 100 mg p.o. q. day. 8. Nifedipine 60 mg p.o. q. day. 9. Protonix 40 mg p.o. q. day. 10. Xarelto 20 mg p.o. at bedtime. 11. Flomax 0.4 mg p.o. b.i.d. DISCHARGE FOLLOWUP: The patient will follow up with PCP within 1 week of discharge. He will follow up with Dr. Dannie Espinoza is surgery within a week as well at the time, he will be referred to [facility]. He will also need to follow up with Dr. Campbell in office within a month.
--- NOTE | 2017-08-15 18:34 | PDOC.EVN ---
Event Note - Event Note Event Note: discharge summary dictated [id number]
== END 2017-08-14 15:30 | disposition home or self-care (01) | DRG 329 ==
LOC: ERS 19:15 → T4-B 08-01 00:12 → 2NO 08-01 16:12 → SURG A 08-06 13:41
PROVIDERS: ADMIT Internal Medicine; ATTEND Internal Medicine
PROC: 0DJ08ZZ Inspection of Upper Intestinal Tract, Via Natural or Artificial Opening Endoscopic (ICD-10-PCS; 2017-08-02)
PROC: 0DBK8ZX Excision of Ascending Colon, Via Natural or Artificial Opening Endoscopic, Diagnostic (ICD-10-PCS; 2017-08-03)
PROC: 0DTK0ZZ Resection of Ascending Colon, Open Approach (ICD-10-PCS; principal; 2017-08-05)
DX: K92.2 Gastrointestinal hemorrhage, unspecified (principal); A41.9 Sepsis, unspecified organism; C18.9 Malignant neoplasm of colon, unspecified; K91.89 Other postprocedural complications and disorders of digestive system; K56.609 Unspecified intestinal obstruction, unspecified as to partial versus complete obstruction; D62 Acute posthemorrhagic anemia; N17.9 Acute kidney failure, unspecified; C18.0 Malignant neoplasm of cecum; I48.92 Unspecified atrial flutter; I47.1 Supraventricular tachycardia; I48.0 Paroxysmal atrial fibrillation; K92.1 Melena; I12.9 Hypertensive chronic kidney disease with stage 1 through stage 4 chronic kidney disease, or unspecified chronic kidney disease; N18.3 Chronic kidney disease, stage 3 (moderate); E87.5 Hyperkalemia; I25.10 Atherosclerotic heart disease of native coronary artery without angina pectoris; K63.9 Disease of intestine, unspecified; N40.0 Benign prostatic hyperplasia without lower urinary tract symptoms; Z79.01 Long term (current) use of anticoagulants; Z86.73 Personal history of transient ischemic attack (TIA), and cerebral infarction without residual deficits; E87.6 Hypokalemia; J40 Bronchitis, not specified as acute or chronic; M10.9 Gout, unspecified; K21.9 Gastro-esophageal reflux disease without esophagitis; Z79.82 Long term (current) use of aspirin; Z95.5 Presence of coronary angioplasty implant and graft; E11.22 Type 2 diabetes mellitus with diabetic chronic kidney disease
CPT/HCPCS: 36415; 36416; 36430; 71046; 74019; 74176; 80048; 80053; 80061; 81001; 82274; 82553; 82565; 83036; 83735; 83880; 84100; 84443; 84484; 85025; 85379; 85610; 85730; 86850; 86900; 86901; 87040; 87086; 88305; 88309; 93005; 93010; 94640; 96365; 96376; A4216; C9113; J0131; J0360; J0670; J0694; J0696; J1100; J1160; J1650; J1956; J2001; J2250; J2550; J2704; J3010; J3480; J7050; J7620; P9016; Q0162

== ENCOUNTER 2018-01-02 09:11 | Inpatient (IN) | payer MEDICARE ==
[2018-01-02 10:47] LABS: #Lymphocytes 1.1 thou/uL (1.20-3.40); #Monocytes 0.6 thou/uL (0.11-0.59); #Neutrophils 5.4 thou/uL (1.40-6.50); %Basophils 0.2 % (0.0-1.0); %Eosinophils 0.2 % (0.0-10.0); %Lymphocytes 15.1 % (21.0-51.0); %Monocytes 8.2 % (0.0-10.0); %Neutrophils 76.4 % (42.0-75.0); Hemoglobin 13.3 g/dL (14.0-18.0); Mean Corpuscular HGB CONC 32.9 g/dL (32.0-36.0); Mean Platelet Volume 8.1 fL (7.4-10.4); Platelet Count 242 thou/uL (130-400); RBC Distribution Width 14.5 % (11.5-14.5); Red Blood Cell (RBC) Count 4.74 mill/uL (4.70-6.10)
[2018-01-02 10:57] LABS: ALT (SGPT) 21 U/L (8-55); AST (SGOT) 14 U/L (5-34); Albumin 4.2 g/dL (3.4-4.8); Alkaline Phosphatase 57 U/L (40-150); Anion Gap 11 mmol/L (10-20); BUN (Urea Nitrogen) 17 mg/dL (8.4-25.7); Bilirubin, Total 1.6 mg/dL (0.2-1.2); Calc. Creatinine Clearance 0 mL/min (70-130); Calcium 9.8 mg/dL (7.8-10.44); Carbon Dioxide 27 mmol/L (23-31); Chloride 104 mmol/L (98-107); Estimated GFR-MDRD 64; Globulin 3.8 g/dL (2.4-3.5); Glucose 122 mg/dL (83-110); Lipase 10 U/L (8-78); Potassium 4.3 mmol/L (3.5-5.1); Sodium 138 mmol/L (136-145)
[2018-01-02] MEDS ORDERED: Mag-Al 1200 mg/1200 mg/30 ML UDCUP ONE (11:37)
[2018-01-02] MEDS ORDERED: Lidocaine Viscous Sol 2% 15 ml UD Cup ONE (11:37)
[2018-01-02] MEDS ORDERED: Dicyclomine 20 MG TAB ONE (11:37)
--- NOTE | 2018-01-02 11:45 | RAD ---
ABDOMEN 2 VIEWS: Date: 01/02/18 HISTORY: 82-year-old male with history of bloating and epigastric pain. COMPARISON: 08/12/17. FINDINGS: There are dilated small bowel loops with some air fluid levels, evidence for small bowel obstruction. There is minimal gas and fecal material in the rectum and right colon. Appearance does not appear to be significantly changed from the prior exam. IMPRESSION: Evidence for small bowel obstruction with little change from prior exam. No free intraperitoneal air. No overt calculus. POS: [facility]
--- NOTE | 2018-01-02 11:51 | RAD ---
CHEST 1 VIEW: Date: 01/02/18 HISTORY: Abdominal pain. COMPARISON: Chest radiograph dated 08/01/17. FINDINGS: Heart size upper limits of normal. Loop recording device noted. Mild blunting left lateral costophrenic sulcus. No acute osseous abnormality. IMPRESSION: 1. Mild cardiomegaly. 2. Small left pleural effusion. POS: [facility]
[2018-01-02] MEDS ORDERED: Ondansetron ODT 8 MG TAB ONE (12:24)
[2018-01-02] MEDS ORDERED: Ondansetron HCl/PF 4 MG/2 ML Vial ONE (12:39)
[2018-01-02] MEDS ORDERED: ISOVUE-370 76%-LOCM 1 ML ONE (13:18)
[2018-01-02] MEDS ORDERED: Promethazine HCl 25 MG/ML VIAL ONE (14:06)
--- NOTE | 2018-01-02 15:33 | CT ---
CT ABDOMEN WITH CONTRAST CT PELVIS WITH CONTRAST: COMPARISON: 08/10/2017. HISTORY: Abdominal distention. Evaluate for bowel obstruction. TECHNIQUE: An abdomen CT was performed with IV and oral contrast. Coronal reformatted images are submitted. Co miles reformatted images are submitted. FINDINGS: ABDOMEN CT: Chronic changes in the lung bases. Heart is enlarged. No significant pericardial fluid. The descen ding thoracic aorta and abdominal aorta have a normal caliber. No periaortic fat stranding. Unremarkable gallbladder. Intra- and extrahepatic portal vein is patent. There is nonspecific perihepatic fluid within an atte nuation coefficient of 27 Hounsfield suggesting complex fluid. Spleen, pancreas, and adrenal glands have appropriate enhancement. Nonenlarged gastrohepatic lymph nodes. No retrocrural or periportal lymphadenopathy. No mesenteric mass, lymphadenopathy, or free air. There is fluid tracking along both paracolic gutte rs, right greater than left. Symmetric enhancement of the kidneys. Bilaterally, no obstructive uropathy. Gastric mucosa and proximal small bowel loops are unremarkable. There are distended fluid-filled loo ps of mid to distal small bowel. The anastomosis of the right hemicolon and terminal ileum demonstra te some swelling of vessels suggesting an internal hernia. The terminal ileum and distal ileum appea r to be decompressed. There is diverticulosis. No evidence of diverticulitis in the residual hemico murray. PELVIC CT: Urinary bladder is slightly prominent. No pelvic mass, lymphadenopathy, free air, or free fluid. IMPRESSION: 1. Distal small bowel obstruction secondary to an internal hernia in the right upper quadrant. 2. Right hemicolectomy. 3. Diverticulosis. No evidence of diverticulitis. The results of the study were discussed with Dr. Li 12/23/2017 at 3:05 p.m. CODE AYANA POS: [facility]
--- NOTE | 2018-01-02 16:42 | RAD ---
PORTABLE CHEST 01/02/18 PROVIDED CLINICAL HISTORY: NG tube placement. Comparison is made with the examination performed earlier same date. FINDINGS/IMPRESSION: Interval placement of an enteric catheter, the distal aspects of which are not well visualized. Enter ic catheter is not definitely seen overlying the mid to distal chest. Examination appears otherwise u nchanged with respect to prior. POS: [facility]
--- NOTE | 2018-01-02 17:01 | CON ---
DATE OF CONSULTATION: 01/02/2018 HISTORY OF PRESENT ILLNESS: Mr. Cooper is well known to me with a history of bleeding hepatic flexur e of colon polyp, underwent urgent laparoscopic hand-assist right colectomy by me back in July of this year. Postop course was uneventful. Now presents with a 2-day history of abdominal distention asso ciated with mild to moderate pain. No vomiting. He has not had any obstructions or issues since raymundo candy. CT scan shows evidence of internal hernia and small-bowel obstruction. The patient feels bett er now. He is afebrile. PHYSICAL EXAMINATION: VITAL SIGNS: Stable. CHEST: Clear. HEART: Regular rate and rhythm. ABDOMEN: Soft, it is distended. Diffuse mildly tender without guarding or rebound. NG tube placed has put out very minimal. LABORATORY DATA AND IMAGING DATA: White blood cell count is 7, hemoglobin 13, platelet count is 242. Sodium 138, potassium 4.3, creatinine 1.31. CT scan as above. ASSESSMENT: Small-bowel obstruction, questionable source of an internal hernia. PLAN: Observation overnight if not markedly improved with NG tube suction tomorrow, plan laparoscopy . He took his Xarelto last night, so my plan is due to the fact that he is stable to give him one ni ght more off the Xarelto for a potential lower risk of bleeding issues postop.
[2018-01-02] MEDS: Sodium Chloride 0.45% 1,000 ML IV SCH (20:30)
--- NOTE | 2018-01-02 22:04 | RAD ---
PORTABLE CHEST 01/02/18 PROVIDED CLINICAL HISTORY: NG tube placement. FINDINGS/IMPRESSION: Comparison is made with the examination performed earlier same date. The enteric catheter is poorly visualized. It appears to be coiled in the left upper quadrant mediall y. Additional significant interval change with respect to the prior examination is not apparent. POS: [facility]
[2018-01-02 22:56] VITALS: BMI 27.8
--- NOTE | 2018-01-02 23:13 | HP ---
CHIEF COMPLAINT: Nausea, vomiting. HISTORY OF PRESENT ILLNESS: This patient is an 82-year-old male who was admitted here back in July. At that time, the patient then presented with a GI bleed and anemia. He also had some atrial fibrillation with RVR and was seen in consultation by Cardiology. His workup revealed a colonic carcinoma which was subsequently removed with a right hemicolectomy by Dr. Espinoza. The patient followed up with Oncology and was told that because his lymph nodes were good, he was feeling well, that he did not need any further intervention for treatment of the cancer. Patient was doing well; however, today he presented to the ER with the onset of nausea, vomiting, and some abdominal pain and distention. 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 Currently, he still feels nauseated and has some generalized abdominal discomfort. The pain in the emergency room has been rated as high as 8/10 and is fairly constant and not relieved by any positioning. He has an NG tube placed, but has not had suction turned on his placement, is pending confirmation by x-ray. REVIEW OF SYSTEMS: A 10-system review was negative except for those things mentioned in the history of present illness. Specifically, he denies any fevers , chills, cough, shortness of breath or diarrhea. PAST MEDICAL HISTORY: Notable for the above-mentioned colon cancer, status post right colectomy as the atrial fibrillation, history of right pontine cerebrovascular accident, coronary artery disease, gastroesophageal reflux, hypertension, gout, chronic kidney disease stage 3, and BPH. PAST SURGICAL HISTORY: Right hemicolectomy to his laparoscopic and hand- assisted, lymph node biopsy in 1998. LINQ monitor placed previously by Dr. Campbell. FAMILY HISTORY: No significant history of cancer, coronary artery disease or stroke. No other inheritable diseases. SOCIAL HISTORY: The patient is . Social drinker. Denies drugs or smoking. His would be his surrogate decision make should that become necessary, and he is FULL CODE. PHYSICAL EXAMINATION: VITAL SIGNS: Temperature is 98.8, pulse 70, respirations 18, O2 sat 99% on room air, BP 162/76. GENERAL APPEARANCE: Age appropriate male. He is in no distress. He is sitting up in the gurney. He has an NG tube in place. HEENT: PERRL. No OP lesions. NECK: Supple and symmetric. CARDIOVASCULAR: Regular rate and rhythm without murmurs, gallops or rubs. LUNGS: Clear to auscultation bilaterally with good chest wall expansion, air exchange. ABDOMEN: Very slightly distended. Bowel sounds are present, they are slightly diminished. He is mildly diffusely tender. EXTREMITIES: Warm and dry without cyanosis, clubbing or edema noted. LABORATORY DATA: White count 7.0, hemoglobin 13.3, platelets 242. Chemistries notable for a creatinine of 1.31, glucose 122, total bilirubin 1.6. Otherwise, chemistries are normal. Chest x-ray shows mild cardiomegaly with small left pleural effusion. Abdominal x-ray shows evidence of small-bowel obstruction. CT abdomen and pelvis show distal small bowel obstruction secondary to internal hernia in the right upper quadrant, evidence of the right hemicolectomy and diverticulosis. EKG shows sinus rhythm, some occasional PVCs, PACs. ASSESSMENT AND PLAN: 1. Small-bowel obstruction. ER talked to Dr. Espinoza appears to be not uncommon with previous surgical conditions. Discussed case with Dr. Espinoza sounds like he may consider doing surgery as early as tomorrow morning if he is not fully resolved. In the meantime, we will keep him on NG tube to low intermittent suction. We will provide p.r.n. pain medications and some hydration as well. 2. History of atrial fibrillation with rapid ventricular response. We will go ahead and give him his Coreg and clamp NG tube. Obviously, the patient was previously on Xarelto, he took that yesterday. We will continue to hold any anticoagulation in anticipation of possible surgery. 3. Hypertension. Holding meds for now. 4. Hyperlipidemia. We will hold statin until his situation is clarified. MTDD
--- NOTE | 2018-01-02 23:49 | RAD ---
ABDOMEN ONE VIEW: 01/02/18 HISTORY: Nasogastric tube placement. FINDINGS: Nasogastric tube descends to the level of the left hemidiaphragm, probably into the upper gastric bod y. Dilated loops of small bowel throughout the abdomen measure up to 5.3 cm. There is contrast mater ial within the colon. IMPRESSION: Nasogastric tube should probably be advanced another 10 cm for better positioning. Dilated small bowel loops consistent with previously described obstruction. POS: [facility]
[2018-01-03 04:20] LABS: #Lymphocytes 1.2 thou/uL (1.20-3.40); #Neutrophils 4.9 thou/uL (1.40-6.50); %Basophils 0.1 % (0.0-1.0); %Eosinophils 0.1 % (0.0-10.0); %Lymphocytes 16.4 % (21.0-51.0); %Monocytes 14.1 % (0.0-10.0); %Neutrophils 69.2 % (42.0-75.0); Hemoglobin 13.2 g/dL (14.0-18.0); Mean Corpuscular HGB CONC 33.6 g/dL (32.0-36.0); Mean Corpuscular Hemoglobin 28.4 pg (27.0-31.0); Mean Corpuscular Volume 84.5 fL (78.0-98.0); Mean Platelet Volume 8.1 fL (7.4-10.4); Platelet Count 235 thou/uL (130-400); RBC Distribution Width 14.5 % (11.5-14.5); Red Blood Cell (RBC) Count 4.66 mill/uL (4.70-6.10); White Blood Cell (WBC) Count 7.1 thou/uL (4.8-10.8)
[2018-01-03 04:57] LABS: Anion Gap 12 mmol/L (10-20); BUN (Urea Nitrogen) 23 mg/dL (8.4-25.7); Calc. Creatinine Clearance 59 mL/min (70-130); Calcium 9.4 mg/dL (7.8-10.44); Carbon Dioxide 27 mmol/L (23-31); Chloride 103 mmol/L (98-107); Estimated GFR-MDRD 62; Glucose 126 mg/dL (83-110); Potassium 4.3 mmol/L (3.5-5.1); Sodium 138 mmol/L (136-145)
[2018-01-03] MEDS: Sodium Chloride 0.45% 1,000 ML IV SCH ×4 (06:00→20:13)
[2018-01-03] MEDS: Famotidine/PF 20 mg/2ml Vial SLOW IVP SCH ×2 (06:56→20:13)
[2018-01-03] MEDS: Carvedilol 6.25 MG TAB PO SCH ×3 (08:53→17:35)
[2018-01-03] MEDS ORDERED: Enoxaparin Sodium 40 MG/0.4 ML SYRINGE SC SCH (09:00)
--- NOTE | 2018-01-03 09:06 | PDOC.GSPN ---
Surgery Progress Note: Subj - Subjective Patient reports: feels better (NG with minimal output overnight. He denies pain.) Surgery Progress Note: Obj - Vital signs Vital signs: Vital Signs - Most Recent Temp Pulse Resp BP Pulse Ox 98.8 F 102 H 18 161/85 H 90 L 01/03/18 08:12 01/03/18 08:12 01/03/18 08:12 01/03/18 08:12 01/03/18 08:12 - Physical Exam General: no distress Cardiovascular: regular rate and rhythm Respiratory: clear to auscultation Abdomen: soft, non tender, distended (much improved) Surgery Progress Note: Results - Labs Result Diagrams: 01/03/18 03:48 01/03/18 03:48 Lab results: Laboratory Results - last 24 hr 01/03/18 01/03/18 03:48 03:48 WBC 7.1 RBC 4.66 L Hgb 13.2 L Hct 39.4 L MCV 84.5 MCH 28.4 MCHC 33.6 RDW 14.5 Plt Count 235 MPV 8.1 Neutrophils % 69.2 Lymphocytes % 16.4 L Monocytes % 14.1 H Eosinophils % 0.1 Basophils % 0.1 Neutrophils # 4.9 Lymphocytes # 1.2 Monocytes # 1.0 H Eosinophils # 0.0 Basophils # 0.0 Sodium 138 Potassium 4.3 Chloride 103 Carbon Dioxide 27 Anion Gap 12 BUN 23 Creatinine 1.35 H Estimated GFR (MDRD) 62 Glucose 126 H Calcium 9.4 Surgery Progress Note: A/P - Problem (1) Small bowel obstruction Current Visit: Yes Code(s): K56.609 - UNSP INTESTNL OBST, UNSP TO PARTIAL VERSUS COMPLETE OBST Status: Acute - Plan Plan: Improved overnight. -continue NG today -small bowel follow through tomorrow. -CT shows possible internal hernia but his pain has resolved. His abdomen is less distended and he feels better. -To OR if pain worsens or he fails to progress
[2018-01-03] MEDS ORDERED: hydrALAZINE 20 MG/ML VIAL SLOW IVP PRN (10:30)
[2018-01-03] MEDS ORDERED: Eucerin (Mineral Oil/Petrolatum,White) 30 gm Jar TOP PRN (10:30)
[2018-01-03] MEDS ORDERED: Acetaminophen 500 MG TAB PO PRN (10:30)
[2018-01-03] MEDS ORDERED: Artificial Tears 18 DROP/0.9 ML EA EYE PRN (10:30)
[2018-01-03] MEDS ORDERED: Sodium Chloride 0.65% Nasal 44 ML BOT EA NARE PRN (10:30)
--- NOTE | 2018-01-03 10:32 | PDOC.PN ---
- Subjective Encounter Start Date: 01/03/18 Encounter Start Time: 09:40 -: old records requested/rev Patient seen and examined. No new complaints. No overnight events pt has NG tube with LIS, he is NPO, he feels better, abdomen less distended - Objective Resuscitation Status: Resuscitation Status FULL:Full Resuscitation MAR Reviewed: Yes Vital Signs & Weight: Vital Signs (12 hours) Temp Pulse Resp BP BP Pulse Ox 01/03/18 09:24 161/85 H 01/03/18 08:12 98.8 F 102 H 18 161/85 H 90 L 01/03/18 04:00 98.9 F 95 18 147/84 H 94 L 01/03/18 00:00 98.8 F 99 18 166/81 H 93 L Weight Weight 211 lb 5 oz Result Diagrams: 01/03/18 03:48 01/03/18 03:48 Radiology Reviewed by me: Yes (xray abdomen) Phys Exam - Physical Examination Constitutional: NAD HEENT: PERRLA, moist MMs, sclera anicteric NG tube with LIS Neck: no JVD, supple Respiratory: no wheezing, no rales, no rhonchi Cardiovascular: RRR, no significant murmur, no rub Gastrointestinal: soft, non-tender Musculoskeletal: no edema, pulses present Neurological: non-focal, normal sensation, moves all 4 limbs Psychiatric: normal affect, A&O x 3 Skin: no rash, normal turgor Dx/Plan (1) Small bowel obstruction Code(s): K56.609 - UNSP INTESTNL OBST, UNSP TO PARTIAL VERSUS COMPLETE OBST Status: Acute Comment: on conservative treatment (2) Acute kidney failure Status: Acute Comment: Improving (3) BPH (benign prostatic hyperplasia) Code(s): N40.0 - BENIGN PROSTATIC HYPERPLASIA WITHOUT LOWER URINRY TRACT SYMP Status: Chronic Qualifiers: Lower urinary tract symptom presence: symptoms absent Qualified Code(s): N40.0 - Benign prostatic hyperplasia without lower urinary tract symptoms Comment: (4) CKD (chronic kidney disease) stage 3, GFR 30-59 ml/min Code(s): N18.3 - CHRONIC KIDNEY DISEASE, STAGE 3 (MODERATE) Status: Chronic Comment: (5) Chronic anticoagulation Code(s): Z79.01 - RETIREMENT (CURRENT) USE OF ANTICOAGULANTS Status: Chronic (6) Dyslipidemia Code(s): E78.5 - HYPERLIPIDEMIA, UNSPECIFIED Status: Chronic (7) H/O malignant neoplasm of colon Code(s): Z85.038 - PERSONAL HISTORY OF MALIGNANT NEOPLASM OF LARGE INTESTINE Status: Chronic Comment: treated with surgery (8) H/O: CVA (cerebrovascular accident) Code(s): Z86.73 - PRSNL HX OF TIA (TIA), AND CEREB INFRC W/O RESID DEFICITS Status: Chronic (9) HTN (hypertension) Code(s): I10 - ESSENTIAL (PRIMARY) HYPERTENSION Status: Chronic Qualifiers: Hypertension type: essential hypertension Qualified Code(s): I10 - Essential (primary) hypertension Comment: (10) H/O atrial flutter Code(s): Z86.79 - PERSONAL HISTORY OF OTHER DISEASES OF THE CIRCULATORY SYSTEM Status: Chronic - Plan cont current plan of care * continue NG tube with LIS * keep NPO * surgeon on case * tomorrow SBFT * will monitor * morphin for pain control * repeat labs tomorrow * medication reviewed as below * symptomatic treatment. Review of Systems - Review of Systems ENT: negative: Ear Pain, Ear Discharge, Nose Pain, Nose Discharge, Nose Congestion, Mouth Pain, Mouth Swelling, Throat Pain, Throat Swelling, Other Respiratory: negative: Cough, Dry, Shortness of Breath, Hemoptysis, SOB with Excertion, Pleuritic Pain, Sputum, Wheezing Cardiovascular: negative: chest pain, palpitations, orthopnea, paroxysmal nocturnal dyspnea, edema, light headedness, other Gastrointestinal: negative: Nausea, Vomiting, Abdominal Pain, Diarrhea, Constipation, Melena, Hematochezia, Other Genitourinary: negative: Dysuria, Frequency, Incontinence, Hematuria, Retention , Other Musculoskeletal: negative: Neck Pain, Shoulder Pain, Arm Pain, Back Pain, Hand Pain, Leg Pain, Foot Pain, Other Skin: negative: Rash, Lesions, [place], Bruising, Other - Medications/Allergies Allergies/Adverse Reactions: Allergies Allergy/AdvReac Type Severity Reaction Status Date / Time hydrocodone Allergy Rash Verified 01/02/18 22:44 ibuprofen Allergy Unverified 01/02/18 22:45 Medications: Current Medications Carvedilol (Coreg) 6.25 mg PO BID-WM [facility] Last Admin: 01/03/18 09:24 Dose: 6.25 mg Famotidine (Pepcid) 20 mg SLOW IVP BID [facility] Last Admin: 01/03/18 06:56 Dose: 20 mg Sodium Chloride (1/2 Normal Saline) 1,000 mls @ 75 mls/hr IV .[id number] [facility] Last Admin: 01/03/18 09:22 Dose: 1,000 mls Morphine Sulfate (Morphine) 2 mg SLOW IVP Q4H PRN PRN Reason: Breakthrough Pain Sodium Chloride (Flush - Normal Saline) 10 ml IVF Q12HR [facility] Last Admin: 01/03/18 09:38 Dose: Not Given Sodium Chloride (Flush - Normal Saline) 10 ml IVF PRN PRN PRN Reason: Saline Flush
[2018-01-03] MEDS ORDERED: Lidocaine 1% PF 5 ML VIAL ONE (15:31)
[2018-01-03] MEDS ORDERED: Glycopyrrolate 0.2 MG/ML 5 ML SYRINGE ONE (15:31)
[2018-01-03] MEDS ORDERED: PHENYLEPHRINE-NS 100 MCG/ML 10 ML SYRINGE ONE (15:31)
[2018-01-03] MEDS ORDERED: Ondansetron HCl/PF 4 MG/2 ML Vial ONE (15:31)
[2018-01-03] MEDS ORDERED: Succinylcholine Chloride 20 MG/ML 10 ml SYRINGE FS ONE (15:31)
[2018-01-03] MEDS ORDERED: PROPOFOL 200 MG/20 ML VIAL ONE (15:31)
[2018-01-03] MEDS: Ondansetron HCl/PF 4 MG/2 ML Vial IVP PRN (17:35)
[2018-01-03] MEDS: Morphine 4 MG/ML VIAL SLOW IVP PRN (17:35)
[2018-01-04] MEDS: Morphine 4 MG/ML VIAL SLOW IVP PRN ×4 (00:16→16:27)
[2018-01-04 04:53] LABS: Anion Gap 9 mmol/L (10-20); BUN (Urea Nitrogen) 24 mg/dL (8.4-25.7); Calc. Creatinine Clearance 62 mL/min (70-130); Calcium 8.6 mg/dL (7.8-10.44); Carbon Dioxide 28 mmol/L (23-31); Chloride 106 mmol/L (98-107); Estimated GFR-MDRD 65; Glucose 103 mg/dL (83-110); Potassium 4.2 mmol/L (3.5-5.1); Sodium 139 mmol/L (136-145)
[2018-01-04 05:06] LABS: Band 2 % (5-11); Hemoglobin 13.2 g/dL (14.0-18.0); Lymphocytes 19 % (21-51); MDiff Complete? YES; Mean Corpuscular HGB CONC 32.8 g/dL (32.0-36.0); Mean Corpuscular Volume 85.5 fL (78.0-98.0); Mean Platelet Volume 8.3 fL (7.4-10.4); Monocytes 27 % (0-10); Neutrophil 51 % (42-75); PLT Morphology Comment Appears Adequate; Platelet Count 224 thou/uL (130-400); RBC Distribution Width 14.2 % (11.5-14.5); RBC Morphology Normal; Reactive Lymphocytes 1 % (0-10); White Blood Cell (WBC) Count 6.7 thou/uL (4.8-10.8)
[2018-01-04] MEDS: Famotidine/PF 20 mg/2ml Vial SLOW IVP SCH ×2 (08:22→21:55)
[2018-01-04] MEDS: Sodium Chloride 0.45% 1,000 ML IV SCH ×2 (08:23→21:59)
[2018-01-04] MEDS: Carvedilol 6.25 MG TAB PO SCH ×2 (08:24→16:56)
[2018-01-04] MEDS ORDERED: MD-Gastroview 120 ML BOT ONE (10:07)
--- NOTE | 2018-01-04 10:19 | PDOC.PN ---
- Subjective Encounter Start Date: 01/04/18 Encounter Start Time: 08:45 pt is not passing gas, no BM, has NG tube with LIS, no more distention - Objective Resuscitation Status: Resuscitation Status FULL:Full Resuscitation MAR Reviewed: Yes Vital Signs & Weight: Vital Signs (12 hours) Temp Pulse Resp BP BP BP Pulse Ox 01/04/18 08:30 93 L 01/04/18 08:24 165/86 H 01/04/18 07:37 98.5 F 62 20 165/86 H 92 L 01/04/18 04:00 98.8 F 73 20 169/78 H 95 01/03/18 23:00 98.3 F 81 20 150/77 H 93 L Weight Weight 211 lb 5 oz I&O: 01/03/18 01/04/18 01/05/18 06:59 06:59 06:59 Intake Total 806 Output Total 1115 Balance -309 Result Diagrams: 01/04/18 03:54 01/04/18 03:54 Phys Exam - Physical Examination Constitutional: NAD HEENT: PERRLA, moist MMs, sclera anicteric NG tube with LIS Neck: no JVD, supple Respiratory: no wheezing, no rales, no rhonchi Cardiovascular: RRR, no significant murmur, no rub Gastrointestinal: soft, non-tender no BS Musculoskeletal: no edema, pulses present Neurological: non-focal, normal sensation, moves all 4 limbs Psychiatric: normal affect, A&O x 3 Skin: no rash, normal turgor Dx/Plan (1) Small bowel obstruction Code(s): K56.609 - UNSP INTESTNL OBST, UNSP TO PARTIAL VERSUS COMPLETE OBST Status: Acute Comment: on conservative treatment (2) Acute kidney failure Status: Acute Comment: Improving (3) BPH (benign prostatic hyperplasia) Code(s): N40.0 - BENIGN PROSTATIC HYPERPLASIA WITHOUT LOWER URINRY TRACT SYMP Status: Chronic Qualifiers: Lower urinary tract symptom presence: symptoms absent Qualified Code(s): N40.0 - Benign prostatic hyperplasia without lower urinary tract symptoms Comment: (4) CKD (chronic kidney disease) stage 3, GFR 30-59 ml/min Code(s): N18.3 - CHRONIC KIDNEY DISEASE, STAGE 3 (MODERATE) Status: Chronic Comment: (5) Chronic anticoagulation Code(s): Z79.01 - NURSING HOME (CURRENT) USE OF ANTICOAGULANTS Status: Chronic (6) Dyslipidemia Code(s): E78.5 - HYPERLIPIDEMIA, UNSPECIFIED Status: Chronic (7) H/O malignant neoplasm of colon Code(s): Z85.038 - PERSONAL HISTORY OF MALIGNANT NEOPLASM OF LARGE INTESTINE Status: Chronic Comment: treated with surgery (8) H/O: CVA (cerebrovascular accident) Code(s): Z86.73 - PRSNL HX OF TIA (TIA), AND CEREB INFRC W/O RESID DEFICITS Status: Chronic (9) HTN (hypertension) Code(s): I10 - ESSENTIAL (PRIMARY) HYPERTENSION Status: Chronic Qualifiers: Hypertension type: essential hypertension Qualified Code(s): I10 - Essential (primary) hypertension Comment: (10) H/O atrial flutter Code(s): Z86.79 - PERSONAL HISTORY OF OTHER DISEASES OF THE CIRCULATORY SYSTEM Status: Chronic - Plan cont current plan of care * continue IVF * continue NG tube with LIS * keep NPO * surgery following * today SBFT * medication reviewed as below * symptomatic treatment. Review of Systems - Review of Systems ENT: negative: Ear Pain, Ear Discharge, Nose Pain, Nose Discharge, Nose Congestion, Mouth Pain, Mouth Swelling, Throat Pain, Throat Swelling, Other Respiratory: negative: Cough, Dry, Shortness of Breath, Hemoptysis, SOB with Excertion, Pleuritic Pain, Sputum, Wheezing Cardiovascular: negative: chest pain, palpitations, orthopnea, paroxysmal nocturnal dyspnea, edema, light headedness, other Gastrointestinal: negative: Nausea, Vomiting, Abdominal Pain, Diarrhea, Constipation, Melena, Hematochezia, Other Genitourinary: negative: Dysuria, Frequency, Incontinence, Hematuria, Retention , Other Musculoskeletal: negative: Neck Pain, Shoulder Pain, Arm Pain, Back Pain, Hand Pain, Leg Pain, Foot Pain, Other Skin: negative: Rash, Lesions, [place], Bruising, Other - Medications/Allergies Allergies/Adverse Reactions: Allergies Allergy/AdvReac Type Severity Reaction Status Date / Time hydrocodone Allergy Rash Verified 01/03/18 20:08 ibuprofen Allergy Rash Verified 01/03/18 20:08 Medications: Current Medications Acetaminophen (Tylenol) 1,000 mg PO Q6H PRN PRN Reason: Mild Pain (1-3) Artificial Tears (Tears Naturale) 2 drop EA EYE PRN PRN PRN Reason: Dry Eyes Carvedilol (Coreg) 6.25 mg PO BID-[facility] Last Admin: 01/04/18 08:24 Dose: 6.25 mg Famotidine (Pepcid) 20 mg SLOW IVP BID [facility] Last Admin: 01/04/18 08:22 Dose: 20 mg Hydralazine HCl (Apresoline) 10 mg SLOW IVP Q4H PRN PRN Reason: SBP > 180 and HR < 70 Sodium Chloride (1/2 Normal Saline) 1,000 mls @ 75 mls/hr IV .[id number] [facility] Last Admin: 01/04/18 08:23 Dose: 1,000 mls Mineral Oil/White Petrolatum (Eucerin Cream) 0 gm TOP BIDPRN PRN PRN Reason: Dry Skin Morphine Sulfate (Morphine) 2 mg SLOW IVP Q4H PRN PRN Reason: Breakthrough Pain Last Admin: 01/04/18 05:44 Dose: 2 mg Ondansetron HCl (Zofran) 4 mg IVP Q6H PRN PRN Reason: Nausea/Vomiting Last Admin: 01/03/18 17:35 Dose: 4 mg Sodium Chloride (Flush - Normal Saline) 10 ml IVF Q12HR [facility] Last Admin: 01/04/18 08:25 Dose: Not Given Sodium Chloride (Flush - Normal Saline) 10 ml IVF PRN PRN PRN Reason: Saline Flush Sodium Chloride ([place] Nasal Spelter 0.65%) 0 ml EA NARE QIDPRN PRN PRN Reason: Nasal Congestion
--- NOTE | 2018-01-04 11:10 | PRG ---
DATE OF SERVICE: 01/04/2018 SUBJECTIVE: The patient says he feels better than he did yesterday. He has passed a little gas out of his bottom. No nausea or vomiting. PHYSICAL EXAMINATION: VITAL SIGNS: Temperature is 98.5, pulse 62, blood pressure 165/86. GENERAL: He is awake, alert, in no apparent distress. He has an NG tube in place. It has put out 3 40 mL. ABDOMEN: Somewhat distended, but soft. He says is better than it was yesterday. LABORATORY DATA: His white count 6.7, H&H 13 and 40, platelet count 224. Electrolytes are fine. ASSESSMENT: Small-bowel obstruction from internal hernia, improved. PLAN: Small bowel follow through later today.
[2018-01-04] MEDS: Ondansetron HCl/PF 4 MG/2 ML Vial IVP PRN (12:34)
--- NOTE | 2018-01-04 15:57 | RAD ---
GASTROGRAFIN SMALL BOWEL: 01/04/18 HISTORY: Evaluate for small bowel obstruction. COMPARISON: None. FINDINGS: Initial supine sonography technician radiograph demonstrates a nasogastric tube in the epigastric region. There are a ir filled loops of mildly prominent small bowel. Gastrografin was administered and opacifies multiple distended loops of small bowel. After five hours, there does not appear to be contrast opacifying th e colon. IMPRESSION: Findings suggesting a high grade obstruction. There is lack of contrast opacifying the colon after fi ve hours. POS: [facility]
[2018-01-04] MEDS ORDERED: cefOXitin 2 GM in Sodium Chloride 0.9% 100 ML IVPB SCH (18:30)
[2018-01-04] MEDS ORDERED: Sodium Chloride 0.9% 100 ML ONE (18:57)
[2018-01-04] MEDS ORDERED: Fentanyl 100 MCG/2 ML VIAL ONE (18:57)
[2018-01-04] MEDS ORDERED: cefOXitin 2 GM VIAL ONE (18:57)
[2018-01-04] MEDS ORDERED: Phenylephrine HCL 10 MG/ML VIAL ONE (19:58)
[2018-01-04] MEDS ORDERED: Morphine 2 MG/ML SYRINGE SLOW IVP PRN (20:34)
[2018-01-04] MEDS ORDERED: Promethazine HCl 25 MG/ML VIAL SLOW IVP PRN (20:49)
[2018-01-04] MEDS ORDERED: Promethazine HCl 25 MG/ML VIAL IM PRN (20:49)
[2018-01-04] MEDS ORDERED: Ondansetron HCl/PF 4 MG/2 ML Vial IVP PRN (20:49)
[2018-01-04] MEDS ORDERED: Morphine 4 MG/ML VIAL SLOW IVP PRN (21:47)
[2018-01-04] MEDS: Morphine 2 MG/ML SYRINGE SLOW IVP PRN (21:53)
[2018-01-05] MEDS: Piperacillin/Tazobactam 3.375 GM in Sodium Chloride 0.9% 100 ML IVPB SCH ×4 (00:19→17:26)
--- NOTE | 2018-01-05 01:22 | OP ---
PREOPERATIVE DIAGNOSIS: High grade small-bowel obstruction. SURGEON: Claude Mcarthur M.D. PROCEDURE PERFORMED: Exploratory laparotomy, lysis of adhesions, repair of enterotomy and repair of serosal tears. INDICATIONS: This is an 82-year-old male who has had previous right hemicolectomy, colon cancer, who developed a small-bowel obstruction. A small bowel follow through today showed a high-grade obstruc tion with no flow beyond it. FINDINGS: Very dense adhesions. He had an internal hernia that was related to band adhesions in the right upper quadrant, very posterior and required a lot of lysis of adhesions to get down to it, dur ing which he sustained some serosal tears and an enterotomy and dividing the tight band adhesion to r elease the obstruction. PROCEDURE IN DETAIL: After informed consent was obtained, the patient was taken to the operating julius m and given general endotracheal anesthesia. He was placed in the supine position. His abdomen was prepped and draped in usual fashion. A midline incision was performed. The subcu divided sharply. The fascia incised with a 10 blade and then further incised with the curved Calloway's. The peritoneum o pened. There was quite a bit of brownish peritoneal fluid that was removed. The lysis of adhesions was performed first of all anteriorly to free up the bowel then was able to start delivering some bow el and found the ligament of Treitz and traced it distally down to where the obstruction was, but it was a lot of small bowel in the right upper quadrant. Using retraction, was able to expose these adh esions and they were lysed sharply. The final one the actual culprit was very posterior and deep and in lysing it I sustained an enterotomy. There was a sudden release of enteric fluid, I was able to control this with compression and then placed the suction within the bowel to decompress the bowel fa irly well. The enterotomy was then closed with interrupted 3-0 Vicryl sutures. Then ran the bowel f rom the ileocolostomy proximally, there were 2 serosal tears that were repaired with interrupted 3-0 Vicryl sutures. Then, the abdomen was thoroughly irrigated with saline. Hemostasis was assured. Th e omentum was basically gone. There was no omentum to place anteriorly. The fascia was then closed with a running looped #1 PDS. The subcu irrigated and the skin closed with skin naty. The patien t tolerated the procedure well and transferred to recovery in good condition. Sponge and needle coun t verified correct x2.
[2018-01-05] MEDS: Sodium Chloride 0.45% 1,000 ML IV SCH ×3 (06:19→17:25)
[2018-01-05] MEDS: Carvedilol 6.25 MG TAB PO SCH ×2 (08:21→17:25)
[2018-01-05] MEDS: Enoxaparin Sodium 40 MG/0.4 ML SYRINGE SC SCH (08:21)
[2018-01-05] MEDS: Famotidine/PF 20 mg/2ml Vial SLOW IVP SCH ×2 (08:21→19:33)
--- NOTE | 2018-01-05 10:11 | PDOC.PN ---
- Subjective Encounter Start Date: 01/05/18 Encounter Start Time: 08:10 pt required surgery and adhesiolysis for SBO, has NG tube with LIS - Objective Resuscitation Status: Resuscitation Status FULL:Full Resuscitation MAR Reviewed: Yes Vital Signs & Weight: Vital Signs (12 hours) Temp Pulse Resp BP BP BP Pulse Ox 01/05/18 08:21 128/78 01/05/18 08:00 98.3 F 103 H 18 128/78 96 01/05/18 07:03 98.3 F 103 H 18 128/78 96 01/05/18 04:00 98 F 97 18 114/65 97 01/05/18 00:00 98.5 F 97 20 153/69 H 97 Weight Admit Weight 211 lb 5 oz Weight 211 lb 5 oz I&O: 01/04/18 01/05/18 01/06/18 06:59 06:59 06:59 Intake Total 806 2176 Output Total 1115 3250 Balance -309 -0121 Result Diagrams: 01/04/18 03:54 01/04/18 03:54 Radiology Reviewed by me: Yes (small bowel xray noted) Phys Exam - Physical Examination Constitutional: NAD HEENT: PERRLA, moist MMs, sclera anicteric NG tube with LIS Neck: no JVD, supple Respiratory: no wheezing, no rales, no rhonchi Cardiovascular: RRR, no significant murmur, no rub Gastrointestinal: soft surgical site with dressing Musculoskeletal: no edema, pulses present Neurological: non-focal, normal sensation, moves all 4 limbs Psychiatric: normal affect, A&O x 3 Skin: no rash, normal turgor Dx/Plan (1) Small bowel obstruction Code(s): K56.609 - UNSP INTESTNL OBST, UNSP TO PARTIAL VERSUS COMPLETE OBST Status: Acute Comment: s/p adhesiolysis (2) Acute kidney failure Status: Resolved Comment: (3) BPH (benign prostatic hyperplasia) Code(s): N40.0 - BENIGN PROSTATIC HYPERPLASIA WITHOUT LOWER URINRY TRACT SYMP Status: Chronic Qualifiers: Lower urinary tract symptom presence: symptoms absent Qualified Code(s): N40.0 - Benign prostatic hyperplasia without lower urinary tract symptoms Comment: (4) CKD (chronic kidney disease) stage 3, GFR 30-59 ml/min Code(s): N18.3 - CHRONIC KIDNEY DISEASE, STAGE 3 (MODERATE) Status: Chronic Comment: (5) Chronic anticoagulation Code(s): Z79.01 - [employer] (CURRENT) USE OF ANTICOAGULANTS Status: Chronic (6) Dyslipidemia Code(s): E78.5 - HYPERLIPIDEMIA, UNSPECIFIED Status: Chronic (7) H/O malignant neoplasm of colon Code(s): Z85.038 - PERSONAL HISTORY OF MALIGNANT NEOPLASM OF LARGE INTESTINE Status: Chronic Comment: treated with surgery (8) H/O: CVA (cerebrovascular accident) Code(s): Z86.73 - PRSNL HX OF TIA (TIA), AND CEREB INFRC W/O RESID DEFICITS Status: Chronic (9) HTN (hypertension) Code(s): I10 - ESSENTIAL (PRIMARY) HYPERTENSION Status: Chronic Qualifiers: Hypertension type: essential hypertension Qualified Code(s): I10 - Essential (primary) hypertension Comment: (10) H/O atrial flutter Code(s): Z86.79 - PERSONAL HISTORY OF OTHER DISEASES OF THE CIRCULATORY SYSTEM Status: Chronic - Plan cont current plan of care, incentive spirometry * continue post operative care for SBO after surgery as per surgeon * medication reviewed as below * symptomatic treatment. Review of Systems - Review of Systems ENT: negative: Ear Pain, Ear Discharge, Nose Pain, Nose Discharge, Nose Congestion, Mouth Pain, Mouth Swelling, Throat Pain, Throat Swelling, Other Respiratory: negative: Cough, Dry, Shortness of Breath, Hemoptysis, SOB with Excertion, Pleuritic Pain, Sputum, Wheezing Cardiovascular: negative: chest pain, palpitations, orthopnea, paroxysmal nocturnal dyspnea, edema, light headedness, other Gastrointestinal: negative: Nausea, Vomiting, Abdominal Pain, Diarrhea, Constipation, Melena, Hematochezia, Other Genitourinary: negative: Dysuria, Frequency, Incontinence, Hematuria, Retention , Other Musculoskeletal: negative: Neck Pain, Shoulder Pain, Arm Pain, Back Pain, Hand Pain, Leg Pain, Foot Pain, Other - Medications/Allergies Allergies/Adverse Reactions: Allergies Allergy/AdvReac Type Severity Reaction Status Date / Time hydrocodone Allergy Rash Verified 01/03/18 20:08 ibuprofen Allergy Rash Verified 01/03/18 20:08 Medications: Current Medications Acetaminophen (Tylenol) 1,000 mg PO Q6H PRN PRN Reason: Mild Pain (1-3) Artificial Tears (Tears Naturale) 2 drop EA EYE PRN PRN PRN Reason: Dry Eyes Carvedilol (Coreg) 6.25 mg PO BID-[facility] Last Admin: 01/05/18 08:21 Dose: 6.25 mg Enoxaparin Sodium (Lovenox) 40 mg SC 0900 [facility] Last Admin: 01/05/18 08:21 Dose: 40 mg Famotidine (Pepcid) 20 mg SLOW IVP BID [facility] Last Admin: 01/05/18 08:21 Dose: 20 mg Hydralazine HCl (Apresoline) 10 mg SLOW IVP Q4H PRN PRN Reason: SBP > 180 and HR < 70 Cefoxitin Sodium 2 gm/ Sodium (Chloride) 100 mls @ 100 mls/hr IVPB ONCALL-OR [facility] Stop: 01/06/18 18:31 Sodium Chloride (1/2 Normal Saline) 1,000 mls @ 125 mls/hr IV .Q8H [facility] Last Admin: 01/05/18 06:19 Dose: 1,000 mls Piperacillin Sod/Tazobactam (Sod 3.375 gm/ Sodium Chloride) 100 mls @ 200 mls/ hr IVPB Q6HR [facility] Last Admin: 01/05/18 06:19 Dose: 100 mls Mineral Oil/White Petrolatum (Eucerin Cream) 0 gm TOP BIDPRN PRN PRN Reason: Dry Skin Morphine Sulfate (Morphine) 2 mg SLOW IVP Q4H PRN PRN Reason: Breakthrough Pain Last Admin: 01/04/18 21:53 Dose: 2 mg Morphine Sulfate (Morphine) 4 mg SLOW IVP Q2H PRN PRN Reason: Moderate to Severe Pain (6-10) Ondansetron HCl (Zofran) 4 mg IVP Q6H PRN PRN Reason: Nausea/Vomiting Last Admin: 01/04/18 12:34 Dose: 4 mg Sodium Chloride (Flush - Normal Saline) 10 ml IVF Q12HR [facility] Last Admin: 01/05/18 08:22 Dose: Not Given Sodium Chloride (Flush - Normal Saline) 10 ml IVF PRN PRN PRN Reason: Saline Flush Sodium Chloride ([place] Nasal [place] 0.65%) 0 ml EA NARE QIDPRN PRN PRN Reason: Nasal Congestion
--- NOTE | 2018-01-05 11:01 | PRG ---
DATE OF SERVICE: 01/05/2018 SUBJECTIVE: The patient states his pain is better. He has no nausea or vomiting. He feels a lot of rumbling in his abdomen, but no flatus yet. He is very thirsty and would like some ice. PHYSICAL EXAMINATION: VITAL SIGNS: His temperature is 98.3, pulse 103, blood pressure 128/78. GENERAL: He is awake, alert. His NG tube put out only about 170. He has got a good urine output. LABORATORY DATA: White count is 6.7, H and H 13 and 40, platelet count 224,000. Electrolytes look g ood. His creatinine is down to 1.28. His CO2 is 28. ASSESSMENT: Improved. PLAN: We will let him have some ice chips. We will do physical therapy and ambulation, out of bed i n the chair.
[2018-01-05] MEDS: Morphine 2 MG/ML SYRINGE SLOW IVP PRN (22:16)
[2018-01-06] MEDS: Piperacillin/Tazobactam 3.375 GM in Sodium Chloride 0.9% 100 ML IVPB SCH ×5 (00:04→23:38)
[2018-01-06] MEDS ORDERED: Metoprolol Tartrate 5 MG/5 ML VIAL IVP SCH ×2 (01:30→01:45)
[2018-01-06] MEDS ORDERED: Diltiazem HCl 125 MG, Admixture Fee 1 EACH in Sodium Chloride 0.9% 100 ML IVPB SCH (02:45)
[2018-01-06 02:46] LABS: Troponin I Less than 0.010 ng/mL (< 0.028)
[2018-01-06] MEDS: Metoprolol Tartrate 5 MG/5 ML VIAL IVP PRN ×2 (02:46→08:11)
[2018-01-06] MEDS ORDERED: Digoxin 0.5 MG/2 ML AMP SLOW IVP SCH (05:00)
[2018-01-06 07:09] LABS: #Lymphocytes 0.9 thou/uL (1.20-3.40); #Monocytes 1.2 thou/uL (0.11-0.59); #Neutrophils 8.8 thou/uL (1.40-6.50); %Eosinophils 0.1 % (0.0-10.0); %Lymphocytes 8.3 % (21.0-51.0); %Monocytes 11.2 % (0.0-10.0); %Neutrophils 80.3 % (42.0-75.0); Mean Corpuscular HGB CONC 33.2 g/dL (32.0-36.0); Mean Corpuscular Hemoglobin 28.7 pg (27.0-31.0); Mean Corpuscular Volume 86.6 fL (78.0-98.0); Mean Platelet Volume 8.1 fL (7.4-10.4); Platelet Count 182 thou/uL (130-400); RBC Distribution Width 14.3 % (11.5-14.5); Red Blood Cell (RBC) Count 4.86 mill/uL (4.70-6.10)
[2018-01-06 07:31] LABS: Anion Gap 11 mmol/L (10-20); BUN (Urea Nitrogen) 40 mg/dL (8.4-25.7); Calc. Creatinine Clearance 42 mL/min (70-130); Calcium 8.5 mg/dL (7.8-10.44); Carbon Dioxide 23 mmol/L (23-31); Chloride 113 mmol/L (98-107); Estimated GFR-MDRD 41; Glucose 103 mg/dL (83-110); Magnesium 2.5 mg/dL (1.6-2.6); Potassium 3.9 mmol/L (3.5-5.1); Sodium 143 mmol/L (136-145)
--- NOTE | 2018-01-06 07:33 | PDOC.EVN ---
Event Note - Event Note Event Note: Called to evaluate patient for ?? Aflutter (SVT) Assessment and plan: Patient admitted for SBO Transferred patient to Tele ordered lopressor Q6h NS IV fluid Spoke with cardio-- suggestion is to start Cardizem drip, but due to BP just gave the bolus of cardizem in addition to previous dose of lopressor. BP dropped to 86 systolic. Told nurse to give fluids to get BP up over 90 systolic contemplated on using adenosine since patient has be tachy over 150's for close to 4hrs. Patient doesn't want this intervention and want us to talk to his family first. Called cardio again and cardio gave order for dig. critical care time ~ 75mins.
[2018-01-06 07:36] LABS: CKMB 1.5 ng/mL (0-6.6); Troponin I 0.016 ng/mL (< 0.028)
[2018-01-06] MEDS: Enoxaparin Sodium 40 MG/0.4 ML SYRINGE SC SCH (08:14)
[2018-01-06] MEDS: Famotidine/PF 20 mg/2ml Vial SLOW IVP SCH (08:14)
[2018-01-06] MEDS: Carvedilol 6.25 MG TAB PO SCH ×2 (08:15→16:49)
[2018-01-06] MEDS ORDERED: Diltiazem 125 MG in Sodium Chloride 0.9% 100 ML IVPB SCH (08:30)
--- NOTE | 2018-01-06 08:45 | PDOC.PN ---
- Subjective Encounter Start Date: 01/06/18 Encounter Start Time: 07:40 Patient seen and examined. last night he had aflutter with RVR, so [facility], he still has RVR, he does not have symptoms assoicated with that, his BP improved, - Objective Resuscitation Status: Resuscitation Status FULL:Full Resuscitation MAR Reviewed: Yes Vital Signs & Weight: Vital Signs (12 hours) Temp Pulse Resp BP BP BP Pulse Ox 01/06/18 08:15 126/67 01/06/18 05:18 142 H 01/06/18 03:25 98.0 F 141 H 23 H 104/66 92 L 01/06/18 02:29 95 01/06/18 01:58 98.4 F 150 H 24 H 121/70 94 L 01/06/18 01:15 136 H 18 101/68 92 L 01/06/18 00:13 98.4 F 103 H 18 136/78 93 L 01/05/18 22:21 20 168/87 H Weight Admit Weight 211 lb 5 oz Weight 210 lb 11.2 oz I&O: 01/05/18 01/06/18 01/07/18 06:59 06:59 06:59 Intake Total 2176 2650 Output Total 3250 1700 Balance -1074 950 Result Diagrams: 01/06/18 06:58 01/06/18 06:58 EKG Reviewed by me: Yes (aflutter) Phys Exam - Physical Examination Constitutional: NAD HEENT: PERRLA, moist MMs, sclera anicteric NG tube+ Neck: no JVD, supple Respiratory: no wheezing, no rales, no rhonchi Cardiovascular: no significant murmur, irregular Gastrointestinal: soft, non-tender, no distention surgical site clean Musculoskeletal: no edema, pulses present Neurological: non-focal, normal sensation, moves all 4 limbs Psychiatric: normal affect, A&O x 3 Skin: no rash, normal turgor Dx/Plan (1) Atrial flutter with rapid ventricular response Code(s): I48.92 - UNSPECIFIED ATRIAL FLUTTER Status: Acute (2) Small bowel obstruction Code(s): K56.609 - UNSP INTESTNL OBST, UNSP TO PARTIAL VERSUS COMPLETE OBST Status: Acute Comment: s/p adhesiolysis (3) Acute kidney failure Status: Acute Comment: (4) BPH (benign prostatic hyperplasia) Code(s): N40.0 - BENIGN PROSTATIC HYPERPLASIA WITHOUT LOWER URINRY TRACT SYMP Status: Chronic Qualifiers: Lower urinary tract symptom presence: symptoms absent Qualified Code(s): N40.0 - Benign prostatic hyperplasia without lower urinary tract symptoms Comment: (5) CKD (chronic kidney disease) stage 3, GFR 30-59 ml/min Code(s): N18.3 - CHRONIC KIDNEY DISEASE, STAGE 3 (MODERATE) Status: Chronic Comment: (6) Chronic anticoagulation Code(s): Z79.01 - MCC (CURRENT) USE OF ANTICOAGULANTS Status: Chronic (7) Dyslipidemia Code(s): E78.5 - HYPERLIPIDEMIA, UNSPECIFIED Status: Chronic (8) H/O malignant neoplasm of colon Code(s): Z85.038 - PERSONAL HISTORY OF MALIGNANT NEOPLASM OF LARGE INTESTINE Status: Chronic Comment: treated with surgery (9) H/O: CVA (cerebrovascular accident) Code(s): Z86.73 - PRSNL HX OF TIA (TIA), AND CEREB INFRC W/O RESID DEFICITS Status: Chronic (10) HTN (hypertension) Code(s): I10 - ESSENTIAL (PRIMARY) HYPERTENSION Status: Chronic Qualifiers: Hypertension type: essential hypertension Qualified Code(s): I10 - Essential (primary) hypertension Comment: (11) H/O atrial flutter Code(s): Z86.79 - PERSONAL HISTORY OF OTHER DISEASES OF THE CIRCULATORY SYSTEM Status: Chronic - Plan cont current plan of care * cardiology consulted * start cardizem drip at 5 mg per hour * continue digoxin loading * medication reviewed as below * symptomatic treatment * will monitor BP * continue IVF for acute kidney failure. Review of Systems - Review of Systems ENT: negative: Ear Pain, Ear Discharge, Nose Pain, Nose Discharge, Nose Congestion, Mouth Pain, Mouth Swelling, Throat Pain, Throat Swelling, Other Respiratory: negative: Cough, Dry, Shortness of Breath, Hemoptysis, SOB with Excertion, Pleuritic Pain, Sputum, Wheezing Cardiovascular: negative: chest pain, palpitations, orthopnea, paroxysmal nocturnal dyspnea, edema, light headedness, other Gastrointestinal: negative: Nausea, Vomiting, Abdominal Pain, Diarrhea, Constipation, Melena, Hematochezia, Other Genitourinary: negative: Dysuria, Frequency, Incontinence, Hematuria, Retention , Other Musculoskeletal: negative: Neck Pain, Shoulder Pain, Arm Pain, Back Pain, Hand Pain, Leg Pain, Foot Pain, Other Skin: negative: Rash, Lesions, [place], Bruising, Other - Medications/Allergies Allergies/Adverse Reactions: Allergies Allergy/AdvReac Type Severity Reaction Status Date / Time hydrocodone Allergy Rash Verified 01/03/18 20:08 ibuprofen Allergy Rash Verified 01/03/18 20:08 Medications: Current Medications Acetaminophen (Tylenol) 1,000 mg PO Q6H PRN PRN Reason: Mild Pain (1-3) Last Admin: 01/05/18 23:00 Dose: 1,000 mg Artificial Tears (Tears Naturale) 2 drop EA EYE PRN PRN PRN Reason: Dry Eyes Carvedilol (Coreg) 6.25 mg PO BID-[facility] Last Admin: 01/06/18 08:15 Dose: 6.25 mg Digoxin (Lanoxin) 0.25 mg SLOW IVP Q6HR [facility] Stop: 01/06/18 18:01 Digoxin (Lanoxin) 0.125 mg PO QAM [facility] Diltiazem HCl (Cardizem) 10 mg SLOW IVP NOW [facility] Stop: 01/06/18 10:00 Enoxaparin Sodium (Lovenox) 40 mg SC 0900 [facility] Last Admin: 01/06/18 08:14 Dose: 40 mg Famotidine (Pepcid) 20 mg SLOW IVP BID [facility] Last Admin: 01/06/18 08:14 Dose: 20 mg Hydralazine HCl (Apresoline) 10 mg SLOW IVP Q4H PRN PRN Reason: SBP > 180 and HR < 70 Cefoxitin Sodium 2 gm/ Sodium (Chloride) 100 mls @ 100 mls/hr IVPB ONCALL-OR [facility] Stop: 01/06/18 18:31 Sodium Chloride (1/2 Normal Saline) 1,000 mls @ 125 mls/hr IV .Q8H [facility] Last Admin: 01/05/18 17:25 Dose: 1,000 mls Piperacillin Sod/Tazobactam (Sod 3.375 gm/ Sodium Chloride) 100 mls @ 200 mls/ hr IVPB Q6HR [facility] Last Admin: 01/06/18 07:39 Dose: 100 mls Diltiazem HCl 125 mg/ Sodium (Chloride) 125 mls @ 5 mls/hr IVPB INF [facility]; Protocol Metoprolol Tartrate (Lopressor) 10 mg IVP Q6H PRN PRN Reason: HR > 140 Last Admin: 01/06/18 02:46 Dose: 10 mg Mineral Oil/White Petrolatum (Eucerin Cream) 0 gm TOP BIDPRN PRN PRN Reason: Dry Skin Morphine Sulfate (Morphine) 2 mg SLOW IVP Q4H PRN PRN Reason: Breakthrough Pain Last Admin: 01/05/18 22:16 Dose: 2 mg Morphine Sulfate (Morphine) 4 mg SLOW IVP Q2H PRN PRN Reason: Moderate to Severe Pain (6-10) Last Admin: 01/06/18 00:33 Dose: 4 mg Ondansetron HCl (Zofran) 4 mg IVP Q6H PRN PRN Reason: Nausea/Vomiting Last Admin: 01/04/18 12:34 Dose: 4 mg Sodium Chloride (Flush - Normal Saline) 10 ml IVF Q12HR [facility] Last Admin: 01/05/18 19:33 Dose: 10 ml Sodium Chloride (Flush - Normal Saline) 10 ml IVF PRN PRN PRN Reason: Saline Flush Sodium Chloride ([place] Nasal [place] 0.65%) 0 ml EA NARE QIDPRN PRN PRN Reason: Nasal Congestion
--- NOTE | 2018-01-06 09:27 | PRG ---
DATE OF SERVICE: 01/06/2018 The patient was transferred to telemetry last night, I just found out, because of an episode of supra ventricular tachycardia, requiring a Cardizem drip. SUBJECTIVE: The patient says he feels fine. He says he denies any pain. He is having no nausea or vomiting, feels pretty good. OBJECTIVE: VITAL SIGNS: On examination, his temperature is 98, pulse 140, blood pressure 126/67. His NG tube o utput was 400. Urine output is 1300. ABDOMEN: Soft, less distended. He had a bowel movement yesterday, but no flatus. LABORATORY DATA: His white count is 11, H and H of 14 and 42, platelet count of 182. Electrolytes s how his creatinine is 1.9 and a BUN of 40 with a chloride of 113. ASSESSMENT: I think he is probably dry. PLAN: We will clamp his NG tube and check a residual in a few hours. If tolerated, clamp for 6 hour s and low residue, we will discontinue.
[2018-01-06] MEDS: Digoxin 0.5 MG/2 ML AMP SLOW IVP SCH ×2 (11:29→18:30)
[2018-01-06] MEDS: Sodium Chloride 0.45% 1,000 ML IV SCH ×2 (11:30→20:26)
--- NOTE | 2018-01-06 13:37 | CON ---
DATE OF CONSULTATION: 01/06/2018 REASON FOR CONSULTATION: Atrial fibrillation/atrial flutter. HISTORY OF PRESENT ILLNESS: Mr. Cooper is a very pleasant 82-year-old white gentleman, who comes to the hospital for abdominal pain. He was diagnosed with a small-bowel obstruction and had to be taken to the OR for this. He had several lysis of adhesions performed in the OR and is better now. He, l ast night, went into tachycardia, heart rate in the 150s, and he was transferred to the telemetry. I nitially his heart rate seemed to be in the 150s what appeared to be 2:1 atrial flutter and he has be en placed on diltiazem drip now. He is disorganized back down into atrial fibrillation and RVR, hear t rate in the 130s to 140s on 5 of diltiazem drip. He, otherwise, denies any chest pain, tightness, pressure. His only complaint is abdominal discomfort. PAST MEDICAL HISTORY: 1. Paroxysmal atrial fibrillation. 2. History of cerebrovascular accident. 3. Colon cancer, status post colectomy and colostomy. 4. Hypertension. 5. Diabetes. 6. Gout. 7. Chronic renal insufficiency. PAST SURGICAL HISTORY: 1. Prostate surgery. 2. Right hemicolectomy and lymph node biopsy. 3. LINQ monitor placed. FAMILY HISTORY: Noncontributory. SOCIAL HISTORY: Social alcohol use, no tobacco or drugs. REVIEW OF SYSTEMS: A 12-point review of systems was done and it is all negative unless stated in the history of present illness. OUTPATIENT MEDICATIONS: Include, 1. Calcium. 2. Ferrous sulfate. 3. Vitamin D3. 4. Nifedipine 60 mg a day. 5. Finasteride daily. 6. Lipitor 20 mg at bedtime. 7. Losartan. 8. Carvedilol 6.25 b.i.d. 9. Pantoprazole. 10. Xarelto 15 mg daily. 11. Tamsulosin. ALLERGIES: 1. HYDROCODONE. 2. IBUPROFEN. REVIEW OF SYSTEMS: As above. PHYSICAL EXAMINATION: VITAL SIGNS: Temperature 98.0, pulse 140, respiratory rate 16, sat 92% on room air, blood pressure 1 35/75. GENERAL: Awake, alert, oriented x3, in no distress. HEENT: Normocephalic and atraumatic. NECK: Supple. LUNGS: Clear. CARDIOVASCULAR: S1 and S2, irregularly irregular heart rate in the 140s. ABDOMEN: Soft, positive bowel sounds. EXTREMITIES: Trace edema. SKIN: Warm and dry. LABORATORY WORK: Reviewed. CBC unremarkable except for white count was a little bit higher than on admission at 11. Chemistry is unremarkable. Creatinine has gone up from 1.2 to 1.9 this morning. T roponin is negative x3. CK-MB is normal. Lipase was normal. Telemetry was reviewed, atrial flutter 2:1 block initially, now in atrial fibrillation. ASSESSMENT AND PLAN: 1. Paroxysmal atrial fibrillation/flutter. 2. Small-bowel obstruction. 3. Colon cancer, status post right hemicolectomy with colostomy with subsequent small-bowel obstruct ion as above. 4. History of cerebrovascular accident, thought to be secondary to paroxysmal atrial fibrillation. PLAN: 1. We will plan on rate control. Most likely, he will come back to sinus rhythm once his stress lev el is improved. In the past, he has gone into atrial fibrillation more often than not with the stres s of his abdominal surgeries. We will try to up-titrate his diltiazem and if we can achieve rate con trol, then we will switch him to an amiodarone drip. 2. Continue to hold full anticoagulation for now until abdominal status is improved. 3. We will follow.
[2018-01-06] MEDS: Diltiazem 125 MG in Sodium Chloride 0.9% 100 ML IVPB SCH (23:37)
[2018-01-07] MEDS: Sodium Chloride 0.45% 1,000 ML IV SCH ×3 (02:27→14:51)
[2018-01-07 05:24] LABS: #Eosinphils 0.1 thou/uL (0.0-0.7); #Lymphocytes 0.8 thou/uL (1.20-3.40); #Monocytes 1.1 thou/uL (0.11-0.59); #Neutrophils 7.6 thou/uL (1.40-6.50); %Basophils 0.5 % (0.0-1.0); %Eosinophils 0.9 % (0.0-10.0); %Lymphocytes 8.3 % (21.0-51.0); %Monocytes 11.1 % (0.0-10.0); %Neutrophils 79.3 % (42.0-75.0); Hemoglobin 11.5 g/dL (14.0-18.0); Mean Corpuscular HGB CONC 33.1 g/dL (32.0-36.0); Mean Corpuscular Hemoglobin 28.8 pg (27.0-31.0); Mean Platelet Volume 8.7 fL (7.4-10.4); Platelet Count 183 thou/uL (130-400); Red Blood Cell (RBC) Count 3.99 mill/uL (4.70-6.10); White Blood Cell (WBC) Count 9.5 thou/uL (4.8-10.8)
[2018-01-07 06:23] LABS: Anion Gap 17 mmol/L (10-20); BUN (Urea Nitrogen) 35 mg/dL (8.4-25.7); Calc. Creatinine Clearance 48 mL/min (70-130); Calcium 8.2 mg/dL (7.8-10.44); Carbon Dioxide 18 mmol/L (23-31); Chloride 114 mmol/L (98-107); Estimated GFR-MDRD 49; Glucose 101 mg/dL (83-110); Potassium 3.7 mmol/L (3.5-5.1); Sodium 145 mmol/L (136-145)
[2018-01-07] MEDS: Piperacillin/Tazobactam 3.375 GM in Sodium Chloride 0.9% 100 ML IVPB SCH ×4 (06:35→23:39)
[2018-01-07] MEDS: Carvedilol 6.25 MG TAB PO SCH ×2 (08:07→16:09)
[2018-01-07] MEDS: Enoxaparin Sodium 40 MG/0.4 ML SYRINGE SC SCH (08:07)
--- NOTE | 2018-01-07 08:10 | PRG ---
DATE OF SERVICE: 01/07/2018 SUBJECTIVE: The patient feels better. He has had several bowel movements. He is hungry. PHYSICAL EXAMINATION: GENERAL: On examination, he is awake, alert. He looks good. VITAL SIGNS: Temperature is 98.4, pulse 74, blood pressure 143/66. His NG output was only 200. His urine output is good. ASSESSMENT: Doing well. PLAN: Discontinue NG. Begin clear liquids.
[2018-01-07] MEDS: Famotidine/PF 20 mg/2ml Vial SLOW IVP SCH (10:25)
[2018-01-07] MEDS: Digoxin 0.125 MG TAB PO SCH (10:25)
[2018-01-07] MEDS: Diltiazem 125 MG in Sodium Chloride 0.9% 100 ML IVPB SCH (11:41)
--- NOTE | 2018-01-07 12:59 | PDOC.PN ---
- Subjective Encounter Start Date: 01/07/18 Encounter Start Time: 12:58 Doing well. Has NGT out and tolerating clears. Ambulating and had BM. - Objective Resuscitation Status: Resuscitation Status FULL:Full Resuscitation MAR Reviewed: Yes Vital Signs & Weight: Vital Signs (12 hours) Temp Pulse Resp BP BP BP Pulse Ox 01/07/18 11:42 97.4 F L 69 20 167/73 H 94 L 01/07/18 10:25 71 01/07/18 08:07 133/63 01/07/18 07:23 98.0 F 73 20 133/63 94 L 01/07/18 03:05 98.4 F 74 18 143/66 H 95 Weight Admit Weight 211 lb 5 oz Weight 210 lb 11.2 oz I&O: 01/06/18 01/07/18 01/08/18 06:59 06:59 06:59 Intake Total 2650 2340 Output Total 1700 1950 Balance 950 390 Result Diagrams: 01/07/18 04:20 01/07/18 04:20 Phys Exam - Physical Examination Constitutional: NAD Respiratory: no wheezing, no rales, no rhonchi, clear to auscultation bilateral Cardiovascular: RRR, no significant murmur, no rub Gastrointestinal: soft, non-tender, no distention Musculoskeletal: no edema Neurological: non-focal Psychiatric: normal affect, A&O x 3 Dx/Plan (1) Atrial flutter with rapid ventricular response Code(s): I48.92 - UNSPECIFIED ATRIAL FLUTTER Status: Acute Comment: Converted to NSR. Off gtt now. Cards following. Needs to be back on anticoag when OK with surg. Was on Xarelto. (2) Small bowel obstruction Code(s): K56.609 - UNSP INTESTNL OBST, UNSP TO PARTIAL VERSUS COMPLETE OBST Status: Acute Comment: s/p adhesiolysis (3) CKD (chronic kidney disease) stage 3, GFR 30-59 ml/min Code(s): N18.3 - CHRONIC KIDNEY DISEASE, STAGE 3 (MODERATE) Status: Chronic Comment: (4) Chronic anticoagulation Code(s): Z79.01 - [employer] (CURRENT) USE OF ANTICOAGULANTS Status: Chronic (5) Dyslipidemia Code(s): E78.5 - HYPERLIPIDEMIA, UNSPECIFIED Status: Chronic (6) HTN (hypertension) Code(s): I10 - ESSENTIAL (PRIMARY) HYPERTENSION Status: Chronic Qualifiers: Hypertension type: essential hypertension Qualified Code(s): I10 - Essential (primary) hypertension Comment: - Plan * Doing well. NGT out and advancing diet. * Back in NSR, off dilt gtt. * Resume anticoagulation when ok with surg. * Ambulate.
--- NOTE | 2018-01-07 18:06 | PDOC.CTH ---
Cardiology Progress Note - Subjective He is doing better. He had 2 BM's today. He converted to sinus overnight. - Objective Vital Signs Temp Pulse Resp BP BP BP Pulse Ox 01/07/18 16:11 97.8 F 71 19 165/65 H 93 L 01/07/18 16:09 133/63 01/07/18 11:42 97.4 F L 69 20 167/73 H 94 L 01/07/18 10:25 71 01/07/18 08:07 133/63 01/07/18 07:23 98.0 F 73 20 133/63 94 L Admit Weight 211 lb 5 oz Weight 210 lb 11.2 oz 01/06/18 01/07/18 01/08/18 06:59 06:59 06:59 Intake Total 2650 2340 Output Total 1700 1950 400 Balance 950 390 -400 - Physical Examination General/Neuro: alert & oriented x3, NAD Neck: no JVD present Lungs: unlabored respirations Heart: RRR Abdomen: other: (+BS) Extremities: + edema B (trace) - Telemetry Telemetry Rhythm: NSR, PAC's - Labs Result Diagrams: 01/07/18 04:20 01/07/18 04:20 Troponin/CKMB CK-MB (CK-2) 1.5 ng/mL (0-6.6) 01/06/18 06:58 Troponin I 0.016 ng/mL (< 0.028) 01/06/18 06:58 - Assessment/Plan 1. Paroxysmal afib, currently in sinus. 2. SBO, improving. 3. S/P lysis of adhesions. PLAN: - Stop diltiazem drip. - Restart home meds when PO tolerated. - Restart Eliquis when safe from surgical standpoint. - Will follow.
[2018-01-08] MEDS: Piperacillin/Tazobactam 3.375 GM in Sodium Chloride 0.9% 100 ML IVPB SCH ×4 (05:24→23:16)
[2018-01-08] MEDS: Enoxaparin Sodium 40 MG/0.4 ML SYRINGE SC SCH (09:25)
[2018-01-08] MEDS: Digoxin 0.125 MG TAB PO SCH (09:25)
[2018-01-08] MEDS: Famotidine/PF 20 mg/2ml Vial SLOW IVP SCH (09:26)
[2018-01-08] MEDS: Carvedilol 6.25 MG TAB PO SCH ×2 (09:26→17:04)
--- NOTE | 2018-01-08 13:11 | PDOC.CTH ---
Cardiology Progress Note - Subjective Doing better. No abdominal pain, had 3 BM's today. - Objective Vital Signs Temp Pulse Resp BP BP BP Pulse Ox 01/08/18 12:01 72 172/81 H 01/08/18 11:50 98 F 64 16 190/80 H 95 01/08/18 09:26 173/88 H 01/08/18 09:25 69 01/08/18 08:25 95 01/08/18 08:23 98.6 F 67 16 173/88 H 95 01/08/18 04:00 98.2 F 68 18 172/81 H 95 Admit Weight 211 lb 5 oz Weight 211 lb 3.2 oz 01/07/18 01/08/18 01/09/18 06:59 06:59 06:59 Intake Total 2340 2210 Output Total 1950 1200 Balance 390 1010 - Physical Examination General/Neuro: alert & oriented x3, NAD Neck: no JVD present Lungs: CTA, unlabored respirations Heart: RRR Abdomen: NT/ND Extremities: other: (no edema.) - Telemetry Telemetry Rhythm: NSR - Labs Result Diagrams: 01/07/18 04:20 01/07/18 04:20 Troponin/CKMB CK-MB (CK-2) 1.5 ng/mL (0-6.6) 01/06/18 06:58 Troponin I 0.016 ng/mL (< 0.028) 01/06/18 06:58 - Assessment/Plan 1. Paroxysmal afib, currently in sinus. 2. SBO, improving. 3. S/P lysis of adhesions. PLAN: - On Coreg. - Restart Eliquis on discharge. - Will follow.
--- NOTE | 2018-01-08 13:20 | PRG ---
DATE OF SERVICE: 01/08/2018 SUBJECTIVE: The patient is having bowel movements, passing flatus. He says he is tolerating the gely ar liquids well. He is hungry. OBJECTIVE: VITAL SIGNS: Temperature is 98, pulse 72, blood pressure 173/88. GENERAL: He is awake, alert. ABDOMEN: Still kind of distended, but softer. ASSESSMENT: Status post small-bowel obstruction. PLAN: Full liquid diet.
--- NOTE | 2018-01-08 18:18 | PRG ---
DATE OF SERVICE: 01/08/2018 SUBJECTIVE: The patient feels well, got up and walked this morning. He feels like he is doing well with that. He wants to be wished to walk on his own. He has no other complaints. He has had several bowel movements today. OBJECTIVE: VITAL SIGNS: Temperature 98, pulse 72, respirations 16, O2 sat 95% on room air, BP 172/81. GENERAL APPEARANCE: Age-appropriate male in no distress. Awake, alert, oriented, pleasant, cooperat bryce. HEART: Regular rate and rhythm without murmur. LUNGS: Clear bilaterally with no wheezes. ABDOMEN: Soft, nontender, nondistended. EXTREMITIES: Warm and dry with no edema. IMPRESSION AND PLAN: 1. Postoperative atrial flutter with rapid ventricular response, now converted back to sinus rhythm with the plan to resume some Eliquis at the time of his discharge. 2. Small-bowel obstruction, status post surgery with adhesiolysis. The patient is doing well. Had resumption of bowel movements today. Advancing from clear to full liquids. 3. Chronic kidney disease, stage 3, stable. 4. Chronic anticoagulation, currently being held postoperatively. 5. Dyslipidemia, chronic, stable. 6. Essential hypertension, stable. DISPOSITION: Advancing diet. Continue to mobilize the patient. He was discharged from physical the [facility]. We will consult the walking program to continue to get him up and going.
[2018-01-08] MEDS: Saccharomyces boulardii 250 MG CAP PO SCH (20:46)
[2018-01-09] MEDS: Piperacillin/Tazobactam 3.375 GM in Sodium Chloride 0.9% 100 ML IVPB SCH ×3 (05:45→19:00)
[2018-01-09 07:10] LABS: Hemoglobin 11.1 g/dL (14.0-18.0); Mean Corpuscular HGB CONC 32.9 g/dL (32.0-36.0); Mean Corpuscular Hemoglobin 28.2 pg (27.0-31.0); Mean Corpuscular Volume 85.7 fL (78.0-98.0); Platelet Count 205 thou/uL (130-400); RBC Distribution Width 13.9 % (11.5-14.5); Red Blood Cell (RBC) Count 3.95 mill/uL (4.70-6.10); White Blood Cell (WBC) Count 7.5 thou/uL (4.8-10.8)
[2018-01-09 07:16] LABS: Anion Gap 11 mmol/L (10-20); BUN (Urea Nitrogen) 17 mg/dL (8.4-25.7); Calc. Creatinine Clearance 76 mL/min (70-130); Calcium 8.4 mg/dL (7.8-10.44); Carbon Dioxide 24 mmol/L (23-31); Chloride 114 mmol/L (98-107); Estimated GFR-MDRD 82; Glucose 85 mg/dL (83-110); Potassium 3.3 mmol/L (3.5-5.1); Sodium 146 mmol/L (136-145)
[2018-01-09 07:28] LABS: Band 1 % (5-11); Eosinophils 1 % (0-10); Lymphocytes 14 % (21-51); MDiff Complete? YES; Monocytes 8 % (0-10); Neutrophil 76 % (42-75); PLT Morphology Comment Appears Adequate; Polychromasia SLIGHT = 2-3 cells (100X) (0-2/hpf)
[2018-01-09] MEDS: Saccharomyces boulardii 250 MG CAP PO SCH (08:38)
[2018-01-09] MEDS: Enoxaparin Sodium 40 MG/0.4 ML SYRINGE SC SCH (08:38)
[2018-01-09] MEDS: Famotidine/PF 20 mg/2ml Vial SLOW IVP SCH (08:39)
[2018-01-09] MEDS: Carvedilol 6.25 MG TAB PO SCH ×2 (08:39→18:20)
--- NOTE | 2018-01-09 09:51 | PRG ---
DATE OF SERVICE: 01/09/2018 SUBJECTIVE: The patient says he feels a lot better. His bowels are functioning well. He is tolerat ing full liquids well. No nausea or vomiting. PHYSICAL EXAMINATION: VITAL SIGNS: His temperature is 98.4, pulse 68, blood pressure 166/79. GENERAL: He looks good. He is wide awake, sitting up in a chair. He said he is about to go have an other bowel movement. He says he is having a lot of rumbling in his abdomen. LUNGS: Clear. ABDOMEN: Still a little bit distended, but better, soft, nontender. Wound is okay. GENITOURINARY: He is urinating well. Bowels are functioning well. LABORATORY DATA: His white count 7.5, H&H 11 and 33, platelet count 205. Electrolytes show an eleva nilsa sodium at 146. His potassium is 3.3, otherwise okay. ASSESSMENT AND PLAN: Small-bowel obstruction, resolved. PLAN: Regular diet. Discharge when okay with Cardiology.
[2018-01-09 15:56] VITALS: BP 180/90; TEMP 98.6
== END 2018-01-09 18:34 | disposition home or self-care (01) | DRG 330 ==
LOC: ERS 09:11 → T4-B 18:21 → SURG A 01-04 21:13 → 2NO 01-06 02:02
PROVIDERS: ADMIT Internal Medicine; ATTEND Internal Medicine
PROC: 0DQ80ZZ Repair Small Intestine, Open Approach (ICD-10-PCS; principal; 2018-01-04)
PROC: 0DNW0ZZ Release Peritoneum, Open Approach (ICD-10-PCS; 2018-01-04)
PROC: 0WJG0ZZ Inspection of Peritoneal Cavity, Open Approach (ICD-10-PCS; 2018-01-04)
PROC: 0DN80ZZ Release Small Intestine, Open Approach (ICD-10-PCS; 2018-01-04)
DX: K56.600 Partial intestinal obstruction, unspecified as to cause (principal); N17.9 Acute kidney failure, unspecified; I48.92 Unspecified atrial flutter; Z85.038 Personal history of other malignant neoplasm of large intestine; Z90.49 Acquired absence of other specified parts of digestive tract; K21.9 Gastro-esophageal reflux disease without esophagitis; I25.10 Atherosclerotic heart disease of native coronary artery without angina pectoris; I12.9 Hypertensive chronic kidney disease with stage 1 through stage 4 chronic kidney disease, or unspecified chronic kidney disease; M10.9 Gout, unspecified; N40.0 Benign prostatic hyperplasia without lower urinary tract symptoms; N18.3 Chronic kidney disease, stage 3 (moderate); E78.5 Hyperlipidemia, unspecified; Z79.01 Long term (current) use of anticoagulants; I48.91 Unspecified atrial fibrillation; K46.9 Unspecified abdominal hernia without obstruction or gangrene; I48.0 Paroxysmal atrial fibrillation; Z86.73 Personal history of transient ischemic attack (TIA), and cerebral infarction without residual deficits; Z88.5 Allergy status to narcotic agent; Z88.6 Allergy status to analgesic agent
CPT/HCPCS: 36415; 71045; 74018; 74019; 74177; 74250; 80048; 80053; 82553; 83605; 83690; 83735; 84100; 84484; 85025; 93005; 93010; 96374; 96375; G8978-GP-CJ; G8979-GP-CJ; G8980-GP-CJ; J0360; J0694; J1160; J1650; J2001; J2270; J2370; J2405; J2543; J2550; J2704; J3010; J7050; S0028

== ENCOUNTER → 2018-09-17 | Day surgery (SDC) | payer MEDICARE ==
[2018-09-16 14:41] VITALS: BMI 29.8
--- NOTE | 2018-09-17 04:27 | HP ---
HISTORY OF PRESENT ILLNESS: This is an 83-year-old male referred to me for evaluation of occult GI bleeding. The patient was found to have positive fecal occult blood testing. The patient also has history of previous colonoscopy and polypectomy in the past. He had a very large polyp in the ascending colon area which could not be removed endoscopically. He underwent right colectomy. The patient had done well after surgery. The patient has no abdominal pain. No hematochezia. No melena. The patient was found to have positive fecal occult blood testing. The patient comes for a colonoscopy because of the occult GI bleeding and also history of colon polyp. ALLERGIES: HYDROCODONE, IBUPROFEN, AND ELIQUIS. MEDICAL ILLNESS: 1. Hypertension. 2. Hyperlipidemia. 3. Prostatic hypertrophy. 4. Chronic acid reflux. 5. Osteoarthritis. 6. Coronary artery disease. PHYSICAL EXAMINATION: VITAL SIGNS: Pulse is 73, blood pressure 120/70. HEENT: Conjunctivae clear. CARDIOVASCULAR: First and second heart sounds normal. LUNGS: Clear to auscultation. ABDOMEN: Soft. No organomegaly. No tenderness. No masses. ADMITTING DIAGNOSES: Occult gastrointestinal bleeding, history of colon polyp. PLAN: Colonoscopy. Job ID: [id number]
--- NOTE | 2018-09-17 10:51 | OP ---
DATE OF PROCEDURE: 09/17/2018 PREOPERATIVE DIAGNOSES: An 83-year-old male with previous right colectomy for a very large , sessile polyp_. The patient is positive for occult blood in stool. The patient comes in for colonoscopy. POSTOPERATIVE DIAGNOSES: 1. Sigmoid diverticular disease. 2. Small polyp, descending colon. 3. Healthy anastomosis. 4. Large hemorrhoids. 5. Radiation proctitis. OPERATIVE PROCEDURE: Colonoscopy with polyp biopsy. DESCRIPTION OF PROCEDURE: The patient was placed on his left lateral position and was given sedation by Anesthesia Department. A rectal exam was done before the scope was advanced into the rectum. No lesions felt on rectal exam. A [employer]ax video colonoscope was introduced into the rectum and advanced all the way to the anastomotic area. The anastomotic area appears healthy. On withdrawal of scope from the anastomotic area down the transverse colon, splenic flexure, and no pathology. He had small, sessile, descending colon polyp removed with biopsy forceps. Otherwise, in the descending colon, no pathology. The sigmoid colon shows scattered diverticula. The rectum showed radiation proctitis, telangiectasia. He also had large hemorrhoids. DISCHARGE PLAN: An 83-year-old male came for a colonoscopy because of positive fecal occult blood testing and also has had a very large colon polyp removed in the past with right colectomy. The colonoscopy showed radiation proctitis, hemorrhoids, and sigmoid diverticular disease. He also had a small polyp removed from descending colon. DISCHARGE RECOMMENDATIONS: 1. The patient advised to call me if he develops abdominal pain, hematochezia. 2. High-fiber diet. 3. To come back to clinic in 2 weeks. Job ID: [id number] [facility]
== END ==
LOC: SDC 06:47
PROVIDERS: ATTEND Internal Medicine Gastroenterology
PROC: 0DBM8ZX Excision of Descending Colon, Via Natural or Artificial Opening Endoscopic, Diagnostic (ICD-10-PCS; principal; 2018-09-17)
DX: R19.5 Other fecal abnormalities (principal); K63.5 Polyp of colon; K57.30 Diverticulosis of large intestine without perforation or abscess without bleeding; K62.7 Radiation proctitis; K64.9 Unspecified hemorrhoids; I10 Essential (primary) hypertension; E78.5 Hyperlipidemia, unspecified; K21.9 Gastro-esophageal reflux disease without esophagitis; I25.10 Atherosclerotic heart disease of native coronary artery without angina pectoris; N40.0 Benign prostatic hyperplasia without lower urinary tract symptoms; Z86.010 Personal history of colon polyps; Z88.5 Allergy status to narcotic agent; Z88.8 Allergy status to other drugs, medicaments and biological substances
CPT/HCPCS: 88305

== ENCOUNTER 2020-07-27 13:10 | Outpatient (CLI) | payer MEDICARE | END 2020-07-27 13:11 | disposition home or self-care (01) | LOC: RAD 13:10 | PROVIDERS: ATTEND Nurse Practitioner Family | DX: Z01.818 Encounter for other preprocedural examination (principal); C18.9 Malignant neoplasm of colon, unspecified; C61 Malignant neoplasm of prostate; I12.9 Hypertensive chronic kidney disease with stage 1 through stage 4 chronic kidney disease, or unspecified chronic kidney disease; N18.30 Chronic kidney disease, stage 3 unspecified; N40.1 Benign prostatic hyperplasia with lower urinary tract symptoms; R33.8 Other retention of urine; I51.7 Cardiomegaly; I63.9 Cerebral infarction, unspecified; E78.2 Mixed hyperlipidemia; D63.1 Anemia in chronic kidney disease; I25.10 Atherosclerotic heart disease of native coronary artery without angina pectoris; R29.898 Other symptoms and signs involving the musculoskeletal system; Z91.81 History of falling; Z95.5 Presence of coronary angioplasty implant and graft; Z87.19 Personal history of other diseases of the digestive system; Z90.49 Acquired absence of other specified parts of digestive tract | CPT/HCPCS: 36415; 71046; 80053; 85025 ==

== ENCOUNTER 2021-03-01 11:24 | Outpatient (CLI) | payer MEDICARE ==
[2021-03-01 13:27] LABS: Hemoglobin 11.7 g/dL (13.5-17.5); Mean Corpuscular HGB CONC 34.1 g/dL (32.0-36.0); Mean Corpuscular Hemoglobin 29.3 pg (27.0-33.0); Mean Corpuscular Volume 85.8 fl (81.2-95.1); Mean Platelet Volume 10.2 fl (7.4-10.4); Platelet Count 245 10x3/uL (150-450); RBC Distribution Width 14.4 % (11.5-14.5); White Blood Cell (WBC) Count 4.5 10x3/uL (3.5-10.5)
[2021-03-01 13:50] LABS: INR-International Normal Ratio 1.2; Prothrombin Time 13.1 sec (9.5-12.1)
[2021-03-01 14:04] LABS: Anion Gap 14 mmol/L (10-20); BUN (Urea Nitrogen) 20 mg/dL (8.4-25.7); Calc. Creatinine Clearance 0 mL/min (70-130); Calcium 8.9 mg/dL (7.8-10.44); Carbon Dioxide 24 mmol/L (23-31); Chloride 106 mmol/L (98-107); Glucose 103 mg/dL (83-110); Potassium 4.8 mmol/L (3.5-5.1); Sodium 139 mmol/L (136-145)
[2021-03-02 11:45] LABS: SARS-CoV-2 PCR by NAA Not Detected (NotDetected)
== END 2021-03-01 11:25 | disposition home or self-care (01) ==
LOC: LABBT 11:24
PROVIDERS: ATTEND Urology
DX: Z01.818 Encounter for other preprocedural examination (principal); Z20.822 Contact with and (suspected) exposure to COVID-19
CPT/HCPCS: 80048; 85027; 85610; 85730; 93005; U0003; U0005; 93010

== ENCOUNTER 2021-03-06 05:45 | Day surgery (SDC) | payer MEDICARE ==
[2021-03-03 11:28] VITALS: BMI 29.4
[2021-03-06] MEDS ORDERED: Levofloxacin 500 mg/D5W 100 ml Premix Bag ONE (06:04)
[2021-03-06] MEDS ORDERED: Propofol 500 MG/50 ML VIAL ONE (07:07)
[2021-03-06] MEDS ORDERED: Fentanyl 100 MCG/2 ML VIAL ONE ×2 (07:07→08:46)
[2021-03-06] MEDS ORDERED: Bacitracin Zinc Ointment 30 gm TUBE ONE (07:08)
[2021-03-06] MEDS ORDERED: Bupivacaine 0.25% 10 ML VIAL ONE ×2 (07:08)
[2021-03-06] MEDS ORDERED: Ampicillin 2 GM VIAL ONE (07:18)
[2021-03-06] MEDS ORDERED: Sodium Chloride 0.9% 100 ML ONE (07:18)
[2021-03-06] MEDS ORDERED: PROPOFOL 200 MG/20 ML VIAL ONE (07:28)
[2021-03-06] MEDS ORDERED: Ondansetron PF 4 MG/2 ML Vial ONE (07:28)
[2021-03-06] MEDS ORDERED: Lidocaine 1% PF 5 ML VIAL ONE (07:28)
[2021-03-06] MEDS ORDERED: Hyoscyamine Sulfate SL 0.125 mg Tablet ONE ×2 (08:56→08:57)
[2021-03-06] MEDS ORDERED: Phenazopyridine HCl 100 MG TAB ONE (08:56)
== END 2021-03-06 11:00 | disposition home or self-care (01) ==
LOC: SDC 05:45
PROVIDERS: ATTEND Urology
PROC: 0T7D8DZ Dilation of Urethra with Intraluminal Device, Via Natural or Artificial Opening Endoscopic (ICD-10-PCS; principal; 2021-03-06)
PROC: 0VNTXZZ Release Prepuce, External Approach (ICD-10-PCS; 2021-03-06)
DX: N40.1 Benign prostatic hyperplasia with lower urinary tract symptoms (principal); R33.8 Other retention of urine; N47.2 Paraphimosis; I13.10 Hypertensive heart and chronic kidney disease without heart failure, with stage 1 through stage 4 chronic kidney disease, or unspecified chronic kidney disease; N18.30 Chronic kidney disease, stage 3 unspecified; M19.90 Unspecified osteoarthritis, unspecified site; M10.9 Gout, unspecified; K21.9 Gastro-esophageal reflux disease without esophagitis; G62.9 Polyneuropathy, unspecified; I48.0 Paroxysmal atrial fibrillation; K59.00 Constipation, unspecified; Z85.46 Personal history of malignant neoplasm of prostate; Z86.73 Personal history of transient ischemic attack (TIA), and cerebral infarction without residual deficits; Z87.891 Personal history of nicotine dependence; Z79.01 Long term (current) use of anticoagulants; Z79.899 Other long term (current) drug therapy; Z88.5 Allergy status to narcotic agent; Z90.49 Acquired absence of other specified parts of digestive tract
CPT/HCPCS: 54001; C9740; L8699; J0290; J1956; J2405; J2704; J3010; J3490; S0020